=== PATIENT | male | born 1975 | race Two or more races ===

== ENCOUNTER 2020-07-25 10:39 | Inpatient (IN) | payer MEDICAID ==
[~2020-07-25] VITALS: Ht 157.5 cm; Wt 74.8 kg
[~2020-07-25 10:39] MED LIST: HYDROCHLOROTHIA25 MG ORAL
[2020-07-25 11:30] VITALS: BP 118/78
--- NOTE | 2020-07-25 11:30 | NUR ---
ED Nurse Note: Pt came to ED for abdominal pain 8/10 entire abdomen. He states he needs fluid removal. Pt has history of liver cirrhosis. Pt is alert and orientedx4, ambulatory. Pt set up on monitor. Blood drawn and sent to lab. No nausea, vomiting.
[2020-07-25 11:39] LABS: BASOPHILS % (AUTO) 1.4 % (0.0-2.0); HEMATOCRIT 26.3 % (42.0-52.0); LYMPHOCYTES % (AUTO) 6.9 % (20.0-45.0); MEAN CORPUSCULAR VOLUME 86 FL (80-99); NEUTROPHILS % (AUTO) 78.7 % (45.0-75.0); PLATELET COUNT 105 K/UL (150-450); RED BLOOD COUNT 3.07 M/UL (4.70-6.10); RED CELL DISTRIBUTION WIDTH 15.2 % (11.6-14.8); WHITE BLOOD COUNT 4.8 K/UL (4.8-10.8)
[2020-07-25 11:54] LABS: ANION GAP 10 mmol/L (5-15); BLOOD UREA NITROGEN 17 mg/dL (7-18); CALCIUM 7.3 MG/DL (8.5-10.1); CARBON DIOXIDE 19 MMOL/L (21-32); CHLORIDE 91 MMOL/L (98-107); POTASSIUM 3.3 MMOL/L (3.5-5.1); SODIUM 120 MMOL/L (136-145)
[2020-07-25 12:04] LABS: ALANINE AMINOTRANSFERASE 39 U/L (12-78); ALBUMIN 1.8 G/DL (3.4-5.0); ALBUMIN/GLOBULIN RATIO 0.4 (1.0-2.7); ALKALINE PHOSPHATASE 148 U/L (46-116); ASPARTATE AMINO TRANSFERASE 106 U/L (15-37); BILIRUBIN,DIRECT 0.7 MG/DL (0.0-0.3); BILIRUBIN,TOTAL 1.1 MG/DL (0.2-1.0)
[2020-07-25] MEDS ORDERED: Morphine Sulfate 4mg/ml Inj (IV USE ONLY) IVP ONE (13:15)
[2020-07-25 13:22] LABS: APPEARANCE,URINE CLEAR; BILIRUBIN, URINE NEGATIVE (NEGATIVE); COLOR,URINE BROWN; GLUCOSE, URINE (UA) NEGATIVE (NEGATIVE); KETONES,URINE 1+ (NEGATIVE); LEUKOCYTE ESTERASE ,URINE 1+ (NEGATIVE); NITRITE,URINE NEGATIVE (NEGATIVE); PH,URINE 5 (4.5-8.0); PROTEIN,URINE 1+ (NEGATIVE); UROBILINOGEN,URINE 1 MG/DL (0.0-1.0)
--- NOTE | 2020-07-25 13:22 | Emergency Room Report ---
History of Present Illness General Chief Complaint: Abdominal Pain Source: Patient Present Illness HPI 45-year-old male with history of alcoholism and alcoholic liver cirrhosis and chronic ascites here with abdominal distention and epigastric pain. Patient says that he has been having mild epigastric jean marie pain and abdominal distention worsening over the past several days. Patient has been seen here in the past for paracentesis in the emergency department. Pain is sharp in nature, located in the epigastrium, does not otherwise radiate. No fevers, chills, chest pain, palpitations, shortness of breath, back pain, other abdominal pain, nausea, vomiting, diarrhea, dysuria. Allergies: Coded Allergies: No Known Allergies (Unverified , 05/24/20) COVID-19 Screening Contact w/high risk pt: No Experienced COVID-19 symptoms?: No COVID-19 Testing performed REFRIGERATOR CRATER: No Nursing Documentation-[facility] Past Medical History: No History, Except For Review of Systems All Other Systems: negative except mentioned in HPI Physical Exam Vital Signs Date Time Temp Pulse Resp B/P (MAP) Pulse Ox O2 Delivery O2 Flow Rate FiO2 07/25/20 10:47 98.8 110 17 120/74 (89) 97 Room Air 07/25/20 11:30 98 Sp02 EP Interpretation: reviewed, normal General Appearance: no apparent distress, alert, GCS 15, non-toxic Head: normocephalic, atraumatic Eyes: bilateral eye normal inspection, bilateral eye PERRL ENT: hearing grossly normal, normal pharynx, no angioedema, normal voice Neck: full range of motion, supple/symm/no masses Respiratory: chest non-tender, lungs clear, normal breath sounds, speaking full sentences Cardiovascular #1: regular rate, rhythm, no edema Cardiovascular #2: 2+ carotid (R), 2+ carotid (L), 2+ radial (R), 2+ radial (L), 2+ dorsalis pedis (R), 2+ dorsalis pedis (L) Gastrointestinal: normal bowel sounds, non tender, soft, no guarding, no rebound, other - Severely distended abdomen with positive fluid wave. No tenderness on palpation. No rebound or guarding Rectal: deferred Genitourinary: normal inspection, no CVA tenderness Musculoskeletal: back normal, normal range of motion, calf tenderness, gait/station normal, non-tender Neurologic: alert, motor strength/tone normal, oriented x3, sensory intact, responsive, speech normal Psychiatric: judgement/insight normal, memory normal, mood/affect normal, no suicidal/homicidal ideation Reflexes: 3+ bicep (R), 3+ bicep (L), 3+ tricep (R), 3+ tricep (L), 3+ knee (R), 3+ knee (L) Lymphatic: no adenopathy Medical Decision Making Diagnostic Impression: Primary Impression: Alcoholic cirrhosis of liver with ascites Additional Impressions: Pancreatitis Hyponatremia ER Course Laboratory Tests Test 07/25/20 11:20 07/25/20 12:10 White Blood Count 4.8 K/UL (4.8-10.8) Red Blood Count 3.07 M/UL (4.70-6.10) L Hemoglobin 9.0 G/DL (14.2-18.0) L Hematocrit 26.3 % (42.0-52.0) L Mean Corpuscular Volume 86 FL (80-99) Mean Corpuscular Hemoglobin 29.2 PG (27.0-31.0) Mean Corpuscular Hemoglobin Concent 34.1 G/DL (32.0-36.0) Red Cell Distribution Width 15.2 % (11.6-14.8) H Platelet Count 105 K/UL (150-450) L Mean Platelet Volume 5.8 FL (6.5-10.1) L Neutrophils (%) (Auto) 78.7 % (45.0-75.0) H Lymphocytes (%) (Auto) 6.9 % (20.0-45.0) L Monocytes (%) (Auto) 13.0 % (1.0-10.0) H Eosinophils (%) (Auto) 0.0 % (0.0-3.0) Basophils (%) (Auto) 1.4 % (0.0-2.0) Sodium Level 120 MMOL/L (136-145) L Potassium Level 3.3 MMOL/L (3.5-5.1) L Chloride Level 91 MMOL/L (98-107) L Carbon Dioxide Level 19 MMOL/L (21-32) L Anion Gap 10 mmol/L (5-15) Blood Urea Nitrogen 17 mg/dL (7-18) Creatinine 1.0 MG/DL (0.55-1.30) Estimated Glomerular Filtration Rate > 60 mL/min (>60) Glucose Level 193 MG/DL (74-106) H Calcium Level 7.3 MG/DL (8.5-10.1) L Total Bilirubin 1.1 MG/DL (0.2-1.0) H Direct Bilirubin 0.7 MG/DL (0.0-0.3) H Aspartate Amino Transferase (AST) 106 U/L (15-37) H Alanine Aminotransferase (ALT) 39 U/L (12-78) Alkaline Phosphatase 148 U/L (46-116) H Total Protein 6.5 G/DL (6.4-8.2) Albumin 1.8 G/DL (3.4-5.0) L Globulin 4.7 g/dL Albumin/Globulin Ratio 0.4 (1.0-2.7) L Lipase 1172 U/L (73-393) H Urine Color Brown Urine Appearance Clear Urine pH 5 (4.5-8.0) Urine Specific [place] 1.020 (1.005-1.035) Urine Protein 1+ (NEGATIVE) H Urine Glucose (UA) Negative (NEGATIVE) Urine Ketones 1+ (NEGATIVE) H Urine Blood 1+ (NEGATIVE) H Urine Nitrite Negative (NEGATIVE) Urine Bilirubin Negative (NEGATIVE) Urine Urobilinogen 1 MG/DL (0.0-1.0) H Urine Leukocyte Esterase 1+ (NEGATIVE) H Urine RBC 0-2 /HPF (0 - 0) H Urine WBC 2-4 /HPF (0 - 0) Urine Squamous Epithelial Cells None /LPF (NONE/OCC) Urine Bacteria Occasional /HPF (NONE) Urine Hyaline Casts 10-15 /LPF (NONE) H Urine Fine Granular Casts 0-2 /LPF (NONE) H Urine Mucus Moderate /LPF (NONE/OCC) H EKG: NSR, no ischemia, intervals WNL. No ectopy Rhythm strip: patient monitored for arrhythmias - no malignant dysrhythmias, runs of PVCs, nor pauses noted 45-year-old male with history of alcoholic liver cirrhosis and chronic ascites here with abdominal distention and epigastric abdominal pain. Patient was noted to be hyponatremic with a sodium of 120 in the emergency department. Potassium 3.3. Chloride 91. Patient was given 1 L of IV normal saline and repeat BMP will be performed after the fluids are finished infusing. Potassium was also repleted in the emergency department. EKG was unremarkable. Patient had a non- peritoneal take abdomen and no leukocytosis. Low suspicion for SBP at this time. Lipase highly elevated at 1200. Patient will undergo CT abdomen pelvis with IV contrast. Signed out to oncoming physician. Patient to be admitted to telemetry upon completion of CT scan. Last Vital Signs Date Time Temp Pulse Resp B/P (MAP) Pulse Ox O2 Delivery O2 Flow Rate FiO2 07/25/20 11:30 99 16 Room Air 98 07/25/20 11:30 98.8 118/78 98 Referrals: NOT CHOSEN ZULAY/,REFERRING (PCP) Garry Romero M.D. Jul 25, 2020 13:22
[2020-07-25] MEDS ORDERED: Omnipaque-300 100ml vial INJ PRN (13:30)
--- NOTE | 2020-07-25 14:10 | Consultation ---
Consult Note Consult Note Asked to evaluate at the request of Dr. Willis for fluid and electrolyte gerson morton 45-year-old male with history of alcoholism and alcoholic liver cirrhosis and chronic ascites here with abdominal distention and epigastric pain. Patient says that he has been having mild epigastric jean marie pain and abdominal distention worsening over the past several days. Patient has been seen here in the past for paracentesis in the emergency department. Pain is sharp in nature, located in the epigastrium, does not otherwise radiate. No fevers, chills, chest pain, palpitations, shortness of breath, back pain, other abdominal pain, nausea, vomiting, diarrhea, dysuria. Allergies: No Known Allergies (Unverified , 05/24/20) COVID-19 Screening Contact w/high risk pt: No Experienced COVID-19 symptoms?: No COVID-19 Testing performed CONTENT DEVELOPMENT SPECIALIST: No VITAL SIGNS: Temperature 97.9, pulse is 77, blood pressure 110/71. GENERAL APPEARANCE: No acute distress. HEAD AND NECK: Slightly whitish tongue. HEART: Normal rate. LUNGS: Clear. ABDOMEN: Distended with ascites. Had big umbilical hernia. EXTREMITIES: No edema NEUROLOGIC: Awake, alert, oriented x3. LABORATORY AND DIAGNOSTIC DATA: Sodium 123, potassium 3.7, chloride 95, bicarb 18, BUN 17, creatinine 1, glucose is 131. Bilirubin is 1.1. Ammonia is 82. Lipase level is 1068. AST 84, ALT 39, alkaline phosphatase is 142. Albumin is 1.8. . Assessment/Plan Hyponatremia Hypokalemia Anemia, low iron, low folate Hypoalbuminemia High lipase Cirrhosis, elevated ammonia level, portal hypertension Slow saline hydration Potassium supplement Anemia work-up Muro catheter Monitor intake and output Per consultants True Smith MD Jul 25, 2020 14:10
--- NOTE | 2020-07-25 14:24 | NUR ---
ED Nurse Note: Report given to Luke RODRIGUEZ [facility] floor.
--- NOTE | 2020-07-25 14:40 | NUR ---
ED Nurse Note: Pt transferred to [facility] floor with all belongings. Pt is alert and orientedx4, ambulatory. No acute distress.
--- NOTE | 2020-07-25 14:45 | NUR ---
NURSE NOTES: Received report from Lizeth from ER. Patient was admitted, patient is AAOX4, on room air. Breathing is even and unlabored, no SOB noted at this time. IV site patent and intact. Belongings checked, signed and confirmed with patient. Skin is intact, able to ambulate with assist. Patient has a sever distended abdomen with a hernia at LLQ. Patient complaints of pain when touched. Abdomen is very round, tender, and distended. Patient stated he only takes one medication, patient states he lives in his van and is considered homeless. RN contacted Dr. Story for admission order, awaiting call back. Bed is locked and placed in lowest position with bed alarm on. Call light within reach. Will continue to monitor
[2020-07-25] MEDS: D5NS w/KCl 40mEq 1000ml 1,000 ML IV SCH (15:00)
[2020-07-25 16:00] VITALS: BP 113/65
--- NOTE | 2020-07-25 16:31 | Diagnostic Imaging Report ---
Clinical Indication: Abdominal distention and epigastric pain Technique: No oral contrast utilized, per emergency room physician request IV administration nonionic contrast. Venous phase spiral acquisition obtained through the abdomen and pelvis. Multiplanar reconstructions were generated. Total dose length product 584 mGycm. CTDIvol(s) 11 mGy. Dose reduction achieved using automated exposure control Comparison: none Findings: There is massive ascites. No free intraperitoneal gas demonstrated. Ascites protrudes into a large periumbilical hernia and distends it. Fluid also herniates into the bilateral inguinal canals.. There is considerable edema of the anterior abdominal wall subcutaneous fat. There is extensive edema of the mesenteric and omental fat. There is also a lumbar region edema. Lack of enteric contrast limits assessment of the GI tract. The distal esophagus, stomach, duodenum are unremarkable. No small bowel distention. The appendix is normal. No evidence of diverticulosis or diverticulitis. The liver demonstrates some atrophy, relative hypertrophy of the left lobe, and surface nodularity. No focal abnormality. The gallbladder and bile ducts are unremarkable. Large paraesophageal varices are demonstrated. There are also some perigastric varices. The spleen is not enlarged. The pancreas, adrenals, kidneys are unremarkable. No retroperitoneal or mesenteric mass or adenopathy. No pelvic mass or adenopathy. The included lung bases are clear. The bones demonstrate evidence of prior thoracolumbar spine fusion surgery. Impression: Limited assessment of the GI tract, due to lack of enteric contrast administration. Evidence of hepatic cirrhosis Stigmata of portal hypertension, including massive ascites and large esophageal varices. Anasarca, likely related to the above, with diffuse edema of the subcutaneous, mesenteric, omental fat in addition to the ascites Ascites herniated into a large periumbilical hernia, as well as into the bilateral inguinal canals Evidence of prior spinal fusion surgery The CT scanner at [facility] is accredited by the [employer] and the scans are performed using protocols designed to limit radiation exposure to as low as reasonably achievable to attain images of sufficient resolution adequate for diagnostic evaluation.
--- NOTE | 2020-07-25 18:19 | Brief Operative Note ---
Immediate Post Operative Note Operative Note Pre-op Diagnosis: ascites Procedure: paracentesis Post-op Diagnosis: same as pre-op Surgeon: Janusz Kamara Anesthesia: local Specimen: yes - 50 ml fluid sent to lab Complications: none Fluids: none Implant(s) used?: No Dominguez Kamara MD Jul 25, 2020 18:19
--- NOTE | 2020-07-25 18:19 | Pre-Procedure Note/Attestation ---
Pre-Procedure Note/Attestation Complete Prior to Procedure Planned Procedure: not applicable Procedure Narrative: paracentesis Indications for Procedure Pre-Operative Diagnosis: ascites Attestation I attest that I discussed the nature of the procedure; its benefits; risks and complications; and alternatives (and the risks and benefits of such alternatives), prior to the procedure, with the patient (or the patient's legal client services representative). I attest that, if there was a reasonable possibility of needing a blood almanzar sfusion, the patient (or the patient's legal client services representative) was given the [facility] standardized written summary, pursuant to the Ruben Maritza Blood Safety Act ([place] Health and Safety Code # 1645, as amended). I attest that I re-evaluated the patient just prior to the surgery and that there has been no change in the patient's H&P, except as documented below: Dominguez Guadarrama MD Jul 25, 2020 18:19
--- NOTE | 2020-07-25 18:29 | Diagnostic Imaging Report ---
Indications: Ascites Technique: Ultrasound used to localize optimal puncture site. Sterile prepping and draping left lower quadrant. Local anesthesia with 1% lidocaine. Under real-time ultrasound guidance, puncture peritoneal space using paracentesis needle. Stylet removed. Catheter placed to vacuum bottle suction. Total 6.2 liters of cloudy yellow fluid aspirated. Patient tolerated procedure well, without immediate complication. Findings: Followup sonography demonstrates complete resolution of peritoneal fluid. Impression: Successful ultrasound-guided paracentesis, yielding 6.2 liters of fluid
[2020-07-25] MEDS: cefTRIAXone 1 GM in D5W 55 ML IVPB SCH (18:50)
--- NOTE | 2020-07-25 19:34 | NUR ---
NURSE HAND-OFF: Important Events on Shift: Paracentesis 6.2L out, vomitted, admission Patient Status: stable Diet: NPO Pending Orders: N/a Pending Results/Labs:N/a Pending MD notification:N/a Latest Vital Signs: Temperature 98.4 , Pulse 95 , B/P 113 /65 , Respiratory Rate 20 , O2 SAT 99 , Room Air, O2 Flow Rate . Vital Sign Comment: Stable Latest Taylor Fall Score: 30 Fall Risk: Medium Risk Safety Measures: Call light Within Reach, Bed Alarm , Side Rails Side Rails x2, Bed position Low and Locked. Fall Precautions: Yellow Socks Yellow Gown Report given to JENNIFER Sutherland.
--- NOTE | 2020-07-25 19:35 | NUR ---
NURSE NOTES: Received report from sugey fragoso. patient is on bed, awake and verbally responsive. on room air. no sob. per richmond, " s/p paracentesis (left abdomen site) 6.2 liters out and an hernia on the lower abdomen. patent denies any pain at the moment. had vomited and zofran given. NPO except ice chips and meds. muñoz inserted today 18F for strict I and O. right ac running d5Ns + 40 meq @ 75 ml/s hr. reiterated to call and ask for assistance. call light and light button within easy reach. bed alarm on. bed locked and in lowest position.
[2020-07-25 20:00] VITALS: BP 97/59
[2020-07-25] MEDS: Acetaminophen 500mg (ES) tab ORAL PRN (20:30)
--- NOTE | 2020-07-25 22:30 | NUR ---
NURSE NOTES: patient complains of troubled sleeping. dr. villa called and received an order to give benadryl 25 mg po x1 for insomnia. order noted and carried out. pt took the medication.
[2020-07-26] VITALS: BP 107/71
[2020-07-26] MEDS: Acetaminophen 500mg (ES) tab ORAL PRN ×2 (02:22→08:18)
--- NOTE | 2020-07-26 03:30 | Consultation ---
DATE OF CONSULTATION: 07/25/2020 HISTORY OF PRESENT ILLNESS: This is a 45-year-old male with a history of alcohol dependence, alcoholic cirrhosis, and left-sided abdominal distention, who has been admitted to the hospital for medical stabilization. The patient is a anxiety. The patient is drinking heavily. The patient has hypertension, , anxiety in the past ?. No suicidal or homicidal ideation noted. The patient has insomnia and anxiety. PAST PSYCHIATRY HISTORY: Depression and anxiety. PAST MEDICAL HISTORY: As above. ALLERGIES: No known drug allergies. SUBSTANCE ABUSE HISTORY: No known history of illicit drug use or alcohol. MENTAL STATUS EXAMINATION: The patient is alert and oriented times self, place, and situation. Mood is anxious. Affect is blunted. Congruent with mood. Thought process is concrete. Thought content, no suicidal or homicidal ideation. Cognition is intact. Insight and judgment is fair. ASSESSMENT: Stratton I Alcohol dependence. Anxiety disorder. Insomnia. Stratton II Deferred. Stratton III As above. Stratton IV . Stratton V 50. PLAN: 1. We will start the patient on Ativan p.r.n. 2. Thiamine. 3. Folate. 4. Remeron. Allison Naik M.D. DR: WADE JOB#: [id number] CC:
[2020-07-26 04:00] VITALS: BP 107/70
[2020-07-26] MEDS: D5NS w/KCl 40mEq 1000ml 1,000 ML IV SCH (04:20)
[2020-07-26 05:30] LABS: HEMATOCRIT 27.1 % (42.0-52.0); HEMOGLOBIN 9.2 G/DL (14.2-18.0); MEAN CORPUSCULAR VOLUME 86 FL (80-99); PLATELET COUNT 94 K/UL (150-450); RED BLOOD COUNT 3.16 M/UL (4.70-6.10); RED CELL DISTRIBUTION WIDTH 15.3 % (11.6-14.8); WHITE BLOOD COUNT 5.1 K/UL (4.8-10.8)
[2020-07-26 05:49] LABS: AMMONIA 82 umol/L (11-32)
[2020-07-26] MEDS ORDERED: LORazepam 1mg tab ORAL SCH (06:00)
[2020-07-26 06:10] LABS: ALANINE AMINOTRANSFERASE 39 U/L (12-78); ALBUMIN 1.8 G/DL (3.4-5.0); ALBUMIN/GLOBULIN RATIO 0.3 (1.0-2.7); ALKALINE PHOSPHATASE 142 U/L (46-116); ANION GAP 10 mmol/L (5-15); ASPARTATE AMINO TRANSFERASE 84 U/L (15-37); BILIRUBIN,TOTAL 1.1 MG/DL (0.2-1.0); BLOOD UREA NITROGEN 17 mg/dL (7-18); CALCIUM 7.3 MG/DL (8.5-10.1); CARBON DIOXIDE 18 MMOL/L (21-32); CHLORIDE 95 MMOL/L (98-107); CHOLESTEROL 98 MG/DL (< 200); FERRITIN 25 NG/ML (8-388); GAMMA GLUTAMYL TRANSPEPTIDASE 264 U/L (5-85); HDL CHOLESTEROL 48 MG/DL (40-60); PHOSPHORUS 3.4 MG/DL (2.5-4.9); POTASSIUM 3.7 MMOL/L (3.5-5.1); SODIUM 123 MMOL/L (136-145); TRIGLYCERIDES 33 MG/DL (30-150)
[2020-07-26 06:18] LABS: BILIRUBIN,DIRECT 0.7 MG/DL (0.0-0.3)
[2020-07-26 06:20] LABS: % IRON SATURATION 9 % (15-50); IRON 21 ug/dL (50-175); TOTAL IRON BINDING CAPACITY 236 ug/dL (250-450)
--- NOTE | 2020-07-26 06:20 | NUR ---
NURSE HAND-OFF: Important Events on Shift:pain mngt; strict I &0, muñoz care; Patient Status: stable Diet: NPO except ice chips and meds Pending Orders: Pending Results/Labs:pending lab results Pending MD notification: Latest Vital Signs: Temperature 97.9 , Pulse 88 , B/P 107 /70 , Respiratory Rate 18 , O2 SAT 100 , Room Air, O2 Flow Rate . Vital Sign Comment: Latest Taylor Fall Score: 30 Fall Risk: Medium Risk Safety Measures: Call light Within Reach, Bed Alarm Zone 1, Side Rails Side Rails x2, Bed position Low and Locked. Fall Precautions: Patient Fall Education Addendum: 07/26/20 at 0720 by Clarcie Sutherland RN HAND-OFF: Report given to sugey fragoso. intake of 1/2 cup ice chips; output of 300 ml.
--- NOTE | 2020-07-26 06:43 | General Progress Note ---
Subjective ROS Limited/Unobtainable: Yes Allergies: Coded Allergies: No Known Allergies (Unverified , 05/24/20) Objective Last 24 Hour Vital Signs Date Time Temp Pulse Resp B/P (MAP) Pulse Ox O2 Delivery O2 Flow Rate FiO2 07/26/20 04:00 97.9 88 18 107/70 (82) 100 07/26/20 02:52 99.0 07/26/20 00:00 99.0 97 20 107/71 (83) 99 07/25/20 21:00 99.1 07/25/20 21:00 Room Air 07/25/20 20:00 99.1 98 20 97/59 (72) 100 07/25/20 16:00 98.4 95 20 113/65 (81) 99 07/25/20 15:08 Room Air 07/25/20 14:40 98.1 79 16 127/84 100 Room Air 07/25/20 13:52 98.8 07/25/20 11:30 99 16 Room Air 98 07/25/20 11:30 98.8 99 16 118/78 98 Room Air 07/25/20 10:47 98.8 110 17 120/74 (89) 97 Room Air Intake and Output 07/25/20 07/26/20 19:00 07:00 Output Total 300 ml Balance -300 ml Output Urine Total 300 ml # Voids 1 # Bowel Movements 1 Laboratory Tests 07/25/20 11:20: White Blood Count 4.8, Red Blood Count 3.07L, Hemoglobin 9.0L, Hematocrit 26.3L, Mean Corpuscular Volume 86, Mean Corpuscular Hemoglobin 29.2, Mean Corpuscular Hemoglobin Concent 34.1, Red Cell Distribution Width 15.2H, Platelet Count 105L, Mean Platelet Volume 5.8L, Neutrophils (%) (Auto) 78.7H, Lymphocytes (%) (Auto) 6.9L, Monocytes (%) (Auto) 13.0H, Eosinophils (%) (Auto) 0.0, Basophils (%) (Auto) 1.4, Sodium Level 120L, Potassium Level 3.3L, Chloride Level 91L, Carbon Dioxide Level 19L, Anion Gap 10, Blood Urea Nitrogen 17, Creatinine 1.0, Estimat Glomerular Filtration Rate > 60, Glucose Level 193H, Calcium Level 7.3L, Total Bilirubin 1.1H, Direct Bilirubin 0.7H, Aspartate Amino Transf (AST/SGOT) 106H, Alanine Aminotransferase (ALT/SGPT) 39, Alkaline Phosphatase 148H, Total Protein 6.5, Albumin 1.8L, Globulin 4.7, Albumin/Globulin Ratio 0.4L, Lipase 1172H 07/25/20 11:25: Hemoglobin A1c 5.2, Osmolality 304, Gamma Glutamyl Transpeptidase 276H, Thyroid Stimulating Hormone (TSH) 2.256 07/25/20 12:10: Urine Color Brown, Urine Appearance Clear, Urine pH 5, Urine Specific [place] 1.020, Urine Protein 1+H, Urine Glucose (UA) Negative, Urine Ketones 1+H, Urine Blood 1+H, Urine Nitrite Negative, Urine Bilirubin Negative, Urine Urobilinogen 1H, Urine Leukocyte Esterase 1+H, Urine RBC 0-2H, Urine WBC 2-4, Urine Squamous Epithelial Cells None, Urine Bacteria Occasional, Urine Hyaline Casts 10-15H, Ur ine Fine Granular Casts 0-2H, Urine Mucus ModerateH, Urine Osmolality 776H, Urine Random Sodium < 20L, Urine Opiates Screen Negative, Urine Barbiturates Screen Negative, Phencyclidine (PCP) Screen Negative, Urine Amphetamines Screen Negative, Urine Benzodiazepines Screen Negative, Urine Cocaine Screen Negative, Urine Marijuana (THC) Screen Negative 07/26/20 05:17: White Blood Count 5.1, Red Blood Count 3.16L, Hemoglobin 9.2L, Hematocrit 27.1L, Mean Corpuscular Volume 86, Mean Corpuscular Hemoglobin 29.2, Mean Corpuscular Hemoglobin Concent 34.1, Red Cell Distribution Width 15.3H, Platelet Count 94L, Mean Platelet Volume 5.4L, Neutrophils (%) (Auto) , Lymphocytes (%) (Auto) , Monocytes (%) (Auto) , Eosinophils (%) (Auto) , Basophils (%) (Auto) , Sodium Level 123L, Potassium Level 3.7, Chloride Level 95L, Carbon Dioxide Level 18L, Anion Gap 10, Blood Urea Nitrogen 17, Creatinine 1.0, Estimat Glomerular Filtration Rate > 60, Glucose Level 131H, Calcium Level 7.3L, Total Bilirubin 1.1H, Direct Bilirubin 0.7H, Aspartate Amino Transf (AST/SGOT) 84H, Alanine Aminotransferase (ALT/SGPT) 39, Alkaline Phosphatase 142H, Total Protein 7.3, Albumin 1.8L, Globulin 5.5, Albumin/Globulin Ratio 0.3L, Lipase 1068H, Gamma Glutamyl Transpeptidase 264H, Neutrophils % (Manual) [Pending], Lymphocytes % (Manual) [Pending], Platelet Estimate [Pending], Platelet Morphology [Pending], Uric Acid 5.0, Phosphorus Level 3.4, Magnesium Level 1.9, Iron Level 21L, Total Iron Binding Capacity 236L, Percent Iron Saturation 9L, Unsaturated Iron Binding 215, Ferritin 25, Ammonia 82H, C-Reactive Protein, Quantitative 5.6H, Pro-B-Type Natriuretic Peptide 220H, Triglycerides Level 33, Cholesterol Level 98, LDL Cholesterol 50, HDL Cholesterol 48, Cholesterol/HDL Ratio 2.0L, Vitamin B12 Level 1138H, Folate 6.4L Height (Feet): 5 Height (Inches): 2.00 Weight (Pounds): 175 General Appearance: no apparent distress EENT: normal ENT inspection Neck: supple Cardiovascular: normal rate Respiratory/Chest: decreased breath sounds Abdomen: hypoactive bowel sounds, tender Extremities: non-tender Assessment/Plan Assessment/Plan: cirrhosis ascites>> s/p 6 lit paracentesis iron def anemia folic acid def hypo natremia thrombocytopenia portal hypertension elevated ammonia elevated lipase iv iron folic acid add aldactone hold lasix HL iv clears and advance as tolerated lactulose and xifaxan may need EGD repeat labs Montana Cohen MD Jul 26, 2020 06:43
--- NOTE | 2020-07-26 07:24 | NUR ---
NURSE NOTES: Received report from JENNIFER Sutherland. Patient seen in bed, AAox4, able to make needs known. Patient is on room air, breathing is even and unlabored with no SOB noted at this time. IV site patent and intact. Muñoz catheter noted, muñoz is patent and anchored draining well via gravity. Patient on SCD, able to ambulate when needed. Umbilical hernia noted, patient denies pain in the abdomen at this time. RN instructed patient to use call light before ambulating if felt weak or dizzy. Bed is locked and placed in lowest position. Side rails up x2, call light within reach. Will continue to monitor
[2020-07-26 08:00] VITALS: BP 100/74
[2020-07-26] MEDS: Thiamine 100mg tab ORAL SCH (08:17)
[2020-07-26] MEDS: Lactulose 10gm/15ml UDC ORAL SCH ×2 (08:18→12:28)
[2020-07-26] MEDS: Spironolactone 50mg tab ORAL SCH (08:25)
--- NOTE | 2020-07-26 08:50 | Consultation ---
History of Present Illness General Chief Complaint: Abdominal Pain Present Illness Allergies: Coded Allergies: No Known Allergies (Unverified , 05/24/20) Medication History Scheduled Hydrochlorothiazide* (Hydrochlorothiazide*), 25 MG ORAL DAILY Patient History Healthcare decision maker Resuscitation status Advanced Directive on File Physical Exam Last 24 Hour Vital Signs Date Time Temp Pulse Resp B/P (MAP) Pulse Ox O2 Delivery O2 Flow Rate FiO2 07/26/20 08:00 97.9 82 20 100/74 (83) 100 07/26/20 04:00 97.9 88 18 107/70 (82) 100 07/26/20 02:52 99.0 07/26/20 00:00 99.0 97 20 107/71 (83) 99 07/25/20 21:00 99.1 07/25/20 21:00 Room Air 07/25/20 20:00 99.1 98 20 97/59 (72) 100 07/25/20 16:00 98.4 95 20 113/65 (81) 99 07/25/20 15:08 Room Air 07/25/20 14:40 98.1 79 16 127/84 100 Room Air 07/25/20 13:52 98.8 07/25/20 11:30 99 16 Room Air 98 07/25/20 11:30 98.8 99 16 118/78 98 Room Air 07/25/20 10:47 98.8 110 17 120/74 (89) 97 Room Air Intake and Output 07/25/20 07/26/20 19:00 07:00 Output Total 300 ml Balance -300 ml Output Urine Total 300 ml # Voids 1 # Bowel Movements 1 Laboratory Tests Test 07/25/20 11:20 07/25/20 11:25 07/25/20 12:10 07/26/20 05:17 White Blood Count 4.8 K/UL (4.8-10.8) 5.1 K/UL (4.8-10.8) Red Blood Count 3.07 M/UL (4.70-6.10) L 3.16 M/UL (4.70-6.10) L Hemoglobin 9.0 G/DL (14.2-18.0) L 9.2 G/DL (14.2-18.0) L Hematocrit 26.3 % (42.0-52.0) L 27.1 % (42.0-52.0) L Mean Corpuscular Volume 86 FL (80-99) 86 FL (80-99) Mean Corpuscular Hemoglobin 29.2 PG (27.0-31.0) 29.2 PG (27.0-31.0) Mean Corpuscular Hemoglobin Concent 34.1 G/DL (32.0-36.0) 34.1 G/DL (32.0-36.0) Red Cell Distribution Width 15.2 % (11.6-14.8) H 15.3 % (11.6-14.8) H Platelet Count 105 K/UL (150-450) L 94 K/UL (150-450) L Mean Platelet Volume 5.8 FL (6.5-10.1) L 5.4 FL (6.5-10.1) L Neutrophils (%) (Auto) 78.7 % (45.0-75.0) H % (45.0-75.0) Lymphocytes (%) (Auto) 6.9 % (20.0-45.0) L % (20.0-45.0) Monocytes (%) (Auto) 13.0 % (1.0-10.0) H % (1.0-10.0) Eosinophils (%) (Auto) 0.0 % (0.0-3.0) % (0.0-3.0) Basophils (%) (Auto) 1.4 % (0.0-2.0) % (0.0-2.0) Sodium Level 120 MMOL/L (136-145) L 123 MMOL/L (136-145) L Potassium Level 3.3 MMOL/L (3.5-5.1) L 3.7 MMOL/L (3.5-5.1) Chloride Level 91 MMOL/L (98-107) L 95 MMOL/L (98-107) L Carbon Dioxide Level 19 MMOL/L (21-32) L 18 MMOL/L (21-32) L Anion Gap 10 mmol/L (5-15) 10 mmol/L (5-15) Blood Urea Nitrogen 17 mg/dL (7-18) 17 mg/dL (7-18) Creatinine 1.0 MG/DL (0.55-1.30) 1.0 MG/DL (0.55-1.30) Estimat Glomerular Filtration Rate > 60 mL/min (>60) > 60 mL/min (>60) Glucose Level 193 MG/DL (74-106) H 131 MG/DL (74-106) H Calcium Level 7.3 MG/DL (8.5-10.1) L 7.3 MG/DL (8.5-10.1) L Total Bilirubin 1.1 MG/DL (0.2-1.0) H 1.1 MG/DL (0.2-1.0) H Direct Bilirubin 0.7 MG/DL (0.0-0.3) H 0.7 MG/DL (0.0-0.3) H Aspartate Amino Transf (AST/SGOT) 106 U/L (15-37) H 84 U/L (15-37) H Alanine Aminotransferase (ALT/SGPT) 39 U/L (12-78) 39 U/L (12-78) Alkaline Phosphatase 148 U/L (46-116) H 142 U/L (46-116) H Total Protein 6.5 G/DL (6.4-8.2) 7.3 G/DL (6.4-8.2) Albumin 1.8 G/DL (3.4-5.0) L 1.8 G/DL (3.4-5.0) L Globulin 4.7 g/dL 5.5 g/dL Albumin/Globulin Ratio 0.4 (1.0-2.7) L 0.3 (1.0-2.7) L Lipase 1172 U/L (73-393) H 1068 U/L (73-393) H Hemoglobin A1c 5.2 % (4.3-6.0) Osmolality 304 mOsm/kg (297-317) Gamma Glutamyl Transpeptidase 276 U/L (5-85) H 264 U/L (5-85) H Thyroid Stimulating Hormone (TSH) 2.256 uiU/mL (0.358-3.740) Urine Color Brown Urine Appearance Clear Urine pH 5 (4.5-8.0) Urine Specific [place] 1.020 (1.005-1.035) Urine Protein 1+ (NEGATIVE) H Urine Glucose (UA) Negative (NEGATIVE) Urine Ketones 1+ (NEGATIVE) H Urine Blood 1+ (NEGATIVE) H Urine Nitrite Negative (NEGATIVE) Urine Bilirubin Negative (NEGATIVE) Urine Urobilinogen 1 MG/DL (0.0-1.0) H Urine Leukocyte Esterase 1+ (NEGATIVE) H Urine RBC 0-2 /HPF (0 - 0) H Urine WBC 2-4 /HPF (0 - 0) Urine Squamous Epithelial Cells None /LPF (NONE/OCC) Urine Bacteria Occasional /HPF (NONE) Urine Hyaline Casts 10-15 /LPF (NONE) H Urine Fine Granular Casts 0-2 /LPF (NONE) H Urine Mucus Moderate /LPF (NONE/OCC) H Urine Osmolality 776 mOsm/kg (429-449) H Urine Random Sodium < 20 mmol/L (20-110) L Urine Opiates Screen Negative (NEGATIVE) Urine Barbiturates Screen Negative (NEGATIVE) Phencyclidine (PCP) Screen Negative (NEGATIVE) Urine Amphetamines Screen Negative (NEGATIVE) Urine Benzodiazepines Screen Negative (NEGATIVE) Urine Cocaine Screen Negative (NEGATIVE) Urine Marijuana (THC) Screen Negative (NEGATIVE) Neutrophils % (Manual) Pending Lymphocytes % (Manual) Pending Platelet Estimate Pending Platelet Morphology Pending Uric Acid 5.0 MG/DL (2.6-7.2) Phosphorus Level 3.4 MG/DL (2.5-4.9) Magnesium Level 1.9 MG/DL (1.8-2.4) Iron Level 21 ug/dL (50-175) L Total Iron Binding Capacity 236 ug/dL (250-450) L Percent Iron Saturation 9 % (15-50) L Unsaturated Iron Binding 215 ug/dL (112-346) Ferritin 25 NG/ML (8-388) Ammonia 82 umol/L (11-32) H C-Reactive Protein, Quantitative 5.6 mg/dL (0.00-0.90) H Pro-B-Type Natriuretic Peptide 220 pg/mL (0-125) H Triglycerides Level 33 MG/DL (30-150) Cholesterol Level 98 MG/DL (< 200) LDL Cholesterol 50 mg/dL (<100) HDL Cholesterol 48 MG/DL (40-60) Cholesterol/HDL Ratio 2.0 (3.3-4.4) L Vitamin B12 Level 1138 PG/ML (193-986) H Folate 6.4 NG/ML (8.6-58.9) L Height (Feet): 5 Height (Inches): 2.00 Weight (Pounds): 175 Medications Current Medications Medications (Trade) Dose Ordered Sig/Desirae Route PRN Reason Start Time Stop Time Status Last Admin Dose Admin Acetaminophen (Tylenol) 500 mg Q4H PRN ORAL For Pain 07/25/20 17:15 08/24/20 17:14 07/26/20 08:18 Ceftriaxone Sodium 1 gm/ Dextrose 55 ml @ 110 mls/hr Q24H IVPB 07/25/20 17:00 08/01/20 16:59 07/25/20 18:50 Folic Acid (Folate) 1 mg DAILY ORAL 07/26/20 09:00 08/25/20 08:59 07/26/20 08:18 Iohexol (OMNIPAQUE-300 100ml) 100 ml NOW PRN INJ Radiology Procedure 07/25/20 13:30 07/27/20 13:29 Iron Sucrose 100 mg/Sodium Chloride 60 ml @ 240 mls/hr BEDTIME IVPB 07/26/20 21:00 07/30/20 21:14 Lactulose (Cephulac) 10 gm THREE TIMES A DAY ORAL 07/26/20 09:00 08/25/20 08:59 07/26/20 08:18 Lorazepam (Ativan) 2 mg Q2H PRN ORAL For Anxiety 07/26/20 00:45 08/02/20 00:44 Mirtazapine (Remeron) 15 mg BEDTIME ORAL 07/26/20 21:00 10/24/20 20:59 Ondansetron HCl (Zofran) 4 mg Q6H PRN IVP Nausea & Vomiting 07/25/20 19:00 08/24/20 18:59 07/25/20 19:29 Rifaximin (Xifaxan) 550 mg EVERY 12 HOURS ORAL 07/26/20 09:00 08/02/20 08:59 07/26/20 08:18 Spironolactone (Aldactone) 50 mg DAILY ORAL 07/26/20 09:00 08/25/20 08:59 07/26/20 08:25 Thiamine HCl (Vitamin B1) 100 mg DAILY ORAL 07/26/20 09:00 08/25/20 08:59 07/26/20 08:17 Assessment/Plan Assessment/Plan: (1) Abdominal pain (2) Pancreatitis seen dictated Gallito Cao Jul 26, 2020 08:50
--- NOTE | 2020-07-26 10:16 | Consultation ---
DATE OF CONSULTATION: 07/26/2020 PAIN MANAGEMENT CONSULTATION CONSULTING PHYSICIAN: Emilie Morrell MD. REFERRING PHYSICIAN: Guille Story MD. PHYSICIAN DUNGEON MASTER: DONATO Briseno. CHIEF COMPLAINT: Abdominal pain. HISTORY OF PRESENT ILLNESS: This is a 45-year-old male who is being seen on the Med/Surg floor of [facility] for initial pain management consultation. The patient was admitted under the care of Dr. Story due to abdominal pain, found to have pancreatitis as well as liver cirrhosis and ascites status post paracentesis. The patient is in bed, at this time comfortable. Denies any pain. Reports that his pain has been controlled well on the medication . PAST MEDICAL HISTORY: Ascites, alcoholism. PAST SURGICAL HISTORY: Denies. SOCIAL HISTORY: Denies smoking tobacco and IV drug abuse; however has history of alcohol abuse. ALLERGIES: No known drug allergies. MEDICATIONS: Hydrochlorothiazide. REVIEW OF SYSTEMS: Denies rash, fever, chills, sweating, dizziness, drowsiness, blurred vision, sore throat, or change in weight. No shortness of breath, chest pain. No nausea, vomiting, or diarrhea blood in the stool. No dysuria. PHYSICAL EXAMINATION: GENERAL: Alert, awake, and oriented. VITAL SIGNS: Blood pressure 100/74, heart rate 80, oxygen saturation 100%, respiratory rate 20, and temperature is 97.9 degrees Fahrenheit. HEENT: PERRLA. NECK: Range of motion is full in all directions. No tenderness to paracervical muscles. No adenopathy. LUNGS: Decreased breath sounds bilaterally. HEART: S1 and S2 regular. ABDOMEN: Distended. BACK: Range of motion is decreased in flexion and extension. EXTREMITIES: Upper and lower extremity range of motion is decreased due to the patient's condition. No cyanosis. No clubbing. Sensory is intact. Reflexes are not obtainable. No adenopathy. ASSESSMENT AND PLAN: The patient is a 45-year-old male with abdominal pain and pancreatitis. The patient will be continued on Tylenol as needed. The patient was discussed with Dr. Morrell and Dr. Morrell concurred. We will follow up with the patient. Thank you very much for the courtesy of this consultation. Emilie Morrell M.D. DONATO Briseno DR: Maryse JOB#: [id number] CC:
[2020-07-26] MEDS ORDERED: NaCl 3% 500ml 250 ML IV ONE (11:00)
--- NOTE | 2020-07-26 11:12 | NUR ---
NURSE NOTES: Dr. Kruse saw patient on the floor and gave RN order to D/c muñoz catheter per patients request
[2020-07-26 12:00] VITALS: BP 110/71
--- NOTE | 2020-07-26 13:03 | NUR ---
CASE MANAGEMENT:INITIAL REVIE 45 YR OLD OLD MALE WALKED IN TO ED CC;ABDOMINAL PAIN SI;ASCITES. LIVER CIRRHOSIS. HYPONATREMIA. PANCREATITIS. 98.8 110 17 120/74 97% ON RA H/H 9.0/26.3 PLT 105 NA 120 K+ 3.3 BG 193 CA 7.3 T-BILI 1.1 D-BILI 0.7 GGT 276 AST 106 ALP 108 ALB 1.8 LIPASE 1172 UA+ PROTEIN, KETONES, BLOOD, UROBILINOGEN, HYALINE CASTS, MUCUS, URINE OSMOLALITY 776 URINE TOX ~ NEGATIVE STOOL OB ~ RESULT PENDING ABD/PELVIS CT ~ Limited assessment of the GI tract, due to lack of enteric contrast administration. Evidence of hepatic cirrhosis Stigmata of portal hypertension, including massive ascites and large esophageal varices. Anasarca, likely related to the above, with diffuse edema of the subcutaneous, mesenteric, omental fat in addition to the ascites Ascites herniated into a large periumbilical hernia, as well as into the bilateral inguinal canals Evidence of prior spinal fusion surgery US PARACENTESIS/CYST BIOPSY ASPIRATION~ Successful ultrasound-guided paracentesis, yielding 6.2 liters of fluid IS;KCL IV IVF NS BOLUS IVF D5W @ 75 ML/HR BENADRYL PO ONCE MORPHINE IV ADMITTED TO MED SURG 07/26/20 @ 1004 MED SURG STATUS DCP;PATIENT REPORTS HOMELESSNESS Addendum: 07/26/20 at 1330 by KRISTYN MONTIEL LVN LVN INTERQUAL CRITERIA MET
--- NOTE | 2020-07-26 15:44 | NUR ---
RUBBER OFF NOTE SW met w/ pt to discuss homelessness. PT has been homeless for 3 years, living in his car. PT is currently unemployed, receives no income. 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 Pt has no children, no family in [place]. Pt's emergency contact is his friend, Ela Javed [phone]. PT denies substance abuse/ETOH/tobacco abuse. PT declined counseling/tx intervention on substance abuse. SW offered a placement assistance including board and cares, independent living facilities. PT declined, stating that he will go to his car upon DC. Pt reports his car is parked at [employer] [facility] [employer]. SW encouraged pt to reconsider the placement assistance but pt refused. Pt requested to be provided w/ a long sleeve shirt. SW provided one as requested. PT does not share any concerns/needs at this time. Pt will dc to preferred location via public transportation upon DC. SW to F/U as needed. Addendum: 07/26/20 at 1550 by BELL YOO Pt reports he is ambulatory w/o DME and independent w/ ADLs. Pt denies having mental health issue. PT declined to receive community resource packet.
--- NOTE | 2020-07-26 15:47 | Nephrology Progress Note ---
Assessment/Plan Problem List: (1) Hyponatremia (2) Alcoholic cirrhosis of liver with ascites (3) Pancreatitis (4) Elevated lipase (5) Anemia Assessment: Low iron, low folic acid Assessment Hyponatremia Hypokalemia Anemia Hypoalbuminemia High lipase Massive ascites Cirrhosis, portal hypertension Plan Discontinue Muro catheter per patient's request Slow saline hydration Potassium supplement as needed Anemia work-up noted: Folic acid, iron supplement Monitor intake and output Per consultants Subjective ROS Limited/Unobtainable: No Constitutional: Reports: malaise Objective Objective Last 24 Hour Vital Signs Date Time Temp Pulse Resp B/P (MAP) Pulse Ox O2 Delivery O2 Flow Rate FiO2 07/26/20 12:00 97.5 77 20 110/71 (84) 100 07/26/20 09:00 Room Air 07/26/20 08:00 97.9 82 20 100/74 (83) 100 07/26/20 04:00 97.9 88 18 107/70 (82) 100 07/26/20 02:52 99.0 07/26/20 00:00 99.0 97 20 107/71 (83) 99 07/25/20 21:00 99.1 07/25/20 21:00 Room Air 07/25/20 20:00 99.1 98 20 97/59 (72) 100 07/25/20 16:00 98.4 95 20 113/65 (81) 99 Intake and Output 07/25/20 07/26/20 19:00 07:00 Output Total 300 ml Balance -300 ml Output Urine Total 300 ml # Voids 1 # Bowel Movements 1 Laboratory Tests 07/26/20 05:17: White Blood Count 5.1, Red Blood Count 3.16L, Hemoglobin 9.2L, Hematocrit 27.1L, Mean Corpuscular Volume 86, Mean Corpuscular Hemoglobin 29.2, Mean Corpuscular Hemoglobin Concent 34.1, Red Cell Distribution Width 15.3H, Platelet Count 94L, Mean Platelet Volume 5.4L, Neutrophils (%) (Auto) , Lymphocytes (%) (Auto) , Monocytes (%) (Auto) , Eosinophils (%) (Auto) , Basophils (%) (Auto) , Differential Total Cells Counted 100, Neutrophils % (Manual) 77H, Lymphocytes % (Manual) 10L, Monocytes % (Manual) 7, Eosinophils % (Manual) 3, Basophils % (Ma nual) 0, Band Neutrophils 3, Platelet Estimate DecreasedL, Platelet Morphology Normal, Anisocytosis 1+, Sodium Level 123L, Potassium Level 3.7, Chloride Level 95L, Carbon Dioxide Level 18L, Anion Gap 10, Blood Urea Nitrogen 17, Creatinine 1.0, Estimat Glomerular Filtration Rate > 60, Glucose Level 131H, Uric Acid 5.0, Calcium Level 7.3L, Phosphorus Level 3.4, Magnesium Level 1.9, Iron Level 21L, Total Iron Binding Capacity 236L, Percent Iron Saturation 9L, Unsaturated Iron Binding 215, Ferritin 25, Total Bilirubin 1.1H, Direct Bilirubin 0.7H, Gamma Glutamyl Transpeptidase 264H, Aspartate Amino Transf (AST/SGOT) 84H, Alanine Aminotransferase (ALT/SGPT) 39, Alkaline Phosphatase 142H, Ammonia 82H, C- Reactive Protein, Quantitative 5.6H, Pro-B-Type Natriuretic Peptide 220H, Total Protein 7.3, Albumin 1.8L, Globulin 5.5, Albumin/Globulin Ratio 0.3L, Triglycerides Level 33, Cholesterol Level 98, LDL Cholesterol 50, HDL Cholesterol 48, Cholesterol/HDL Ratio 2.0L, Lipase 1068H, Vitamin B12 Level 1138H, Folate 6.4L 07/26/20 10:30: Stool Occult Blood [Pending] Height (Feet): 5 Height (Inches): 2.00 Weight (Pounds): 175 General Appearance: no apparent distress Cardiovascular: normal rate Respiratory/Chest: decreased breath sounds Abdomen: distended, other - SIDS with umbilicus hernia Genitourinary/Rectal: other - Muro in place Extremities: other True Smith MD Jul 26, 2020 15:47
[2020-07-26 16:00] VITALS: BP 110/65
--- NOTE | 2020-07-26 16:24 | Cardiology Report ---
APPROVED REPORT EKG Measurement Heart [id number] MA [id number] [id number] <Conclusion> Sinus tachycardia Otherwise normal ECG
[2020-07-26] MEDS: cefTRIAXone 1 GM in D5W 55 ML IVPB SCH (16:42)
--- NOTE | 2020-07-26 17:30 | Consultation ---
DATE OF CONSULTATION: 07/26/2020 INFECTIOUS DISEASES CONSULTATION CONSULTING PHYSICIAN: Alfredo Soriano M.D. PRIMARY ATTENDING PHYSICIAN: Guille Story M.D. REASON FOR CONSULTATION: Acute pancreatitis, cirrhosis with ascites. HISTORY OF PRESENT ILLNESS: This is a 45-year-old male admitted yesterday complaining of increasing abdominal distention and epigastric pain. He has history of cirrhosis. The patient was found to have ascites and had paracentesis yesterday, 6 liters of fluid removed. PAST MEDICAL HISTORY: Pancreatitis, alcoholic cirrhosis, pancytopenia. ALLERGIES: No known drug allergies. MEDICATIONS: Getting IV iron, Remeron, Aldactone, rifaximin, lactulose, thiamine, lorazepam, Zofran, Tylenol, ceftriaxone. SOCIAL HISTORY: Homeless, lives in car, single. Denies smoking and drug abuse. States he has not drink for 40 days. REVIEW OF SYSTEMS: Denies any fever or chills. No coughing. No shortness of breath. No nausea. No vomiting. Has abdominal distention. No problem passing urine. PHYSICAL EXAMINATION: VITAL SIGNS: Temperature 97.9, pulse is 77, blood pressure 110/71. GENERAL APPEARANCE: No acute distress. HEAD AND NECK: Slightly whitish tongue. HEART: Normal rate. LUNGS: Clear. ABDOMEN: Distended with ascites. Had big umbilical hernia. EXTREMITIES: No edema NEUROLOGIC: Awake, alert, oriented x3. LABORATORY AND DIAGNOSTIC DATA: Sodium 123, potassium 3.7, chloride 95, bicarb 18, BUN 17, creatinine 1, glucose is 131. Bilirubin is 1.1. Ammonia is 82. Lipase level is 1068. AST 84, ALT 39, alkaline phosphatase is 142. Albumin is 1.8. IMPRESSION: 1. Acute pancreatitis, likely alcoholic. 2. Alcoholic cirrhosis with ascites. 3. Anemia and thrombocytopenia. 4. Hyponatremia. RECOMMENDATIONS: Continue ceftriaxone. The patient is also getting Lactulose and rifaximin. If the patient remains stable, we will stop ceftriaxone. At the end of my exam, I thank Dr. Story for involving me in the care of this patient. Alfredo Soriano M.D. DR: JAKOB Chaudhary: 07/26/2020 12:37 JOB#: [id number] CC: RAQUEL
[2020-07-26] MEDS: LORazepam 0.5mg tab ORAL PRN (17:40)
[2020-07-26] MEDS: Lactulose 20gm/30ml UDC ORAL SCH (17:40)
--- NOTE | 2020-07-26 19:11 | NUR ---
NURSE HAND-OFF: Important Events on Shift: D/c FREDO muñoz consult, Patient Status: stable Diet: clear liquid Pending Orders: n/a Pending Results/Labs:OB stool Pending MD notification:n/a Latest Vital Signs: Temperature 97.3 , Pulse 84 , B/P 112 /70 , Respiratory Rate 20 , O2 SAT 100 , Room Air, O2 Flow Rate . Vital Sign Comment: stable Latest Taylor Fall Score: 30 Fall Risk: Medium Risk Safety Measures: Call light Within Reach, Bed Alarm Zone 1, Side Rails Side Rails x2, Bed position Low and Locked. Fall Precautions: Patient Fall Education Report given to JENNIFER Sutherland.
--- NOTE | 2020-07-26 19:21 | NUR ---
NURSE NOTES: Received report from sugey fragoso. patient on bed, asleep. on room air. no sob. with iv line on the right ac running nacl 3% 500 ml @ 30 ml x1 due to na level of 123. clear liquid diet. no facial grimacing noted or moaning.per sugey fragoso, " muñoz dc'd per dr. salvador's order". intake of 1200 ml and 800ml of output. occult stool specimen collected, pending results. bed locked and in lowest position. call light and light button within easy reach. will continue plan of care
[2020-07-26 20:00] VITALS: BP 100/71
[2020-07-26] MEDS ORDERED: Iron Sucrose 100 MG in NS 55 ML IVPB SCH (21:00)
--- NOTE | 2020-07-26 22:30 | History and Physical Report ---
DATE OF ADMISSION: 07/25/2020 HISTORY OF PRESENT ILLNESS: Patient comes in because of history of abdominal pain. Patient has ventral hernia. Has tense ascites. Patient also has alcoholic cirrhosis. Patient had 6.2 liters removed from paracentesis done on the floor. Patient admitted for ascites, tense abdomen, hepatic encephalopathy. Has alcoholic cirrhosis. Came with worsening abdominal pain. Lipase was extremity elevated. Patient also admitted for hyponatremia, hypokalemia as well. Admitted for those reasons. Patient complains of abdominal pain. Denies nausea, vomiting, or diarrhea. Denies GI bleeding. Denies shortness of breath. Denies fever or chills. PAST MEDICAL HISTORY: Alcoholic cirrhosis, hypertension, ventral hernia. PAST SURGICAL HISTORY: Metal in the back after a construction injury. FAMILY HISTORY: Noncontributory. SOCIAL HISTORY: He has history of alcohol abuse. Denies history of drug abuse. Denies history of smoking. MEDICATIONS: None. REVIEW OF SYSTEMS: HEENT: Denies headaches. RESPIRATORY: Denies shortness of breath. Denies cough. CARDIOVASCULAR: Denies chest pain or orthopnea. GASTROINTESTINAL: Reports severe abdominal pain for 4 days. Denies diarrhea. Denies rectal bleeding. Denies melena. EXTREMITIES: Denies pain in lower extremities. CENTRAL NERVOUS SYSTEM: Feels weak. Denies change in speech pattern. PHYSICAL EXAMINATION: VITAL SIGNS: Temperature 97.5, pulse is 77, blood pressure 110/71. GENERAL: Patient is slightly jaundiced. HEENT: PERRLA. NECK: Supple. No lymphadenopathy. CHEST: Clear to auscultation. CARDIOVASCULAR: Regular rate and rhythm. No murmurs or extra sounds. GASTROINTESTINAL: Distended. Ventral hernia. Positive bowel sounds. Abdomen is tense after the 6 L removed from the paracentesis. EXTREMITIES: 1+ edema. NEUROLOGIC: Has generalized weakness. Oriented x2. He is able to move all extremities. Dorsalis pedis pulses present. LABORATORY DATA: WBC of 4.8, hemoglobin 9, platelets of 105. Sodium 120, potassium 3.3, BUN of 17, creatinine of 1, glucose of 193. ASSESSMENT AND PLAN: Tense ascites, alcoholic cirrhosis, hyponatremia, hypokalemia, status post paracenteses of 6.2 liters removed, and pancreatitis from the alcohol as well. I have consulted Dr. Smith, Dr. Alfredo Soriano, Dr. Cohen, Dr. Naik, and Dr. Morrell for anxiety, agitation as well as for pain management as well as for cirrhosis management as well as to rule out SBP. Antibiotics per Dr. Alfredo Soriano as well as for hyponatremia management per Dr. Smith. Guille Story M.D. DR: CECILIA JOB#: [id number] CC:
[2020-07-27] VITALS: BP 108/75
--- NOTE | 2020-07-27 | NUR ---
NURSE NOTES: PATIENT IS RESTLESS; WANTS TO WEAR HIS STREET CLOTHES AND LEAVE. TRIES GET UP ON BED. EXPLAINED THE NEED TO STAY ON THE HOSPITAL. ATIVAN GIVEN ORDERED
[2020-07-27] MEDS: LORazepam 0.5mg tab ORAL PRN (00:07)
--- NOTE | 2020-07-27 00:17 | Psych Consult Progress Note ---
Psychiatry Progress Note Psychiatry Progress Note Medications Current Medications Medications (Trade) Dose Ordered Sig/Desirae Route PRN Reason Start Time Stop Time Status Last Admin Dose Admin Acetaminophen (Tylenol) 500 mg Q4H PRN ORAL For Pain 07/25/20 17:15 08/24/20 17:14 07/26/20 08:18 Ceftriaxone Sodium 1 gm/ Dextrose 55 ml @ 110 mls/hr Q24H IVPB 07/25/20 17:00 08/01/20 16:59 07/26/20 16:42 Folic Acid (Folate) 1 mg DAILY ORAL 07/26/20 09:00 08/25/20 08:59 07/26/20 08:18 Iohexol (OMNIPAQUE-300 100ml) 100 ml NOW PRN INJ Radiology Procedure 07/25/20 13:30 07/27/20 13:29 Iron Sucrose 100 mg/Sodium Chloride 60 ml @ 240 mls/hr BEDTIME IVPB 07/26/20 21:00 07/30/20 21:14 07/26/20 20:32 Lactulose (Cephulac) 20 gm THREE TIMES A DAY ORAL 07/26/20 18:00 08/25/20 08:59 07/26/20 17:40 Lorazepam (Ativan) 2 mg Q2H PRN ORAL For Anxiety 07/26/20 00:45 08/02/20 00:44 07/27/20 00:07 Mirtazapine (Remeron) 15 mg BEDTIME ORAL 07/26/20 21:00 10/24/20 20:59 07/26/20 20:32 Ondansetron HCl (Zofran) 4 mg Q6H PRN IVP Nausea & Vomiting 07/25/20 19:00 08/24/20 18:59 07/25/20 19:29 Rifaximin (Xifaxan) 550 mg EVERY 12 HOURS ORAL 07/26/20 09:00 08/02/20 08:59 07/26/20 20:32 Spironolactone (Aldactone) 50 mg DAILY ORAL 07/26/20 09:00 08/25/20 08:59 07/26/20 08:25 Thiamine HCl (Vitamin B1) 100 mg DAILY ORAL 07/26/20 09:00 08/25/20 08:59 07/26/20 08:17 Neurological/Psychiatric: Reports: anxiety, depressed, emotional problems Allergies: Coded Allergies: No Known Allergies (Unverified , 05/24/20) Objective Data Height (Feet): 5 Height (Inches): 2.00 Weight (Pounds): 175 General Appearance: no apparent distress Additional Comments: alert and oriented times self, place, and situation. Mood is anxious. Affect is blunted. Congruent with mood. Thought process is concrete. Thought content, no suicidal or homicidal ideation. Cognition is intact. Insight and judgment is fair. A Assessment/Plan Assessment/Plan: SSESSMENT: [place] I Alcohol dependence. Anxiety disorder. Insomnia. [place] II Deferred. [place] III As above. [place] IV mod [place] V 50. PLAN: 1. We will start the patient on Ativan p.r.n. 2. Thiamine. 3. Folate. 4. Remeron. Allison Naik MD Jul 27, 2020 00:17
[2020-07-27] MEDS: Acetaminophen 500mg (ES) tab ORAL PRN (02:57)
[2020-07-27 04:00] VITALS: BP 110/71
[2020-07-27 06:19] LABS: HEMATOCRIT 26.6 % (42.0-52.0); HEMOGLOBIN 9.1 G/DL (14.2-18.0); MEAN CORPUSCULAR VOLUME 86 FL (80-99); PLATELET COUNT 99 K/UL (150-450); RED BLOOD COUNT 3.09 M/UL (4.70-6.10); RED CELL DISTRIBUTION WIDTH 15.2 % (11.6-14.8)
--- NOTE | 2020-07-27 06:23 | NUR ---
NURSE HAND-OFF: Important Events on Shift: EPISODES OF ANXIETY, SAFETY Patient Status: STABLE Diet: CLEAR LIQUID DIET Pending Orders: Pending Results/Labs:PENDING OCCULT BLOOD STOOL RESULT Pending MD notification: Latest Vital Signs: Temperature 98.2 , Pulse 90 , B/P 110 /71 , Respiratory Rate 18 , O2 SAT 97 , Room Air, O2 Flow Rate . Vital Sign Comment: Latest Taylor Fall Score: 30 Fall Risk: Medium Risk Safety Measures: Call light Within Reach, Bed Alarm Zone 1, Side Rails Side Rails x2, Bed position Low and Locked. Fall Precautions: Patient Fall Education
[2020-07-27 06:25] LABS: INR 1.4 (0.9-1.1)
[2020-07-27 06:48] LABS: ALANINE AMINOTRANSFERASE 32 U/L (12-78); ALBUMIN 1.6 G/DL (3.4-5.0); ALBUMIN/GLOBULIN RATIO 0.3 (1.0-2.7); ALKALINE PHOSPHATASE 126 U/L (46-116); AMYLASE 100 U/L (25-115); ANION GAP 10 mmol/L (5-15); ASPARTATE AMINO TRANSFERASE 64 U/L (15-37); BILIRUBIN,TOTAL 1.2 MG/DL (0.2-1.0); BLOOD UREA NITROGEN 13 mg/dL (7-18); CALCIUM 7.4 MG/DL (8.5-10.1); CARBON DIOXIDE 18 MMOL/L (21-32); CHLORIDE 97 MMOL/L (98-107); CREATININE 0.9 MG/DL (0.55-1.30); PHOSPHORUS 3.4 MG/DL (2.5-4.9); POTASSIUM 3.6 MMOL/L (3.5-5.1); SODIUM 125 MMOL/L (136-145)
[2020-07-27 06:57] LABS: AMMONIA 76 umol/L (11-32); BILIRUBIN,DIRECT 0.6 MG/DL (0.0-0.3)
--- NOTE | 2020-07-27 07:04 | NUR ---
HAND-OFF: Report given to sugey holly.
--- NOTE | 2020-07-27 07:56 | NUR ---
NURSE NOTES received report from JENNIFER Arellano. patient in bed. alert oriented. verbally responsive. no respiratory distress noted. no pain at this time. ambulatory. no skin issue. refused to change hospital gown. patient in street clothes. refused to show IV site and check lung sound. bowel sound at this time. bed in the lowest position and locked. call light within reach. alarm on. will continue to provide plan of care.
[2020-07-27 08:00] VITALS: BP 114/77
[2020-07-27] MEDS: Thiamine 100mg tab ORAL SCH (08:31)
[2020-07-27] MEDS: Spironolactone 50mg tab ORAL SCH (08:31)
[2020-07-27] MEDS: Lactulose 20gm/30ml UDC ORAL SCH (08:31)
--- NOTE | 2020-07-27 08:37 | General Progress Note ---
Subjective Date patient seen: Jul 27, 2020 Time patient seen: 07:30 - am Constitutional: Reports: weakness HEENT: Reports: no symptoms Cardiovascular: Reports: no symptoms Respiratory: Reports: no symptoms Gastrointestinal/Abdominal: Reports: abdomen distended Genitourinary: Reports: no symptoms Neurologic/Psychiatric: Reports: no symptoms Endocrine: Reports: no symptoms Hematologic/Lymphatic: Reports: no symptoms Allergies: Coded Allergies: No Known Allergies (Unverified , 05/24/20) Subjective HPI: This is a 45 y/o male seen on the med/surg floor of [facility] [place] and reports that his pain has been stable on the medication. No new complaints at this time. Objective Last 24 Hour Vital Signs Date Time Temp Pulse Resp B/P (MAP) Pulse Ox O2 Delivery O2 Flow Rate FiO2 07/27/20 08:00 98.9 98 19 114/77 (89) 100 07/27/20 04:00 98.2 90 18 110/71 (84) 97 07/27/20 03:27 98.5 07/27/20 00:37 83 20 110/73 96 07/27/20 00:07 87 20 108/75 96 07/27/20 00:00 98.5 87 20 108/75 (86) 98 07/26/20 21:00 Room Air 07/26/20 20:00 97.8 80 20 100/71 (81) 98 07/26/20 18:10 84 20 112/70 100 07/26/20 17:40 84 20 110/65 100 07/26/20 16:00 97.3 84 20 110/65 (80) 100 07/26/20 12:00 97.5 77 20 110/71 (84) 100 07/26/20 09:00 Room Air Intake and Output 07/26/20 07/27/20 19:00 07:00 Intake Total 1200 ml 400 ml Output Total 800 ml 600 ml Balance 400 ml -200 ml Intake Oral 1200 ml 400 ml Output Urine Total 800 ml 600 ml # Bowel Movements 2 Laboratory Tests 07/26/20 10:30: Stool Occult Blood [Pending] 07/27/20 05:45: White Blood Count 4.0L, Red Blood Count 3.09L, Hemoglobin 9.1L, Hematocrit 26.6L , Mean Corpuscular Volume 86, Mean Corpuscular Hemoglobin 29.3, Mean Corpuscular Hemoglobin Concent 34.1, Red Cell Distribution Width 15.2H, Platelet Count 99L, Mean Platelet Volume 6.3L, Neutrophils (%) (Auto) , Lymphocytes (%) (Auto) , Monocytes (%) (Auto) , Eosinophils (%) (Auto) , Basophils (%) (Auto) , Neutrophils % (Manual) [Pending], Lymphocytes % (Manual) [Pending], Platelet Estimate [Pending], Platelet Morphology [Pending], Prothrombin Time 14.8H, Prothromb Time International Ratio 1.4H, Activated Partial Thromboplast Time 39H , Sodium Level 125L, Potassium Level 3.6, Chloride Level 97L, Carbon Dioxide Level 18L, Anion Gap 10, Blood Urea Nitrogen 13, Creatinine 0.9, Estimat Glomerular Filtration Rate > 60, Glucose Level 81, Uric Acid 4.6, Calcium Level 7.4L, Phosphorus Level 3.4, Magnesium Level 1.8, Total Bilirubin 1.2H, Direct Bilirubin 0.6H, Aspartate Amino Transf (AST/SGOT) 64H, Alanine Aminotransferase (ALT/SGPT) 32, Alkaline Phosphatase 126H, Ammonia 76H, C-Reactive Protein, Quantitative 4.7H, Pro-B-Type Natriuretic Peptide 181H, Total Protein 6.2L, Albumin 1.6L, Globulin 4.6, Albumin/Globulin Ratio 0.3L, Amylase Level 100, Lipase 1247H Height (Feet): 5 Height (Inches): 2.00 Weight (Pounds): 175 General Appearance: no apparent distress, alert EENT: PERRL/EOMI Neck: non-tender, normal alignment Cardiovascular: normal rate, regular rhythm Respiratory/Chest: decreased breath sounds Abdomen: tender Extremities: non-tender Edema: trace edema Neurologic: alert, responsive Skin: normal pigmentation Assessment/Plan Assessment/Plan: (1) Abdominal pain (2) Pancreatitis Patient to be continued on Tylenol D/w Dr. Morrell and he concurred. Gallito Cao Jul 27, 2020 08:37
[2020-07-27] MEDS ORDERED: Tamsulosin 0.4mg cap ORAL SCH (09:00)
[2020-07-27] MEDS ORDERED: NaCl 3% 500ml 250 ML IV SCH (10:00)
--- NOTE | 2020-07-27 10:23 | General Progress Note ---
Subjective ROS Limited/Unobtainable: No Allergies: Coded Allergies: No Known Allergies (Unverified , 05/24/20) Objective Last 24 Hour Vital Signs Date Time Temp Pulse Resp B/P (MAP) Pulse Ox O2 Delivery O2 Flow Rate FiO2 07/27/20 08:00 98.9 98 19 114/77 (89) 100 07/27/20 04:00 98.2 90 18 110/71 (84) 97 07/27/20 03:27 98.5 07/27/20 00:37 83 20 110/73 96 07/27/20 00:07 87 20 108/75 96 07/27/20 00:00 98.5 87 20 108/75 (86) 98 07/26/20 21:00 Room Air 07/26/20 20:00 97.8 80 20 100/71 (81) 98 07/26/20 18:10 84 20 112/70 100 07/26/20 17:40 84 20 110/65 100 07/26/20 16:00 97.3 84 20 110/65 (80) 100 07/26/20 12:00 97.5 77 20 110/71 (84) 100 Intake and Output 07/26/20 07/27/20 19:00 07:00 Intake Total 1200 ml 400 ml Output Total 800 ml 600 ml Balance 400 ml -200 ml Intake Oral 1200 ml 400 ml Output Urine Total 800 ml 600 ml # Bowel Movements 2 Laboratory Tests 07/26/20 10:30: Stool Occult Blood [Pending] 07/27/20 05:45: White Blood Count 4.0L, Red Blood Count 3.09L, Hemoglobin 9.1L, Hematocrit 26.6L , Mean Corpuscular Volume 86, Mean Corpuscular Hemoglobin 29.3, Mean Corpuscular Hemoglobin Concent 34.1, Red Cell Distribution Width 15.2H, Platelet Count 99L, Mean Platelet Volume 6.3L, Neutrophils (%) (Auto) , Lymphocytes (%) (Auto) , Monocytes (%) (Auto) , Eosinophils (%) (Auto) , Basophils (%) (Auto) , Differential Total Cells Counted 100, Neutrophils % (Manual) 82H, Lymphocytes % (Manual) 7L, Monocytes % (Manual) 8, Eosinophils % (Manual) 3, Basophils % (Manual) 0, Band Neutrophils 0, Platelet Estimate DecreasedL, Platelet Morphology Normal, Anisocytosis 1+, Prothrombin Time 14.8H, Prothromb Time International Ratio 1.4H, Activated Partial Thromboplast Time 39H, Sodium Level 125L, Potassium Level 3.6, Chloride Level 97L, Carbon Dioxide Level 18L, Anion Gap 10, Blood Urea Nitrogen 13, Creatinine 0.9, Estimat Glomerular Filtration Rate > 60, Glucose Level 81, Uric Acid 4.6, Calcium Level 7.4L, Phosphorus Level 3.4, Magnesium Level 1.8, Total Bilirubin 1.2H, Direct Bilirubin 0.6H, Aspartate Amino Transf (AST/SGOT) 64H, Alanine Aminotransferase (ALT/SGPT) 32, Alkaline Phosphatase 126H, Ammonia 76H, C-Reactive Protein, Quantitative 4.7H, Pro-B-Type Natriuretic Peptide 181H, Total Protein 6.2L, Albumin 1.6L, Globulin 4.6, Albumin/Globulin Ratio 0.3L, Amylase Level 100, Lipase 1247H Height (Feet): 5 Height (Inches): 2.00 Weight (Pounds): 175 General Appearance: no apparent distress EENT: normal ENT inspection Neck: supple Cardiovascular: normal rate Respiratory/Chest: decreased breath sounds Abdomen: normal bowel sounds, distended Extremities: non-tender Assessment/Plan Assessment/Plan: cirrhosis ascites>> s/p 6 lit paracentesis iron def anemia folic acid def hypo natremia thrombocytopenia portal hypertension elevated ammonia elevated lipase iv iron folic acid increase aldactone to 100 hold lasix HL iv advance diet to 2 gm diet lactulose and xifaxan may need EGD repeat labs Montana Cohen MD Jul 27, 2020 10:23
--- NOTE | 2020-07-27 11:00 | Infectious Diseases Prog Note ---
Assessment/Plan Assessment/Plan IMPRESSION: 1. Acute pancreatitis, likely alcoholic. 2. Alcoholic cirrhosis with ascites. 3. Anemia and thrombocytopenia. 4. Hyponatremia. RECOMMENDATIONS: Continue ceftriaxone. Continue Lactulose and rifaximin. Subjective ROS Limited/Unobtainable: No Constitutional: Reports: no symptoms Respiratory: Reports: no symptoms Gastrointestinal/Abdominal: Reports: no symptoms Genitourinary: Reports: no symptoms Allergies: Coded Allergies: No Known Allergies (Unverified , 05/24/20) Objective Last 24 Hour Vital Signs Date Time Temp Pulse Resp B/P (MAP) Pulse Ox O2 Delivery O2 Flow Rate FiO2 07/27/20 08:00 98.9 98 19 114/77 (89) 100 07/27/20 04:00 98.2 90 18 110/71 (84) 97 07/27/20 03:27 98.5 07/27/20 00:37 83 20 110/73 96 07/27/20 00:07 87 20 108/75 96 07/27/20 00:00 98.5 87 20 108/75 (86) 98 07/26/20 21:00 Room Air 07/26/20 20:00 97.8 80 20 100/71 (81) 98 07/26/20 18:10 84 20 112/70 100 07/26/20 17:40 84 20 110/65 100 07/26/20 16:00 97.3 84 20 110/65 (80) 100 07/26/20 12:00 97.5 77 20 110/71 (84) 100 Height (Feet): 5 Height (Inches): 2.00 Weight (Pounds): 175 HEENT: mucous membranes moist Respiratory/Chest: lungs clear Cardiovascular: normal rate Abdomen: soft, non tender, other - distended with ascites Laboratory Tests Test 07/27/20 05:45 07/27/20 10:25 White Blood Count 4.0 K/UL (4.8-10.8) L Red Blood Count 3.09 M/UL (4.70-6.10) L Hemoglobin 9.1 G/DL (14.2-18.0) L Hematocrit 26.6 % (42.0-52.0) L Mean Corpuscular Volume 86 FL (80-99) Mean Corpuscular Hemoglobin 29.3 PG (27.0-31.0) Mean Corpuscular Hemoglobin Concent 34.1 G/DL (32.0-36.0) Red Cell Distribution Width 15.2 % (11.6-14.8) H Platelet Count 99 K/UL (150-450) L Mean Platelet Volume 6.3 FL (6.5-10.1) L Neutrophils (%) (Auto) % (45.0-75.0) Lymphocytes (%) (Auto) % (20.0-45.0) Monocytes (%) (Auto) % (1.0-10.0) Eosinophils (%) (Auto) % (0.0-3.0) Basophils (%) (Auto) % (0.0-2.0) Differential Total Cells Counted 100 Neutrophils % (Manual) 82 % (45-75) H Lymphocytes % (Manual) 7 % (20-45) L Monocytes % (Manual) 8 % (1-10) Eosinophils % (Manual) 3 % (0-3) Basophils % (Manual) 0 % (0-2) Band Neutrophils 0 % (0-8) Platelet Estimate Decreased L Platelet Morphology Normal Anisocytosis 1+ Prothrombin Time 14.8 SEC (9.30-11.50) H Prothromb Time International Ratio 1.4 (0.9-1.1) H Activated Partial Thromboplast Time 39 SEC (23-33) H Sodium Level 125 MMOL/L (136-145) L Potassium Level 3.6 MMOL/L (3.5-5.1) Chloride Level 97 MMOL/L (98-107) L Carbon Dioxide Level 18 MMOL/L (21-32) L Anion Gap 10 mmol/L (5-15) Blood Urea Nitrogen 13 mg/dL (7-18) Creatinine 0.9 MG/DL (0.55-1.30) Estimat Glomerular Filtration Rate > 60 mL/min (>60) Glucose Level 81 MG/DL (74-106) Uric Acid 4.6 MG/DL (2.6-7.2) Calcium Level 7.4 MG/DL (8.5-10.1) L Phosphorus Level 3.4 MG/DL (2.5-4.9) Magnesium Level 1.8 MG/DL (1.8-2.4) Total Bilirubin 1.2 MG/DL (0.2-1.0) H Direct Bilirubin 0.6 MG/DL (0.0-0.3) H Aspartate Amino Transf (AST/SGOT) 64 U/L (15-37) H Alanine Aminotransferase (ALT/SGPT) 32 U/L (12-78) Alkaline Phosphatase 126 U/L (46-116) H Ammonia 76 umol/L (11-32) H C-Reactive Protein, Quantitative 4.7 mg/dL (0.00-0.90) H Pro-B-Type Natriuretic Peptide 181 pg/mL (0-125) H Total Protein 6.2 G/DL (6.4-8.2) L Albumin 1.6 G/DL (3.4-5.0) L Globulin 4.6 g/dL Albumin/Globulin Ratio 0.3 (1.0-2.7) L Amylase Level 100 U/L (25-115) Lipase 1247 U/L (73-393) H Urine Random Sodium < 20 mmol/L (20-110) L Current Medications Medications (Trade) Dose Ordered Sig/Desirae Route PRN Reason Start Time Stop Time Status Last Admin Dose Admin Acetaminophen (Tylenol) 500 mg Q4H PRN ORAL For Pain 07/25/20 17:15 08/24/20 17:14 07/27/20 02:57 Ceftriaxone Sodium 1 gm/ Dextrose 55 ml @ 110 mls/hr Q24H IVPB 07/25/20 17:00 08/01/20 16:59 07/26/20 16:42 Folic Acid (Folate) 1 mg DAILY ORAL 07/26/20 09:00 08/25/20 08:59 07/27/20 08:31 Iohexol (OMNIPAQUE-300 100ml) 100 ml NOW PRN INJ Radiology Procedure 07/25/20 13:30 07/27/20 13:29 Iron Sucrose 100 mg/Sodium Chloride 60 ml @ 240 mls/hr BEDTIME IVPB 07/26/20 21:00 07/30/20 21:14 07/26/20 20:32 Lactulose (Cephulac) 20 gm THREE TIMES A DAY ORAL 07/26/20 18:00 08/25/20 08:59 07/27/20 08:31 Lorazepam (Ativan) 2 mg Q2H PRN ORAL For Anxiety 07/26/20 00:45 08/02/20 00:44 07/27/20 00:07 Mirtazapine (Remeron) 15 mg BEDTIME ORAL 07/26/20 21:00 10/24/20 20:59 07/26/20 20:32 Ondansetron HCl (Zofran) 4 mg Q6H PRN IVP Nausea & Vomiting 07/25/20 19:00 08/24/20 18:59 07/25/20 19:29 Rifaximin (Xifaxan) 550 mg EVERY 12 HOURS ORAL 07/26/20 09:00 08/02/20 08:59 07/27/20 08:31 Sodium Chloride 250 ml @ 30 mls/hr ONCE IV 07/27/20 10:00 07/27/20 11:00 07/27/20 10:21 Spironolactone (Aldactone) 100 mg DAILY ORAL 07/28/20 09:00 08/25/20 08:59 Tamsulosin HCl (Flomax) 0.4 mg BID ORAL 07/27/20 09:00 08/26/20 08:59 07/27/20 09:20 Thiamine HCl (Vitamin B1) 100 mg DAILY ORAL 07/26/20 09:00 08/25/20 08:59 07/27/20 08:31 Alfredo Soriano MD Jul 27, 2020 11:00
--- NOTE | 2020-07-27 12:19 | Nephrology Progress Note ---
Assessment/Plan Problem List: (1) Hyponatremia (2) Alcoholic cirrhosis of liver with ascites (3) Pancreatitis (4) Elevated lipase (5) Anemia Assessment: Low iron, low folic acid Assessment Hyponatremia Hypokalemia Anemia Hypoalbuminemia High lipase Massive ascites Cirrhosis, portal hypertension Plan July 27: Patient dressed up sitting up in bed. Receiving 3% saline. Not in any distress. Labs and medication reviewed. Continue to monitor electrolytes, lipase, LFTs. Continue per consultants. Previously: Discontinue Muro catheter per patient's request Slow saline hydration Potassium supplement as needed Anemia work-up noted: Folic acid, iron supplement Monitor intake and output Per consultants Subjective ROS Limited/Unobtainable: No Constitutional: Reports: malaise Objective Objective Last 24 Hour Vital Signs Date Time Temp Pulse Resp B/P (MAP) Pulse Ox O2 Delivery O2 Flow Rate FiO2 07/27/20 09:00 Room Air 07/27/20 08:00 98.9 98 19 114/77 (89) 100 07/27/20 04:00 98.2 90 18 110/71 (84) 97 07/27/20 03:27 98.5 07/27/20 00:37 83 20 110/73 96 07/27/20 00:07 87 20 108/75 96 07/27/20 00:00 98.5 87 20 108/75 (86) 98 07/26/20 21:00 Room Air 07/26/20 20:00 97.8 80 20 100/71 (81) 98 07/26/20 18:10 84 20 112/70 100 07/26/20 17:40 84 20 110/65 100 07/26/20 16:00 97.3 84 20 110/65 (80) 100 Intake and Output 07/26/20 07/27/20 19:00 07:00 Intake Total 1200 ml 400 ml Output Total 800 ml 600 ml Balance 400 ml -200 ml Intake Oral 1200 ml 400 ml Output Urine Total 800 ml 600 ml # Bowel Movements 2 Current Medications Medications (Trade) Dose Ordered Sig/Desirae Route PRN Reason Start Time Stop Time Status Last Admin Dose Admin Acetaminophen (Tylenol) 500 mg Q4H PRN ORAL For Pain 07/25/20 17:15 08/24/20 17:14 07/27/20 02:57 Ceftriaxone Sodium 1 gm/ Dextrose 55 ml @ 110 mls/hr Q24H IVPB 07/25/20 17:00 08/01/20 16:59 07/26/20 16:42 Folic Acid (Folate) 1 mg DAILY ORAL 07/26/20 09:00 08/25/20 08:59 07/27/20 08:31 Iohexol (OMNIPAQUE-300 100ml) 100 ml NOW PRN INJ Radiology Procedure 07/25/20 13:30 07/27/20 13:29 Iron Sucrose 100 mg/Sodium Chloride 60 ml @ 240 mls/hr BEDTIME IVPB 07/26/20 21:00 07/30/20 21:14 07/26/20 20:32 Lactulose (Cephulac) 20 gm THREE TIMES A DAY ORAL 07/26/20 18:00 08/25/20 08:59 07/27/20 08:31 Lorazepam (Ativan) 2 mg Q2H PRN ORAL For Anxiety 07/26/20 00:45 08/02/20 00:44 07/27/20 00:07 Mirtazapine (Remeron) 15 mg BEDTIME ORAL 07/26/20 21:00 10/24/20 20:59 07/26/20 20:32 Ondansetron HCl (Zofran) 4 mg Q6H PRN IVP Nausea & Vomiting 07/25/20 19:00 08/24/20 18:59 07/25/20 19:29 Rifaximin (Xifaxan) 550 mg EVERY 12 HOURS ORAL 07/26/20 09:00 08/02/20 08:59 07/27/20 08:31 Spironolactone (Aldactone) 100 mg DAILY ORAL 07/28/20 09:00 08/25/20 08:59 Tamsulosin HCl (Flomax) 0.4 mg BID ORAL 07/27/20 09:00 08/26/20 08:59 07/27/20 09:20 Thiamine HCl (Vitamin B1) 100 mg DAILY ORAL 07/26/20 09:00 08/25/20 08:59 07/27/20 08:31 Laboratory Tests 07/27/20 05:45: White Blood Count 4.0L, Red Blood Count 3.09L, Hemoglobin 9.1L, Hematocrit 26.6L , Mean Corpuscular Volume 86, Mean Corpuscular Hemoglobin 29.3, Mean Corpuscular Hemoglobin Concent 34.1, Red Cell Distribution Width 15.2H, Platelet Count 99L, Mean Platelet Volume 6.3L, Neutrophils (%) (Auto) , Lymphocytes (%) (Auto) , Monocytes (%) (Auto) , Eosinophils (%) (Auto) , Basophils (%) (Auto) , Differential Total Cells Counted 100, Neutrophils % (Manual) 82H, Lymphocytes % (Manual) 7L, Monocytes % (Manual) 8, Eosinophils % (Manual) 3, Basophils % (Manual) 0, Band Neutrophils 0, Platelet Estimate DecreasedL, Platelet Morphology Normal, Anisocytosis 1+, Prothrombin Time 14.8H, Prothromb Time International Ratio 1.4H, Activated Partial Thromboplast Time 39H, Sodium Level 125L, Potassium Level 3.6, Chloride Level 97L, Carbon Dioxide Level 18L, Anion Gap 10, Blood Urea Nitrogen 13, Creatinine 0.9, Estimat Glomerular Filtration Rate > 60, Glucose Level 81, Uric Acid 4.6, Calcium Level 7.4L, Phosphorus Level 3.4, Magnesium Level 1.8, Total Bilirubin 1.2H, Direct Bilirubin 0.6H, Aspartate Amino Transf (AST/SGOT) 64H, Alanine Aminotransferase (ALT/SGPT) 32, Alkaline Phosphatase 126H, Ammonia 76H, C-Reactive Protein, Quantitative 4.7H, Pro-B-Type Natriuretic Peptide 181H, Total Protein 6.2L, Albumin 1.6L, Globulin 4.6, Albu min/Globulin Ratio 0.3L, Amylase Level 100, Lipase 1247H 07/27/20 10:25: Urine Random Sodium < 20L Height (Feet): 5 Height (Inches): 2.00 Weight (Pounds): 175 General Appearance: no apparent distress, confused Respiratory/Chest: decreased breath sounds Abdomen: distended, other - Ascites True Smith MD Jul 27, 2020 12:19
--- NOTE | 2020-07-27 12:30 | NUR ---
NURSE NOTES: patient left signed AMA. explained risks and benefits. patient said that he feels good and he should move his car where he parked before admission. offered meals and clothes. refused placement offered by social work case manager. patient said he can take care of self and he stays in the car. alert. orientedx4, verbally responsive. no respiratory distress noted. no pain at this time. removed IV and ID band. patient knows how to get the place where his car was parked.
--- NOTE | 2020-07-27 23:08 | Psych Consult Progress Note ---
Psychiatry Progress Note Psychiatry Progress Note Neurological/Psychiatric: Reports: anxiety, depressed, emotional problems Allergies: Coded Allergies: No Known Allergies (Unverified , 05/24/20) Objective Data Height (Feet): 5 Height (Inches): 2.00 Weight (Pounds): 175 General Appearance: no apparent distress, confused Additional Comments: alert and oriented times self, place, and situation. Mood is anxious. Affect is blunted. Congruent with mood. Thought process is concrete. Thought content, no suicidal or homicidal ideation. Cognition is intact. Insight and judgment is fair. A Assessment/Plan Mcintosh I: SSESSMENT: Mcintosh I Alcohol dependence. Anxiety disorder. Insomnia. Mcintosh II Deferred. Mcintosh III As above. Mcintosh IV mod Mcintosh V 50. PLAN: 1. We will start the patient on Ativan p.r.n. 2. Thiamine. 3. Folate. 4. Remeron. Status Narrative SSESSMENT: Mcintosh I Alcohol dependence. Anxiety disorder. Insomnia. Mcintosh II Deferred. Mcintosh III As above. Mcintosh IV mod Mcintosh V 50. PLAN: 1. We will start the patient on Ativan p.r.n. 2. Thiamine. 3. Folate. 4. Remeron. Assessment/Plan: SSESSMENT: Mcintosh I Alcohol dependence. Anxiety disorder. Insomnia. Mcintosh II Deferred. Mcintosh III As above. Mcintosh IV mod Mcintosh V 50. PLAN: 1. We will start the patient on Ativan p.r.n. 2. Thiamine. 3. Folate. 4. Remeron. Allison Naik MD Jul 27, 2020 23:08
[2020-07-28] MEDS ORDERED: Spironolactone 50mg tab ORAL SCH (09:00)
--- NOTE | 2020-07-29 11:11 | Discharge Summary ---
Discharge Summary Discharge Summary _ DATE OF ADMISSION: 07/25/2020 DATE OF DISCHARGE: 07/27/2020 Patient left AGAINST MEDICAL ADVICE REASON FOR ADMISSION: 45 years old male with past medical history of ETOH abuse and alcoholic liver cirrhosis, chronic ascites with abdominal distention , presented with epigastric pain. Patient reported worsening mid epigastric pain along with worsening abdominal distention for the past several days. Pain reported as localized in epigastric area , without radiation and sharp in nature. He denied fever and chills. No chest pain, shortness of breath or palpitations. No back pain. No nausea , vomiting, diarrhea. No dysuria . Upon evaluation patient was tachycardic with heart rate in 110 , otherwise vital signs were stable. Laboratory work-up revealed no leukocytosis ,hemoglobin 9, hematocrit 26.3, platelet count 105. Sodium 120, potassium 3.3. BUN 17, creatinine 1.0. Total bilirubin 1.1, direct bilirubin 0.7. AST 106, ALT 39. Alkaline phosphatase 148. Lipase 1172. Urinalysis revealed +1 , protein, +1 leukocyte esterase , borderline pyuria and no bacteria. CT scan of the abdomen and pelvis revealed evidence of hepatic cirrhosis. Stigmata of portal hypertension, including massive ascites and large esophageal varices. Anasarca. Ascites herniated into the large umbilical hernia as well as into the bilateral inguinal hernias. Urine toxicology screen was negative. In emergency department patient received replacement of potassium, 1 L of normal saline and admitted to telemetry floor . CONSULTANTS: cake wringer Dr. Smith ID specialist Dr. Alfredo Soriano Pain specialist Dr. Morrell GI specialist Dr. Cohen psychiatrist [facility] COURSE: Patient admitted to telemetry floor. Ultrasound guided paracentesis yielded 6.2 L of fluid. Patient was on lactulose and Xifaxan, Ammonia trended down, still elevated 76. Patient initially was on IV fluids. Electrolytes corrected as per cake wringer recommendation. Sodium improved still low 125 , potassium stable 3.6. Diuretics provided with close monitoring of volumes and renal parameters. Initial IVF stopped. Hemoglobin and hematocrit were closely monitored with goal to keep hemoglobin above 7. Anemia work-up was consistent with anemia of iron deficiency and folate deficiency Patient was on folic acid and IV iron. Stool for occult blood was positive. GI specialist recommended EGD . Counts were closely monitored, prior to signing AMA hemoglobin 9.1, hematocrit 26.6, platelet count 99. LFT were closely monitored: AST trended down to 64 . Lipase remain elevated. Pain management was addressed as per pain specialist recommendation Patient started on empiric ceftriaxone as per ID specialist recommendation. Psychiatrist followed. Anxiolytic provided as needed. Reality rotation and supportive therapy provided. Patient was counseled on abstinence from ETOH . On 07/27 patient decided to leave AGAINST MEDICAL ADVICE. The risks and consequences of signing AGAINST MEDICAL ADVICE were discussed with patient in detail. Patient verbalized understanding, nevertheless signed AMA form and left. FINAL DIAGNOSES: Alcoholic cirrhosis Elevated lipase, probably acute alcoholic pancreatitis Massive ascites Status post paracentesis Hepatic encephalopathy Iron deficiency anemia Folic acid deficiency Hyponatremia Hypokalemia Thrombocytopenia Portal hypertension EtOH abuse Alcohol dependency Anxiety disorder Insomnia I have been assigned to dictate discharge summary for this account. I was not involved in the patient's management. Joyce Anderson NP Jul 29, 2020 11:11
== END 2020-07-27 12:25 | disposition left against medical advice (07) | DRG 280 ==
LOC: EMR 12:26 → 4E 12:48 → EDBEDREQ 13:55 → 4E 07-27 04:35
PROC: 0W9G3ZZ Drainage of Peritoneal Cavity, Percutaneous Approach (ICD-10-PCS; principal; 2020-07-25)
DX: K70.31 Alcoholic cirrhosis of liver with ascites (principal); K85.20 Alcohol induced acute pancreatitis without necrosis or infection; E87.1 Hypo-osmolality and hyponatremia; F10.20 Alcohol dependence, uncomplicated; K76.6 Portal hypertension; E87.6 Hypokalemia; D50.9 Iron deficiency anemia, unspecified; K72.90 Hepatic failure, unspecified without coma; F41.9 Anxiety disorder, unspecified; G47.00 Insomnia, unspecified; E53.8 Deficiency of other specified B group vitamins; D69.6 Thrombocytopenia, unspecified; Z59.0 Homelessness
CPT/HCPCS: 36415; 74177; 76942; 80053; 80061; 80307; 81003; 82140; 82150; 82248; 82270; 82607; 82728; 82746; 82977; 83036; 83540; 83550; 83690; 83735; 83880; 83930; 83935; 84100; 84300; 84443; 84550; 85007; 85025; 85610; 85730; 86140; 93005; 96365; 96375; 99285; J2405; J7030

== ENCOUNTER 2020-08-05 12:16 | Emergency (ER) | payer MEDICAID ==
[~2020-08-05] VITALS: Ht 157.5 cm; Wt 86.2 kg
--- NOTE | 2020-08-05 12:18 | NUR ---
ED Nurse Note: Pt not in the waiting room
--- NOTE | 2020-08-05 12:53 | NUR ---
ED Nurse Note: PT walked in to ed for c/o abd pain x 4 days. pt denies any n/n/d. 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
[2020-08-05 12:56] VITALS: BP 110/75
[2020-08-05 13:33] LABS: BASOPHILS % (AUTO) 1.7 % (0.0-2.0); EOSINOPHILS % (AUTO) 0.2 % (0.0-3.0); HEMATOCRIT 28.3 % (42.0-52.0); HEMOGLOBIN 9.4 G/DL (14.2-18.0); LYMPHOCYTES % (AUTO) 8.8 % (20.0-45.0); MEAN CORPUSCULAR VOLUME 92 FL (80-99); MONOCYTES % (AUTO) 5.8 % (1.0-10.0); NEUTROPHILS % (AUTO) 83.6 % (45.0-75.0); PLATELET COUNT 140 K/UL (150-450); RED BLOOD COUNT 3.08 M/UL (4.70-6.10); WHITE BLOOD COUNT 4.4 K/UL (4.8-10.8)
[2020-08-05 13:39] LABS: INR 1.2 (0.9-1.1)
[2020-08-05 13:51] LABS: CALCIUM 6.9 MG/DL (8.5-10.1); CREATININE 1.3 MG/DL (0.55-1.30); POTASSIUM 4.4 MMOL/L (3.5-5.1)
[2020-08-05 13:55] LABS: ALBUMIN 1.8 G/DL (3.4-5.0); ALBUMIN/GLOBULIN RATIO 0.4 (1.0-2.7); BILIRUBIN,TOTAL 0.8 MG/DL (0.2-1.0)
--- NOTE | 2020-08-05 14:52 | NUR ---
ED Nurse Note: rim technician at bedside. paracentesis being done at bedside.
[2020-08-05 14:55] VITALS: BP 129/81
--- NOTE | 2020-08-05 15:09 | NUR ---
ED Nurse Note: report given to Danny Chand RN . endorsed plan of care.
[2020-08-05] MEDS ORDERED: Mylanta II UD 30ml ORAL PRN (15:15)
[2020-08-05] MEDS ORDERED: Albuterol/Ipratropium 3ml neb HHN PRN (15:15)
[2020-08-05] MEDS ORDERED: Miralax 17gm pkt ORAL PRN (15:15)
--- NOTE | 2020-08-05 15:15 | NUR ---
ED Nurse Note: received patient from oprter mayes. patient in bed with no acute distress. patient currently undergoing paracentesis.
[2020-08-05 15:30] VITALS: BP 131/82
[2020-08-05] MEDS ORDERED: Piperacillin/Tazobactam 3.375 GM in NS 110 ML IVPB ONE (15:30)
[2020-08-05] MEDS ORDERED: cefTRIAXone 2 GM in NS 55 ML IVPB SCH (15:30)
--- NOTE | 2020-08-05 15:49 | History and Physical ---
History of Present Illness General Date patient seen: Aug 05, 2020 Reason for Hospitalization: Abdominal Pain Present Illness HPI Mr. Beaulieu is a 45M with PMH of Alcoholic cirrhosis, hypertension, ventral hernia who presents today for tense abdominal ascites. Patient was recently admitted to [facility] for similar presentation in which 6.2L of ascites was removed, however, patient decided to leave AMA. Patient reports since he left his abdomen has slowly grew more tense. There is tenderness to palpation but no guarding or rebound tenderness. Denies fevers, chills, tremors, headaches, sob, chest pain, n/v/d. Denies hx of EGD. No hx of UGIB or hematemesis. He does not take any home medications. He currently lives in his van. He does not have a PCP. He is a former heavy drinker stating that his last drink was over 2 months ago. Denies any drug use. No other recent illnesses or sick contacts. In the ED, patient hemodynamically stable. Has tense ascites. No signs of HE. Will cover for SBP given tenderness on exam. Pending US guided paracentesis. Will send for cultures and analysis. PMH: Alcoholic cirrhosis, hypertension, ventral hernia Sx: Back surgery Fx: denies hx of liver disease Soc: former heavy drinker with last drink 2 months ago, denies smoking or drug use Allergies: Coded Allergies: No Known Allergies (Unverified , 05/24/20) COVID-19 Screening Contact w/high risk pt: No Experienced COVID-19 symptoms?: No Medication History Scheduled Hydrochlorothiazide* (Hydrochlorothiazide*), 25 MG ORAL DAILY Patient History Healthcare decision maker Resuscitation status Advanced Directive on File Review of Systems Constitutional: Denies: no symptoms, see HPI, chills, sweats, fever, malaise, weakness, other Eye: Denies: no symptoms, see HPI, eye pain, blurred vision, tearing, double vision, nose pain, nose congestion, acuity changes, discharge, other ENT: Denies: no symptoms, see HPI, ear pain, ear discharge, nose pain, nose congestion, throat pain, throat swelling, mouth pain, hearing loss, nasal discharge, other Respiratory: Denies: no symptoms, see HPI, cough, orthopnea, shortness of breath, stridor, wheezing, LEMUS, sputum, other Cardiovascular: Denies: no symptoms, see HPI, chest pain, edema, palpitations, syncope, PND, other Gastrointestinal: Reports: abdominal pain; Denies: no symptoms, see HPI, constipation, diarrhea, nausea, vomiting, melena, hematemesis, other Genitourinary: Denies: no symptoms, see HPI, discharge, dysuria, frequency, hematuria, pain, retention, incontinence, urgency, vag bleed/dc, other Musculoskeletal: Denies: no symptoms, see HPI, back pain, gout, joint pain, joint swelling, muscle pain, muscle stiffness, other Skin: Denies: no symptoms, see HPI, rash, change in color, change in hair/nails, dryness, lesions, other Psychiatric: Denies: no symptoms, see HPI, prior hx, anxiety, depressed feelings, emotional problems, SI, HI, hallucinations, other Neurological: Denies: no symptoms, see HPI, headache, numbness, paresthesia, seizure, tingling, tremors, focal weakness, syncope, dizziness, other Endocrine: Denies: no symptoms, see HPI, excessive sweating, flushing, intolerance to temperature, increased thirst, increased urine, unexplained weigh t loss, other Hematologic/Lymphatic: Denies: no symptoms, see HPI, anemia, blood clots, easy bleeding, easy bruising, swollen glands, diathesis, other Physical Exam General Appearance: alert, alert oriented x3 HEENT: normocephalic, atraumatic, PERRL Neck: non-tender, normal inspection Respiratory/Chest: lungs clear, normal breath sounds, no respiratory distress Cardiovascular/Chest: normal rate, regular rhythm, regularly irregular Abdomen: distended, tender, other - no guarding or rebound Extremities: normal range of motion 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 II-XII grossly normal, oriented x 3 Last 24 Hour Vital Signs Date Time Temp Pulse Resp B/P (MAP) Pulse Ox O2 Delivery O2 Flow Rate FiO2 08/05/20 14:55 92 18 129/81 98 Room Air 08/05/20 12:56 97.9 89 19 110/75 98 Room Air 08/05/20 12:56 89 19 Room Air 08/05/20 12:45 97.9 89 19 110/75 (87) 98 Room Air Laboratory Tests Test 08/05/20 12:50 08/05/20 13:35 White Blood Count 4.4 K/UL (4.8-10.8) L Red Blood Count 3.08 M/UL (4.70-6.10) L Hemoglobin 9.4 G/DL (14.2-18.0) L Hematocrit 28.3 % (42.0-52.0) L Mean Corpuscular Volume 92 FL (80-99) Mean Corpuscular Hemoglobin 30.5 PG (27.0-31.0) Mean Corpuscular Hemoglobin Concent 33.3 G/DL (32.0-36.0) Red Cell Distribution Width 17.0 % (11.6-14.8) H Platelet Count 140 K/UL (150-450) L Mean Platelet Volume 6.3 FL (6.5-10.1) L Neutrophils (%) (Auto) 83.6 % (45.0-75.0) H Lymphocytes (%) (Auto) 8.8 % (20.0-45.0) L Monocytes (%) (Auto) 5.8 % (1.0-10.0) Eosinophils (%) (Auto) 0.2 % (0.0-3.0) Basophils (%) (Auto) 1.7 % (0.0-2.0) Prothrombin Time 12.7 SEC (9.30-11.50) H Prothromb Time International Ratio 1.2 (0.9-1.1) H Activated Partial Thromboplast Time 31 SEC (23-33) Sodium Level 127 MMOL/L (136-145) L Potassium Level 4.4 MMOL/L (3.5-5.1) Chloride Level 99 MMOL/L (98-107) Carbon Dioxide Level 21 MMOL/L (21-32) Anion Gap 7 mmol/L (5-15) Blood Urea Nitrogen 11 mg/dL (7-18) Creatinine 1.3 MG/DL (0.55-1.30) Estimat Glomerular Filtration Rate 59.2 mL/min (>60) Glucose Level 145 MG/DL (74-106) H Calcium Level 6.9 MG/DL (8.5-10.1) L Total Bilirubin 0.8 MG/DL (0.2-1.0) Aspartate Amino Transf (AST/SGOT) 95 U/L (15-37) H Alanine Aminotransferase (ALT/SGPT) 30 U/L (12-78) Alkaline Phosphatase 168 U/L (46-116) H Total Protein 6.5 G/DL (6.4-8.2) Albumin 1.8 G/DL (3.4-5.0) L Globulin 4.7 g/dL Albumin/Globulin Ratio 0.4 (1.0-2.7) L Lipase 899 U/L (73-393) H Ammonia 92 umol/L (11-32) H Height (Feet): 5 Height (Inches): 2.00 Weight (Pounds): 190 Medications Current Medications Medications (Trade) Dose Ordered Sig/Desirae Route PRN Reason Start Time Stop Time Status Last Admin Dose Admin Acetaminophen (Tylenol) 650 mg Q6H PRN ORAL Temp >100.5 08/05/20 15:15 09/04/20 15:14 Al Hydroxide/Mg Hydroxide (Mylanta II) 30 ml Q6H PRN ORAL dyspepsia 08/05/20 15:15 09/04/20 15:14 Albuterol/ Ipratropium (Albuterol/ Ipratropium) 3 ml Q4H PRN HHN Shortness of Breath 08/05/20 15:15 08/10/20 15:14 Ceftriaxone Sodium 2 gm/ Sodium Chloride 55 ml @ 110 mls/hr DAILY IVPB 08/05/20 15:30 08/12/20 15:29 UNV Dextrose (Dextrose 50%) 25 ml Q30M PRN IV Hypoglycemia 08/05/20 15:15 11/03/20 15:14 Dextrose (Dextrose 50%) 50 ml Q30M PRN IV Hypoglycemia 08/05/20 15:15 11/03/20 15:14 Heparin Sodium (Porcine) (Heparin 5000 units/ml) 5,000 units EVERY 12 HOURS SUBQ 08/06/20 09:00 09/20/20 08:59 Ondansetron HCl (Zofran) 4 mg Q6H PRN IVP Nausea & Vomiting 08/05/20 15:15 09/04/20 15:14 Piperacillin Sod/ Tazobactam Sod 3.375 gm/Sodium Chloride 110 ml @ 220 mls/hr ONCE ONCE IVPB 08/05/20 15:30 08/05/20 15:59 Polyethylene Glycol (Miralax) 17 gm HSPRN PRN ORAL Constipation 08/05/20 15:15 09/04/20 15:14 Sodium Chloride 1,000 ml @ 999 mls/hr Q1H1M ONCE IV 08/05/20 15:30 08/05/20 16:30 Assessment/Plan Diagnosis [place] I: Mr. Beaulieu is a 45M with PMH of alcohol cirrhosis presenting for recurrent abdo leslie ascites. A: # Recurrent Abdominal Ascites w/ SBP r/o # Alcoholic Cirrhosis # Pancytopenia 2/2 BM suppression, Splenic sequestration # Hypos-osmotic Hypervolemic Hyponatremia 2/2 Cirrhosis # Esophageal Varices # Iron Deficiency Anemia # Large Ventral Hernia P: - hemodynamically stable - sat well on RA, keep O2 > 92% - MELD-Na score: 20 - Child-Escalante Class: B - f/u US guided Paracentesis fluid analysis - will cover for SBP with Rocephin until analysis returns given abdominal pain and tenderness - albumin resuscitation once we know how much volume was removed - ammonium elevated; however no concerns of HE on exam - strict I/O's - low salt diet - Volume restriction 1500 ml daily - start aldactone 50 mg daily - start lasix 20 mg daily - start iron supplementation - f/u UTOX, ethanol levels - patient will need EGD for surveillance variceal evaluation - Consult Dr. Cohen GI, recs appreciated - CM/SW Code: Full GI: none Diet: Low salt Fluids: Albumin DVT: Heparin 5000 U BID Dispo: pending ascites work up In addition to the usual care above I spent additional time reviewing records in the EMR and paper charts including physician documentation, nursing documentation, lab results, imaging and clinical documentation. Total time included was 35 min. Advanced care planning 17 minutes was spent which included discussion of both acute and chronic medical illnesses, code status, goals of care and advanced directives and POLST. Time spent on this encounter was 55 minutes which included 35 minutes of counseling and care coordination. I discussed with the nurse at bedside. Time of note may not reflect time patient was seen. Matt Hyde D.O Aug 05, 2020 15:49
--- NOTE | 2020-08-05 15:52 | Emergency Room Report ---
History of Present Illness General Chief Complaint: Abdominal Pain Source: Patient Present Illness HPI 45-year-old male presents to ED for evaluation. States that his abdomen is distended. States that he recently left here AMA. Pain is sharp, 10 out of 10, nonradiating. States he had his fluid drained from him on last admission. Denies fevers or chills. Denies chest pain. No other aggravating relieving factors. 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-19 Testing performed [place]: Yes - a month ago COVID-19 Screening: Negative COVID-19 COVID-19 Testing Source: unable to recall the place Patient History Past Medical History: other - Cirrhosis Past Surgical History: none Pertinent Family History: none Social History: Denies: smoking, alcohol use, drug use Immunizations: UTD Reviewed Nursing Documentation: PMH: Agreed; PSxH: Agreed Nursing Documentation-PMH Hx Cardiac Problems: No Hx Cancer: No Hx Gastrointestinal Problems: Yes Hx Neurological Problems: No Review of Systems All Other Systems: negative except mentioned in HPI Physical Exam Vital Signs Date Time Temp Pulse Resp B/P (MAP) Pulse Ox O2 Delivery O2 Flow Rate FiO2 08/05/20 12:45 97.9 89 19 110/75 (87) 98 Room Air Sp02 EP Interpretation: reviewed, normal General Appearance: no apparent distress, alert, GCS 15, non-toxic Head: normocephalic, atraumatic Eyes: bilateral eye PERRL, bilateral eye other - Icteric sclera ENT: hearing grossly normal, normal pharynx, no angioedema, normal voice Neck: full range of motion, supple/symm/no masses Respiratory: chest non-tender, lungs clear, normal breath sounds, speaking full sentences Cardiovascular #1: regular rate, rhythm, no edema Cardiovascular #2: 2+ carotid (R), 2+ carotid (L), 2+ radial (R), 2+ radial (L), 2+ dorsalis pedis (R), 2+ dorsalis pedis (L) Gastrointestinal: normal bowel sounds, soft, distended Rectal: deferred Genitourinary: normal inspection, no CVA tenderness Musculoskeletal: back normal, normal range of motion, gait/station normal, non- tender Neurologic: alert, motor strength/tone normal, oriented x3, sensory intact, responsive, speech normal Psychiatric: judgement/insight normal, memory normal, mood/affect normal, no suicidal/homicidal ideation Reflexes: 3+ bicep (R), 3+ bicep (L), 3+ tricep (R), 3+ tricep (L), 3+ knee (R), 3+ knee (L) Skin: other - See nursing notes Lymphatic: no adenopathy Procedures Critical Care Time Critical Care Time i. I feel this is a highly complex case requiring extensive working including EKG/Rhythm strip, Xray/CT/US, Blood/urine lab work, repeat exams while in ED, and administration of strong opiates/narcotics for pain control, admission to hospital or close patient follow up. Total time: 60 min bedside evaluation and treatment excludes procedures (EKG). Reason for critical care: Hyponatremia, ascites, hepatic encephalopathy Possible complications: hypotension, hypertension, OH, shock, arrhythmias, metabolic acidosis, end organ damage, respiratory failure. Interventions: labs, IR paracentesis, albumin, antibiotics Course: Patient presenting with distended abdomen. History of cirrhosis. Labs drawn. Lipase elevated. Sodium 127. Paracentesis performed by IR. Fluid sent for analysis. Antibiotics given. Albumin ordered. Consultations: nursing staff, EMS, family Performed by: Dr Mckinley Tolerated well condition = serious j. because of unstable vital signs this patient had a condition that could potentially threaten life or limb. I feel this is a critical patient who required my full attention while patient was considered critical. Total Critical Care Time excluding procedures was greater than 60 minutes Medical Decision Making Diagnostic Impression: Primary Impression: Alcoholic cirrhosis of liver with ascites Additional Impressions: Pancreatitis Qualified Codes: K85.20 - Alcohol induced acute pancreatitis without ne crosis or infection Hyponatremia Hepatic encephalopathy ER Course Hospital Course 45-year-old male presents with abdominal distention. History of cirrhosis Differential diagnoses include: Cirrhosis, ascites, SBP Clinical course Patient placed on stretcher. quality assurance monitor body. After initial history and physical I ordered labs, paracentesis Labs - no leukocytosis, Hb/Hct stable, Na 127, Lipase elevated, ammonia elevated IR performed ultrasound-guided paracentesis. Fluid sent for analysis. Antibiotics given. Albumin given. Case discussed with Dr. Covarrubias and he agreed to accept the patient to his service for further care and support I feel this is a highly complex case requiring extensive working including EKG/Rhythm strip, Xray/CT/US, Blood/urine lab work, repeat exams while in ED, and administration of strong opiates/narcotics for pain control, admission to hospital or close patient follow up. Diagnosis -alcoholic cirrhosis of liver with ascites, pancreatitis, hyponatremi a, hepatic encephalopathy Patient admitted to floor in serious condition Laboratory Tests Test 08/05/20 12:50 08/05/20 13:35 White Blood Count 4.4 K/UL (4.8-10.8) L Red Blood Count 3.08 M/UL (4.70-6.10) L Hemoglobin 9.4 G/DL (14.2-18.0) L Hematocrit 28.3 % (42.0-52.0) L Mean Corpuscular Volume 92 FL (80-99) Mean Corpuscular Hemoglobin 30.5 PG (27.0-31.0) Mean Corpuscular Hemoglobin Concent 33.3 G/DL (32.0-36.0) Red Cell Distribution Width 17.0 % (11.6-14.8) H Platelet Count 140 K/UL (150-450) L Mean Platelet Volume 6.3 FL (6.5-10.1) L Neutrophils (%) (Auto) 83.6 % (45.0-75.0) H Lymphocytes (%) (Auto) 8.8 % (20.0-45.0) L Monocytes (%) (Auto) 5.8 % (1.0-10.0) Eosinophils (%) (Auto) 0.2 % (0.0-3.0) Basophils (%) (Auto) 1.7 % (0.0-2.0) Prothrombin Time 12.7 SEC (9.30-11.50) H Prothromb Time International Ratio 1.2 (0.9-1.1) H Activated Partial Thromboplast Time 31 SEC (23-33) Sodium Level 127 MMOL/L (136-145) L Potassium Level 4.4 MMOL/L (3.5-5.1) Chloride Level 99 MMOL/L (98-107) Carbon Dioxide Level 21 MMOL/L (21-32) Anion Gap 7 mmol/L (5-15) Blood Urea Nitrogen 11 mg/dL (7-18) Creatinine 1.3 MG/DL (0.55-1.30) Estimat Glomerular Filtration Rate 59.2 mL/min (>60) Glucose Level 145 MG/DL (74-106) H Calcium Level 6.9 MG/DL (8.5-10.1) L Total Bilirubin 0.8 MG/DL (0.2-1.0) Aspartate Amino Transf (AST/SGOT) 95 U/L (15-37) H Alanine Aminotransferase (ALT/SGPT) 30 U/L (12-78) Alkaline Phosphatase 168 U/L (46-116) H Total Protein 6.5 G/DL (6.4-8.2) Albumin 1.8 G/DL (3.4-5.0) L Globulin 4.7 g/dL Albumin/Globulin Ratio 0.4 (1.0-2.7) L Lipase 899 U/L (73-393) H Ammonia 92 umol/L (11-32) H Last Vital Signs Date Time Temp Pulse Resp B/P (MAP) Pulse Ox O2 Delivery O2 Flow Rate FiO2 08/05/20 14:55 92 18 129/81 98 Room Air 08/05/20 12:56 97.9 Status: improved Disposition: ADMITTED INPATIENT Condition: Serious Referrals: NOT CHOSEN IPA/,REFERRING (PCP) Vasile Mckinley MD Aug 05, 2020 15:52
--- NOTE | 2020-08-05 16:43 | NUR ---
ED Nurse Note: 9.9 L out put from paracentesis
[2020-08-05 16:45] VITALS: BP 122/83
--- NOTE | 2020-08-05 16:45 | NUR ---
ED Nurse Note: paracentesis completed; patient tolerated well. patient ao4 with no acute distress. attached to monitor. vitals stable to baseline. iv intact and patent. all safety measures met. will continue to monitor.
--- NOTE | 2020-08-05 16:52 | Pre-Procedure Note/Attestation ---
Pre-Procedure Note/Attestation Complete Prior to Procedure Planned Procedure: not applicable Procedure Narrative: paracentesis Indications for Procedure Pre-Operative Diagnosis: tense ascites Attestation I attest that I discussed the nature of the procedure; its benefits; risks and complications; and alternatives (and the risks and benefits of such alternatives), prior to the procedure, with the patient (or the patient's legal health and safety representative). I attest that, if there was a reasonable possibility of needing a blood transfusion, the patient (or the patient's legal health and safety representative) was given the [facility] standardized written summary, pursuant to the Ruben Maritza Blood Safety Act ([place] Health and Safety Code # 1645, as amended). I attest that I re-evaluated the patient just prior to the surgery and that there has been no change in the patient's H&P, except as documented below: Renard Fair M.D. Aug 05, 2020 16:52
--- NOTE | 2020-08-05 16:58 | Diagnostic Imaging Report ---
Indications: Recurrent ascites, tense abdominal distention Technique: Ultrasound used to localize optimal puncture site. Sterile prepping and draping left lower quadrant. Local anesthesia with 1% lidocaine. Puncture peritoneal space using paracentesis needle. Stylet removed. Catheter placed to vacuum bottle suction. Total 9.9 liters of cloudy yellow fluid aspirated. Patient tolerated procedure well, without immediate complication. Findings: Followup sonography demonstrates complete resolution of peritoneal fluid. Impression: Successful ultrasound-guided paracentesis, yielding 9.9 liters of fluid
--- NOTE | 2020-08-05 17:04 | General Progress Note ---
Advance Care Planning Advance Care Planning Advance Care Planning [facility] An independent Hospitalist group, where every patient is our [facility] Internal Medicine Hospitalist Advanced Care Planning Note Please contact us at Date of Discussion: A [id number] discussion with the patient regarding the patient's advanced care planning took place during this hospitalization on the above date. The discussion included the explanation and discussion of advance directives and associated forms/documents, as well as the patient's current code status. We also discussed at length the patient's medical conditions (both acute and chroni c), general prognosis, treatment options, and goals of care. The following summarizes the discussion: Advance Care Planning/Goals of Care: - Will attempt to fill out an AD and/or POLST with the patient prior to discharge, if not already completed - Continue current evaluation and management of any acute and chronic medical issues - Will continue to support the patient/family - Will continue to discuss both short- and long-term goals of care DPOA-HC/Surrogate Decision Maker: None currently appointed Code Status: Full Code Advanced Care Planning Forms/Documents Completed: Deferred until later encounter/visit A total of 17 minutes was spent on this discussion, including counseling, answering questions, and completing, if any, pertinent advanced care planning forms/documents. Time of note may not reflect time of encounter. Matt Hyde D.O Aug 05, 2020 17:04
[2020-08-05 18:00] VITALS: BP 119/81
--- NOTE | 2020-08-05 18:00 | NUR ---
ED Nurse Note: patient refused all care. IV d/c per patient. patient insists on leaving AMA; explained risk and benefits x 3. notified ermd.
--- NOTE | 2020-08-05 18:15 | NUR ---
ED Nurse Note: confirmed destination after leaving ama with patient. patient denies homelessness and states he lives with his family. refuses to disclose home address. patient well groomed with weather appropriate clothing. patient states "I have a home that i want to go to. I am not homeless. I feel better. I dont want to be here. "
[2020-08-05 18:29] VITALS: BP 122/83
--- NOTE | 2020-08-05 18:29 | NUR ---
AMA: patient ao4 with no acute distress. vitals stable to baseline. patient insists on leaving AMA. explained risk and benefits x3 with ermd. patient still refuses. SEE AMA FORM.
[2020-08-05] MEDS ORDERED: Spironolactone 50mg tab ORAL SCH (20:00)
[2020-08-05] MEDS ORDERED: Ferrous Gluconate 324 MG TAB ORAL SCH (20:00)
[2020-08-06] MEDS ORDERED: Heparin 5000 units/ml inj SUBQ SCH (09:00)
[2020-08-06] MEDS ORDERED: Spironolactone 50mg tab ORAL SCH (09:00)
--- NOTE | 2020-08-06 15:04 | Discharge Summary ---
Discharge Summary Hospital Course Date of Admission Date of Discharge Admitting Diagnosis ascites HPI Was informed by ED physician patient had elected to leave AMA after paracentesis procedure. He had full capacity and was aware of the risks of leaving AMA. He was informed to return to ED should any issues arise. Discharge Discharge Vital Signs Last Vital Signs Date Time Temp Pulse Resp B/P (MAP) Pulse Ox O2 Delivery O2 Flow Rate FiO2 08/05/20 18:29 97.9 88 17 122/83 99 Room Air Discharge Disposition Patient was discharged to Matt Hyde D.O Aug 06, 2020 15:04
== END 2020-08-05 18:29 | disposition other institution (70) ==
LOC: EMR 13:00
DX: K72.90 Hepatic failure, unspecified without coma (principal); K70.31 Alcoholic cirrhosis of liver with ascites; K85.20 Alcohol induced acute pancreatitis without necrosis or infection; E87.1 Hypo-osmolality and hyponatremia; K43.9 Ventral hernia without obstruction or gangrene; D50.9 Iron deficiency anemia, unspecified; I85.00 Esophageal varices without bleeding; D61.818 Other pancytopenia; E87.70 Fluid overload, unspecified
CPT/HCPCS: 36415; 49083; 76942; 80053; 82040; 82140; 83605; 83690; 84157; 85025; 85610; 85730; 86850; 86900; 86901; 87040; 87070; 87205; 88104; 89051; 96361; 96365; 96367; 96375; G0480; J2543; J7030; P9045; Z7502; 99291

== ENCOUNTER 2020-08-11 10:50 | Inpatient (IN) | payer MEDICAID ==
[~2020-08-11] VITALS: Ht 157.5 cm; Wt 77.8 kg
[2020-08-11 11:15] VITALS: BP 108/72
[2020-08-11] MEDS ORDERED: Ampicillin/Sulbactam Sod 3 GM in NS 110 ML IV ONE (11:15)
[2020-08-11 11:37] LABS: BASOPHILS % (AUTO) 2.1 % (0.0-2.0); EOSINOPHILS % (AUTO) 1.9 % (0.0-3.0); HEMATOCRIT 26.4 % (42.0-52.0); HEMOGLOBIN 8.5 G/DL (14.2-18.0); LYMPHOCYTES % (AUTO) 12.1 % (20.0-45.0); MEAN CORPUSCULAR VOLUME 94 FL (80-99); MONOCYTES % (AUTO) 8.9 % (1.0-10.0); PLATELET COUNT 120 K/UL (150-450); RED CELL DISTRIBUTION WIDTH 17.4 % (11.6-14.8); WHITE BLOOD COUNT 4.1 K/UL (4.8-10.8)
[2020-08-11 11:42] LABS: INR 1.2 (0.9-1.1)
[2020-08-11 11:46] LABS: ANION GAP 11 mmol/L (5-15); BLOOD UREA NITROGEN 14 mg/dL (7-18); CALCIUM 7.8 MG/DL (8.5-10.1); CARBON DIOXIDE 18 MMOL/L (21-32); CHLORIDE 96 MMOL/L (98-107); CREATININE 1.2 MG/DL (0.55-1.30); POTASSIUM 4.4 MMOL/L (3.5-5.1); SODIUM 125 MMOL/L (136-145)
[2020-08-11 12:01] LABS: ALANINE AMINOTRANSFERASE 44 U/L (12-78); ALBUMIN 2.3 G/DL (3.4-5.0); ALBUMIN/GLOBULIN RATIO 0.5 (1.0-2.7); ALKALINE PHOSPHATASE 172 U/L (46-116); ASPARTATE AMINO TRANSFERASE 135 U/L (15-37); BILIRUBIN,TOTAL 1.4 MG/DL (0.2-1.0); CKMB 8.4 NG/ML (0.0-3.6); CREATINE KINASE 610 U/L (26-308)
[2020-08-11 12:06] LABS: BILIRUBIN,DIRECT 0.7 MG/DL (0.0-0.3)
[2020-08-11 13:26] LABS: APPEARANCE,URINE CLEAR; BILIRUBIN, URINE NEGATIVE (NEGATIVE); GLUCOSE, URINE (UA) NEGATIVE (NEGATIVE); KETONES,URINE NEGATIVE (NEGATIVE); LEUKOCYTE ESTERASE ,URINE NEGATIVE (NEGATIVE); NITRITE,URINE NEGATIVE (NEGATIVE); PH,URINE 6 (4.5-8.0); PROTEIN,URINE NEGATIVE (NEGATIVE); UROBILINOGEN,URINE NORMAL MG/DL (0.0-1.0)
[2020-08-11 13:27] LABS: COLOR,URINE YELLOW
--- NOTE | 2020-08-11 14:57 | Emergency Room Report ---
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 Nursing Documentation-[facility] Past Medical History: No History, Except For Hx Cardiac Problems: No - abd hernia Hx Cancer: No Hx Gastrointestinal Problems: Yes Hx Neurological Problems: No Review of Systems All Other Systems: negative except mentioned in HPI Physical Exam Vital Signs Date Time Temp Pulse Resp B/P (MAP) Pulse Ox O2 Delivery O2 Flow Rate FiO2 08/11/20 10:52 98.2 112 18 108/72 (84) 96 Room Air Medical Decision Making Diagnostic Impression: Primary Impression: Alcoholic cirrhosis of liver with ascites Additional Impression: Bacteremia Laboratory Tests Test 08/11/20 11:05 08/11/20 12:45 White Blood Count 4.1 K/UL (4.8-10.8) L Red Blood Count 2.80 M/UL (4.70-6.10) L Hemoglobin 8.5 G/DL (14.2-18.0) L Hematocrit 26.4 % (42.0-52.0) L Mean Corpuscular Volume 94 FL (80-99) Mean Corpuscular Hemoglobin 30.5 PG (27.0-31.0) Mean Corpuscular Hemoglobin Concent 32.4 G/DL (32.0-36.0) Red Cell Distribution Width 17.4 % (11.6-14.8) H Platelet Count 120 K/UL (150-450) L Mean Platelet Volume 6.7 FL (6.5-10.1) Neutrophils (%) (Auto) 75.0 % (45.0-75.0) Lymphocytes (%) (Auto) 12.1 % (20.0-45.0) L Monocytes (%) (Auto) 8.9 % (1.0-10.0) Eosinophils (%) (Auto) 1.9 % (0.0-3.0) Basophils (%) (Auto) 2.1 % (0.0-2.0) H Prothrombin Time 12.8 SEC (9.30-11.50) H Prothrombin Time INR 1.2 (0.9-1.1) H Activated Partial Thromboplast Time 29 SEC (23-33) Sodium Level 125 MMOL/L (136-145) L Potassium Level 4.4 MMOL/L (3.5-5.1) Chloride Level 96 MMOL/L (98-107) L Carbon Dioxide Level 18 MMOL/L (21-32) L Anion Gap 11 mmol/L (5-15) Blood Urea Nitrogen 14 mg/dL (7-18) Creatinine 1.2 MG/DL (0.55-1.30) Estimated Glomerular Filtration Rate > 60 mL/min (>60) Glucose Level 184 MG/DL (74-106) H Lactic Acid Level 1.80 mmol/L (0.4-2.0) Calcium Level 7.8 MG/DL (8.5-10.1) L Total Bilirubin 1.4 MG/DL (0.2-1.0) H Direct Bilirubin 0.7 MG/DL (0.0-0.3) H Aspartate Amino Transferase (AST) 135 U/L (15-37) H Alanine Aminotransferase (ALT) 44 U/L (12-78) Alkaline Phosphatase 172 U/L (46-116) H Total Creatine Kinase 610 U/L (26-308) H Creatine Kinase MB 8.4 NG/ML (0.0-3.6) H Creatine Kinase MB Relative Index 1.3 Total Protein 6.9 G/DL (6.4-8.2) Albumin 2.3 G/DL (3.4-5.0) L Globulin 4.6 g/dL Albumin/Globulin Ratio 0.5 (1.0-2.7) L Urine Color Yellow Urine Appearance Clear Urine pH 6 (4.5-8.0) Urine Specific [place] 1.010 (1.005-1.035) Urine Protein Negative (NEGATIVE) Urine Glucose (UA) Negative (NEGATIVE) Urine Ketones Negative (NEGATIVE) Urine Blood Negative (NEGATIVE) Urine Nitrite Negative (NEGATIVE) Urine Bilirubin Negative (NEGATIVE) Urine Urobilinogen Normal MG/DL (0.0-1.0) Urine Leukocyte Esterase Negative (NEGATIVE) EKG Diagnostic Results Rate: normal Rhythm: NSR ST Segments: no acute changes Rhythm Strip Diag. Results EP Interpretation: yes Rate: 90's Rhythm: NSR, no PVC's, no ectopy Last Vital Signs Date Time Temp Pulse Resp B/P (MAP) Pulse Ox O2 Delivery O2 Flow Rate FiO2 08/11/20 11:15 98.2 18 108/72 96 Room Air 08/11/20 11:15 112 Referrals: NOT CHOSEN IPA/,REFERRING (PCP) Jessie Bravo DO Aug 11, 2020 14:57
[2020-08-11] MEDS ORDERED: Miralax 17gm pkt ORAL PRN (16:45)
[2020-08-11] MEDS ORDERED: Nitroglycerin Subl 0.4mg tab SL PRN (16:45)
[2020-08-11 17:15] VITALS: BP 117/74
[2020-08-11] MEDS: D5 1/2NS 1,000 ML IV SCH (17:58)
--- NOTE | 2020-08-11 19:17 | History & Physical ---
History and Physical History & Physicial Uriel Green MD Aug 11, 2020 19:17
[2020-08-11 20:00] VITALS: BP 125/68
[2020-08-11] MEDS: Vancomycin 750 MG in NS 275 ML IVPB SCH (20:48)
[2020-08-11] MEDS ORDERED: Phytonadione 10 MG in D5W 55 ML IVPB SCH (21:00)
[2020-08-11] MEDS: HYDROcodone/Acetamin 5/325 tab ORAL PRN (21:42)
[2020-08-12] VITALS: BP_SYST 125; BP_SYST 97; BP_DIAS 46; BP_DIAS 68
[2020-08-12 04:00] VITALS: BP 96/57
[2020-08-12] MEDS: Vancomycin 750 MG in NS 275 ML IVPB SCH ×2 (04:00→14:30)
[2020-08-12] MEDS: HYDROcodone/Acetamin 5/325 tab ORAL PRN ×2 (04:53→10:51)
[2020-08-12] MEDS: D5 1/2NS 1,000 ML IV SCH (06:05)
[2020-08-12 07:26] LABS: BASOPHILS % (AUTO) 1.4 % (0.0-2.0); EOSINOPHILS % (AUTO) 1.3 % (0.0-3.0); HEMATOCRIT 27.8 % (42.0-52.0); HEMOGLOBIN 9.3 G/DL (14.2-18.0); LYMPHOCYTES % (AUTO) 19.2 % (20.0-45.0); MEAN CORPUSCULAR VOLUME 93 FL (80-99); MONOCYTES % (AUTO) 9.9 % (1.0-10.0); NEUTROPHILS % (AUTO) 68.3 % (45.0-75.0); PLATELET COUNT 126 K/UL (150-450); RED BLOOD COUNT 2.99 M/UL (4.70-6.10); RED CELL DISTRIBUTION WIDTH 18.2 % (11.6-14.8); WHITE BLOOD COUNT 4.5 K/UL (4.8-10.8)
[2020-08-12 07:48] LABS: ALANINE AMINOTRANSFERASE 49 U/L (12-78); ALBUMIN 2.3 G/DL (3.4-5.0); ALBUMIN/GLOBULIN RATIO 0.5 (1.0-2.7); ALKALINE PHOSPHATASE 174 U/L (46-116); ASPARTATE AMINO TRANSFERASE 139 U/L (15-37); BILIRUBIN,TOTAL 1.6 MG/DL (0.2-1.0); BLOOD UREA NITROGEN 16 mg/dL (7-18); CALCIUM 8.1 MG/DL (8.5-10.1); CARBON DIOXIDE 23 MMOL/L (21-32); CHLORIDE 101 MMOL/L (98-107); CREATININE 1.1 MG/DL (0.55-1.30); POTASSIUM 4.3 MMOL/L (3.5-5.1); SODIUM 130 MMOL/L (136-145)
[2020-08-12 07:49] LABS: BILIRUBIN,DIRECT 0.8 MG/DL (0.0-0.3)
[2020-08-12 08:00] VITALS: BP 105/63
[2020-08-12 12:00] VITALS: BP 102/58
--- NOTE | 2020-08-12 12:01 | Consultation ---
History of Present Illness General Date patient seen: Aug 12, 2020 Chief Complaint: Abdominal Pain Present Illness HPI 45 years old male with past medical history of ETOH abuse and alcoholic liver cirrhosis, chronic ascites with abdominal distention , with repeated paracentesis, presented to ER with CC of worsening abdominal distention for the past several days. He is admitted for paracentesis. Allergies: Coded Allergies: No Known Allergies (Unverified , 05/24/20) Medication History No Active Prescriptions or Reported Meds Patient History Healthcare decision maker Resuscitation status Advanced Directive on File Past Medical/Surgical History Past Medical/Surgical History: (1) Hepatic encephalopathy Review of Systems All Other Systems: negative except mentioned in HPI Physical Exam General Appearance: WD/WN, no apparent distress, alert Lines, tubes and drains: peripheral HEENT: atraumatic, PERRL Neck: non-tender Respiratory/Chest: chest wall non-tender, lungs clear, no respiratory distress Abdomen: normal bowel sounds, non tender, distended, hepatomegaly, splenomegaly Genitourinary/Rectal: normal genital exam Last 24 Hour Vital Signs Date Time Temp Pulse Resp B/P (MAP) Pulse Ox O2 Delivery O2 Flow Rate FiO2 08/12/20 09:00 Room Air 08/12/20 08:00 100 08/12/20 08:00 96.7 61 20 105/63 (77) 96 08/12/20 05:23 98.2 08/12/20 04:00 94 08/12/20 04:00 98.2 64 18 96/57 (70) 99 08/12/20 00:00 98.1 61 18 97/46 (63) 99 08/12/20 00:00 104 08/11/20 22:12 98.8 08/11/20 21:00 Room Air 08/11/20 20:00 97.6 65 22 125/68 (87) 99 08/11/20 20:00 118 08/11/20 18:24 98.8 08/11/20 17:49 Room Air 08/11/20 17:15 101.3 94 19 117/74 (88) 99 08/11/20 17:05 98.2 76 18 154/78 95 Room Air Intake and Output 08/11/20 08/12/20 19:00 07:00 Intake Total 570 ml Balance 570 ml Intake Oral 120 ml IV Total 450 ml # Voids 1 3 # Bowel Movements 1 1 Laboratory Tests Test 08/11/20 12:45 08/12/20 06:45 Urine Color Yellow Urine Appearance Clear Urine pH 6 (4.5-8.0) Urine Specific [place] 1.010 (1.005-1.035) Urine Protein Negative (NEGATIVE) Urine Glucose (UA) Negative (NEGATIVE) Urine Ketones Negative (NEGATIVE) Urine Blood Negative (NEGATIVE) Urine Nitrite Negative (NEGATIVE) Urine Bilirubin Negative (NEGATIVE) Urine Urobilinogen Normal MG/DL (0.0-1.0) Urine Leukocyte Esterase Negative (NEGATIVE) White Blood Count 4.5 K/UL (4.8-10.8) L Red Blood Count 2.99 M/UL (4.70-6.10) L Hemoglobin 9.3 G/DL (14.2-18.0) L Hematocrit 27.8 % (42.0-52.0) L Mean Corpuscular Volume 93 FL (80-99) Mean Corpuscular Hemoglobin 31.0 PG (27.0-31.0) Mean Corpuscular Hemoglobin Concent 33.4 G/DL (32.0-36.0) Red Cell Distribution Width 18.2 % (11.6-14.8) H Platelet Count 126 K/UL (150-450) L Mean Platelet Volume 6.7 FL (6.5-10.1) Neutrophils (%) (Auto) 68.3 % (45.0-75.0) Lymphocytes (%) (Auto) 19.2 % (20.0-45.0) L Monocytes (%) (Auto) 9.9 % (1.0-10.0) Eosinophils (%) (Auto) 1.3 % (0.0-3.0) Basophils (%) (Auto) 1.4 % (0.0-2.0) Activated Partial Thromboplast Time 27 SEC (23-33) Sodium Level 130 MMOL/L (136-145) L Potassium Level 4.3 MMOL/L (3.5-5.1) Chloride Level 101 MMOL/L (98-107) Carbon Dioxide Level 23 MMOL/L (21-32) Blood Urea Nitrogen 16 mg/dL (7-18) Creatinine 1.1 MG/DL (0.55-1.30) Estimat Glomerular Filtration Rate > 60 mL/min (>60) Glucose Level 129 MG/DL (74-106) H Calcium Level 8.1 MG/DL (8.5-10.1) L Total Bilirubin 1.6 MG/DL (0.2-1.0) H Direct Bilirubin 0.8 MG/DL (0.0-0.3) H Aspartate Amino Transf (AST/SGOT) 139 U/L (15-37) H Alanine Aminotransferase (ALT/SGPT) 49 U/L (12-78) Alkaline Phosphatase 174 U/L (46-116) H Total Protein 7.2 G/DL (6.4-8.2) Albumin 2.3 G/DL (3.4-5.0) L Globulin 4.9 g/dL Albumin/Globulin Ratio 0.5 (1.0-2.7) L Microbiology Date/Time Source Procedure Growth Status 08/11/20 16:05 Rectum Received Height (Feet): 5 Height (Inches): 2.00 Weight (Pounds): 168 Medications Current Medications Medications (Trade) Dose Ordered Sig/Desirae Route PRN Reason Start Time Stop Time Status Last Admin Dose Admin Acetaminophen (Tylenol) 650 mg Q4H PRN ORAL fever 08/11/20 16:45 09/10/20 16:44 08/11/20 17:54 Acetaminophen/ Hydrocodone Bitart ([place] 5/325) 1 tab Q6H PRN ORAL For Pain 08/11/20 21:00 08/18/20 20:59 08/12/20 10:51 Dextrose (Dextrose 50%) 25 ml Q30MIN PRN IV Hypoglycemia 08/11/20 16:45 11/09/20 16:44 Dextrose (Dextrose 50%) 50 ml Q30MIN PRN IV Hypoglycemia 08/11/20 16:45 11/09/20 16:44 Diphenhydramine HCl (Benadryl) 25 mg Q6H PRN ORAL Itching/Pruritis 08/11/20 16:45 09/10/20 16:44 Folic Acid 1 mg/ Magnesium Sulfate 2000 mg/ Multivitamins 10 ml/Sodium Chloride 1,014.2 ml @ 125 mls/ hr Q24H IV 08/12/20 13:00 09/11/20 12:59 Nitroglycerin (Ntg) 0.4 mg Q5M X 3 DOSES PRN SL Prn Chest Pain 08/11/20 16:45 09/10/20 16:44 Ondansetron HCl (Zofran) 4 mg Q6H PRN IVP Nausea & Vomiting 08/11/20 16:45 09/10/20 16:44 08/12/20 10:50 Polyethylene Glycol (Miralax) 17 gm HSPRN PRN ORAL Constipation 08/11/20 16:45 09/10/20 16:44 Temazepam (Restoril) 15 mg HSPRN PRN ORAL Insomnia 08/11/20 16:45 08/18/20 16:44 08/11/20 21:42 Thiamine HCl 100 mg/Dextrose 56 ml @ 112 mls/hr Q24H IVPB 08/12/20 13:00 09/11/20 12:59 [facility] 1 ea DAILY PRN MISC Per rx protocol 08/11/20 16:45 09/10/20 16:44 Vancomycin HCl 750 mg/Sodium Chloride 275 ml @ 183.333 mls/hr Q8H IVPB 08/11/20 20:00 08/16/20 19:59 08/11/20 20:48 Assessment/Plan Problem List: (1) Alcoholic cirrhosis of liver with ascites ICD Codes: K70.31 - Alcoholic cirrhosis of liver with ascites SNOMED: 865380278, 500717151 (2) Hyponatremia ICD Codes: E87.1 - Hypo-osmolality and hyponatremia SNOMED: 84712947 Assessment/Plan: paracentesis, folic acid, thiamine Banana bag symptomatic treatment Ever Moon MD Aug 12, 2020 12:01
[2020-08-12] MEDS ORDERED: Folic Acid 1 MG, Magnesium Sulfate 2,000 MG, Multivitamin - 12 Injection 10 ML in Sodiu... IV SCH (13:00)
[2020-08-12] MEDS ORDERED: Thiamine 100mg in D5W 55ml IVPB SCH (13:00)
--- NOTE | 2020-08-12 13:19 | Consultation ---
History of Present Illness General Date patient seen: Aug 12, 2020 Chief Complaint: Abdominal Pain Present Illness HPI 45 y/o M with hx of ETOH abuse and alcoholic liver cirrhosis w/ portal HTN, chronic ascites sp multiple paracentesis presented to ED on 08/11/20 with worsening abd distention. Patient was admitted for paracentesis. Allergies: Coded Allergies: No Known Allergies (Unverified , 05/24/20) Medication History No Active Prescriptions or Reported Meds Patient History Healthcare decision maker Resuscitation status Advanced Directive on File Patient History Narrative Pmhx: as above Shx: reviewed Fhx: non contributory Review of Systems All Other Systems: negative except mentioned in HPI Physical Exam Physical Exam Narrative General Appearance: WD/WN, no apparent distress, alert Lines, tubes and drains: peripheral HEENT: atraumatic, PERRL Neck: non-tender Respiratory/Chest: chest wall non-tender, lungs clear, no respiratory distress Abdomen: normal bowel sounds, non tender, distended, hepatomegaly, splenomegaly Last 24 Hour Vital Signs Date Time Temp Pulse Resp B/P (MAP) Pulse Ox O2 Delivery O2 Flow Rate FiO2 08/12/20 09:00 Room Air 08/12/20 08:00 100 08/12/20 08:00 96.7 61 20 105/63 (77) 96 08/12/20 05:23 98.2 08/12/20 04:00 94 08/12/20 04:00 98.2 64 18 96/57 (70) 99 08/12/20 00:00 98.1 61 18 97/46 (63) 99 08/12/20 00:00 104 08/11/20 22:12 98.8 08/11/20 21:00 Room Air 08/11/20 20:00 97.6 65 22 125/68 (87) 99 08/11/20 20:00 118 08/11/20 18:24 98.8 08/11/20 17:49 Room Air 08/11/20 17:15 101.3 94 19 117/74 (88) 99 08/11/20 17:05 98.2 76 18 154/78 95 Room Air Intake and Output 08/11/20 08/12/20 19:00 07:00 Intake Total 570 ml Balance 570 ml Intake Oral 120 ml IV Total 450 ml # Voids 1 3 # Bowel Movements 1 1 Laboratory Tests Test 08/12/20 06:45 White Blood Count 4.5 K/UL (4.8-10.8) L Red Blood Count 2.99 M/UL (4.70-6.10) L Hemoglobin 9.3 G/DL (14.2-18.0) L Hematocrit 27.8 % (42.0-52.0) L Mean Corpuscular Volume 93 FL (80-99) Mean Corpuscular Hemoglobin 31.0 PG (27.0-31.0) Mean Corpuscular Hemoglobin Concent 33.4 G/DL (32.0-36.0) Red Cell Distribution Width 18.2 % (11.6-14.8) H Platelet Count 126 K/UL (150-450) L Mean Platelet Volume 6.7 FL (6.5-10.1) Neutrophils (%) (Auto) 68.3 % (45.0-75.0) Lymphocytes (%) (Auto) 19.2 % (20.0-45.0) L Monocytes (%) (Auto) 9.9 % (1.0-10.0) Eosinophils (%) (Auto) 1.3 % (0.0-3.0) Basophils (%) (Auto) 1.4 % (0.0-2.0) Activated Partial Thromboplast Time 27 SEC (23-33) Sodium Level 130 MMOL/L (136-145) L Potassium Level 4.3 MMOL/L (3.5-5.1) Chloride Level 101 MMOL/L (98-107) Carbon Dioxide Level 23 MMOL/L (21-32) Blood Urea Nitrogen 16 mg/dL (7-18) Creatinine 1.1 MG/DL (0.55-1.30) Estimat Glomerular Filtration Rate > 60 mL/min (>60) Glucose Level 129 MG/DL (74-106) H Calcium Level 8.1 MG/DL (8.5-10.1) L Total Bilirubin 1.6 MG/DL (0.2-1.0) H Direct Bilirubin 0.8 MG/DL (0.0-0.3) H Aspartate Amino Transf (AST/SGOT) 139 U/L (15-37) H Alanine Aminotransferase (ALT/SGPT) 49 U/L (12-78) Alkaline Phosphatase 174 U/L (46-116) H Total Protein 7.2 G/DL (6.4-8.2) Albumin 2.3 G/DL (3.4-5.0) L Globulin 4.9 g/dL Albumin/Globulin Ratio 0.5 (1.0-2.7) L Microbiology Date/Time Source Procedure Growth Status 08/11/20 16:05 Rectum Received Height (Feet): 5 Height (Inches): 2.00 Weight (Pounds): 168 Medications Current Medications Medications (Trade) Dose Ordered Sig/Desirae Route PRN Reason Start Time Stop Time Status Last Admin Dose Admin Acetaminophen (Tylenol) 650 mg Q4H PRN ORAL fever 08/11/20 16:45 09/10/20 16:44 08/11/20 17:54 Acetaminophen/ Hydrocodone Bitart ([place] 5/325) 1 tab Q6H PRN ORAL For Pain 08/11/20 21:00 08/18/20 20:59 08/12/20 10:51 Dextrose (Dextrose 50%) 25 ml Q30MIN PRN IV Hypoglycemia 08/11/20 16:45 11/09/20 16:44 Dextrose (Dextrose 50%) 50 ml Q30MIN PRN IV Hypoglycemia 08/11/20 16:45 11/09/20 16:44 Diphenhydramine HCl (Benadryl) 25 mg Q6H PRN ORAL Itching/Pruritis 08/11/20 16:45 09/10/20 16:44 Folic Acid 1 mg/ Magnesium Sulfate 2000 mg/ Multivitamins 10 ml/Sodium Chloride 1,014.2 ml @ 125 mls/ hr Q24H IV 08/12/20 13:00 09/11/20 12:59 Nitroglycerin (Ntg) 0.4 mg Q5M X 3 DOSES PRN SL Prn Chest Pain 08/11/20 16:45 09/10/20 16:44 Ondansetron HCl (Zofran) 4 mg Q6H PRN IVP Nausea & Vomiting 08/11/20 16:45 09/10/20 16:44 08/12/20 10:50 Polyethylene Glycol (Miralax) 17 gm HSPRN PRN ORAL Constipation 08/11/20 16:45 09/10/20 16:44 Temazepam (Restoril) 15 mg HSPRN PRN ORAL Insomnia 08/11/20 16:45 08/18/20 16:44 08/11/20 21:42 Thiamine HCl 100 mg/Dextrose 56 ml @ 112 mls/hr Q24H IVPB 08/12/20 13:00 09/11/20 12:59 Vancomycin HCl ([facility] pharmacy to dose) 1 ea DAILY PRN MISC Per rx protocol 08/11/20 16:45 09/10/20 16:44 Vancomycin HCl 750 mg/Sodium Chloride 275 ml @ 183.333 mls/hr Q8H IVPB 08/11/20 20:00 08/16/20 19:59 08/11/20 20:48 Assessment/Plan Assessment/Plan: Abx: Unasyn x1 08/11 IV Vancomycin 08/11- Assessment: Sepsis Likely SBP- ascites -08/12 SP Paracentesis: Successful ultrasound-guided paracentesis, yielding 5 liters of fluid -Abd US: Coarsened hepatic echogenicity and hepatic surface nodularity, consistent with cirrhosis, also previously described. Negative for gallstones or dilated bile ducts. Ascites, also previously reported Left pleural effusion Fever Pancytopenia ETOH abuse and alcoholic liver cirrhosis w/ portal HTN chronic ascites sp multiple paracentesis Plan: -Start empiric Cefepime for probable SBP -Continue empiric IV Vancomycin #2 pending CXR and Bcx -f/u cx -Monitor CBC/CMP, temperatures -CXR -GI f/u -plan for paracentesis- send fluid analysis and culture -COVID19 testing Thank you for this consultation. Will continue to follow along with you. Discussed with Kizzy Albright M.D. Aug 12, 2020 13:19
[2020-08-12] MEDS ORDERED: Cefepime HCl 1 GM in D5W 55 ML IVPB SCH (15:00)
[2020-08-12 16:00] VITALS: BP 108/71
--- NOTE | 2020-08-12 16:12 | Diagnostic Imaging Report ---
Indications: Ascites Technique: Ultrasound used to localize optimal puncture site. Sterile prepping and draping left lower quadrant. Local anesthesia with 1% lidocaine. Under real-time ultrasound guidance, puncture peritoneal space using paracentesis needle. Stylet removed. Catheter placed to vacuum bottle suction. Total 5 liters of very cloudy yellow fluid aspirated. Patient tolerated procedure well, without immediate complication. Findings: Followup sonography demonstrates a small amount of residual fluid Impression: Successful ultrasound-guided paracentesis, yielding 5 liters of fluid
--- NOTE | 2020-08-12 16:27 | Diagnostic Imaging Report ---
Indication: Abnormal liver function tests Technique: Chu-scale and duplex images of the upper abdomen were obtained Comparison: No comparison sonograms. Reference made to abdomen pelvis CT dated 07/25/2020 Findings: Gallbladder is unremarkable, without stones, wall thickening, nor pericholecystic fluid. Sonographic Carvajal's sign is negative. Common bile duct measures 2 mm in diameter. No intrahepatic biliary ductal dilatation. Liver demonstrates coarsened echogenicity. It demonstrates surface nodularity and is somewhat atrophic. There is ascites fluid present. This has been described previously. Portal vein and hepatic veins are patent. Pancreas is unremarkable. Spleen is unremarkable. Left kidney measures 12.7 cm in length. Right kidney measures 11.7 cm length. Right kidney demonstrates mildly increased echogenicity. There is no hydronephrosis. No focal abnormality . Non-aneurysmal abdominal aorta . There is a pleural effusion on the left. Impression: Coarsened hepatic echogenicity and hepatic surface nodularity, consistent with cirrhosis, also previously described Negative for gallstones or dilated bile ducts Ascites, also previously reported Left pleural effusion
[2020-08-12] MEDS ORDERED: Tubing IV Secondary IV ONE (18:04)
--- NOTE | 2020-08-12 19:04 | Discharge Summary ---
Discharge Summary Hospital Course Date of Admission Aug 11, 2020 at 14:43 Date of Discharge Aug 12, 2020 at 18:05 Admitting Diagnosis Bacteremia HPI Cristo Beaulieu is a 45 year old male who was admitted on Aug 11, 2020 at 14:43 for Bacteremia Hospital Course -5439 Discharge Discharge Vital Signs Last Vital Signs Date Time Temp Pulse Resp B/P (MAP) Pulse Ox O2 Delivery O2 Flow Rate FiO2 08/12/20 16:00 96.8 80 19 108/71 (83) 97 08/12/20 09:00 Room Air Discharge Disposition Patient was discharged to Uriel Green MD Aug 12, 2020 19:04
--- NOTE | 2020-08-12 21:45 | History and Physical Report ---
DATE OF ADMISSION: 08/11/2020 CHIEF COMPLAINT: Abdominal distention. HISTORY OF PRESENT ILLNESS: This is a 45-year-old gentleman with past medical history significant for alcoholism with history of alcoholic liver cirrhosis with recurrent ascites, who presented to the emergency department complaining of abdominal distention requiring for abdominal paracentesis. He has been receiving abdominal paracentesis frequently. He denies any fever, chills, nausea, vomiting, or diarrhea. He denies any loss of consciousness or fall. Shortly after initial evaluation in the emergency department, patient was admitted to the hospital with abdominal distention, most likely due to the recurrent ascites. PAST MEDICAL HISTORY/PAST SURGICAL HISTORY: Significant for alcoholic liver cirrhosis with chronic ascites with history of alcoholism. MEDICATIONS AT HOME: Please refer to medication reconciliation. ALLERGIES: No known drug allergies. SOCIAL HISTORY: Ex-drinker. No substance abuse. FAMILY HISTORY: Noncontributory. REVIEW OF SYSTEMS: Mostly as above. PHYSICAL EXAMINATION: VITAL SIGNS: On admission, temperature 98.2, pulse of 78, respirations 18, and blood pressure 154/73. GENERAL: Patient is awake, responsive, in no acute distress. HEAD AND NECK: Pupils are equal and reactive to light. Extraocular movements intact. Neck was supple. No JVD. LUNGS: Good air entry. No wheezing or rales. Decreased air in the bases. HEART: S1, S2. Regular rhythm. No murmurs or gallops. ABDOMEN: Soft. Very distended with umbilical hernia was noted. No rebound tenderness. Positive fluid shift. EXTREMITIES: No cyanosis, clubbing, or edema. NEUROLOGIC: Cranial nerves II through XII grossly intact. Motor is 5/5 in all extremities. Gait is intact. RECTAL: Refused and deferred. GENITOURINARY: Refused and deferred. PSYCHIATRIC: Mood and affect is intact. LABORATORY DATA: On admission from the emergency department, WBC of 4.1, hemoglobin 8.5, hematocrit 26, platelets 120. Sodium 125, potassium 4.4, chloride 96, bicarb 18, BUN 14, creatinine 1.2, calcium 7.8. Total bilirubin of 1.4, direct bilirubin of 0.7, AST of 135, ALT of 44, alkaline phosphatase was 72. Albumin is 2.3. PT of 15, INR 1.2, PTT of 29. Urinalysis negative. ASSESSMENT: 1. Abdominal ascites, recurrent. 2. Alcoholic liver cirrhosis. 3. Hyponatremia. 4. Thrombocytopenia. 5. History of alcohol abuse. PLAN: Admit patient to monitored unit. We will follow up laboratory in the morning. Schedule for ultrasound-guided abdominal paracentesis. Code status is Full Code. DVT prophylaxis, heparin subcutaneous. We will follow up with the cultures. Broad-spectrum antibiotic with cefepime and vancomycin. Follow up with Dr. Moon from Pulmonary Critical Care and Dr. Ashley from Infectious Disease. Uriel Green M.D. DR: BOAZ JOB#: [id number] CC:
--- NOTE | 2020-08-12 22:00 | Discharge Summary ---
DATE OF ADMISSION: 08/11/2020 DATE OF DISCHARGE: 08/12/2020 HISTORY/HOSPITAL COURSE: This is a 45-year-old gentleman with past medical history significant for alcohol abuse with alcoholic liver cirrhosis with recurrent ascites, who presented to the emergency department complaining about abdominal distention. Shortly after initial evaluation, the patient was admitted to the hospital with abdominal distention, possible due to recurrent ascites and possible subacute bacterial peritonitis. Throughout the hospital course, the patient was consulted with Dr. Ashley as well as Dr. Moon from Pulmonary Critical Care. The patient started on broad-spectrum antibiotics with vancomycin and cefepime, underwent abdominal paracentesis with 5 liters of fluid was removed. The patient's status gradually improved. The patient insisted that he wants to go home. I advised the patient to stay in the hospital for further therapy, antibiotic therapy. However, he insisted that he wants to go home and subsequently left the hospital. I advised the patient if the status has not improved, he needs to come back to the hospital immediately. FINAL DIAGNOSES: 1. Abdominal distention, most likely secondary to ascites, possible subacute bacterial peritonitis. 2. History of alcoholic liver cirrhosis. 3. Alcoholism. 4. Hyponatremia. 5. Thrombocytopenia. 6. Abnormal liver function, most likely secondary to liver cirrhosis. 7. Anemia MEDICATIONS ON DISCHARGE: Continue home medication. ACTIVITY: As tolerated. DIET: Regular diet. The patient was advised that if his status is not improving, he needs to come to the nearest hospital or contact my office immediately. I again advised him to stay in the hospital, but he declined, he wants to leave the hospital and he wants to go home. Uriel Green M.D. DR: BEKAH JOB#: [id number] CC:
== END 2020-08-12 18:05 | disposition home or self-care (01) | DRG 280 ==
LOC: EMR 11:20 → 2E 14:43 → EDBEDREQ 16:10
PROC: 0W9G3ZZ Drainage of Peritoneal Cavity, Percutaneous Approach (ICD-10-PCS; principal; 2020-08-12)
DX: K70.31 Alcoholic cirrhosis of liver with ascites (principal); K65.9 Peritonitis, unspecified; D61.818 Other pancytopenia; E87.1 Hypo-osmolality and hyponatremia; F10.20 Alcohol dependence, uncomplicated
CPT/HCPCS: 36415; 76700; 76942; 80053; 81003; 82248; 82550; 82553; 83605; 85025; 85610; 85730; 86850; 86900; 86901; 87040; 87081; 88104; 93005; 96365; 99285; J2405; J7030

== ENCOUNTER 2020-09-13 11:40 | Inpatient (IN) | payer MEDICAID ==
[~2020-09-13] VITALS: Ht 157.5 cm; Wt 79.4 kg
[2020-09-13 11:58] VITALS: BP 107/56
[2020-09-13 12:27] LABS: HEMATOCRIT 24.1 % (42.0-52.0); HEMOGLOBIN 7.6 G/DL (14.2-18.0); MEAN CORPUSCULAR VOLUME 92 FL (80-99); PLATELET COUNT 100 K/UL (150-450); RED BLOOD COUNT 2.61 M/UL (4.70-6.10); RED CELL DISTRIBUTION WIDTH 16.2 % (11.6-14.8)
[2020-09-13 12:32] LABS: ANION GAP 9 mmol/L (5-15); BLOOD UREA NITROGEN 8 mg/dL (7-18); CALCIUM 7.4 MG/DL (8.5-10.1); CARBON DIOXIDE 21 MMOL/L (21-32); CHLORIDE 96 MMOL/L (98-107); POTASSIUM 4.3 MMOL/L (3.5-5.1); SODIUM 126 MMOL/L (136-145)
[2020-09-13 12:37] LABS: AMMONIA 90 umol/L (11-32)
[2020-09-13 12:43] LABS: ALANINE AMINOTRANSFERASE 50 U/L (12-78); ALBUMIN 2.1 G/DL (3.4-5.0); ALBUMIN/GLOBULIN RATIO 0.4 (1.0-2.7); ALKALINE PHOSPHATASE 173 U/L (46-116); ASPARTATE AMINO TRANSFERASE 144 U/L (15-37); BILIRUBIN,TOTAL 1.2 MG/DL (0.2-1.0)
[2020-09-13 12:56] LABS: INR 1.3 (0.9-1.1)
[2020-09-13 13:09] LABS: BILIRUBIN,DIRECT 0.7 MG/DL (0.0-0.3)
[2020-09-13] MEDS ORDERED: Lactulose 20gm/30ml UDC ORAL ONE (13:30)
[2020-09-13] MEDS ORDERED: Milk of Magnesia 30ml Ud ORAL PRN (14:00)
[2020-09-13] MEDS ORDERED: Mylanta II UD 30ml ORAL PRN (14:00)
[2020-09-13] MEDS ORDERED: LORazepam 1mg tab ORAL PRN (14:00)
--- NOTE | 2020-09-13 14:05 | Consultation ---
History of Present Illness General Date patient seen: Sep 13, 2020 Reason for Hospitalization: General Complaint Present Illness HPI 45-year-old male with known liver insufficiency presents [facility] complaining of worsening abdominal pain and distention. Prior admitted similar events required paracentesis lots of fluid removed significant ascites. Currently afebrile hemodynamic stable complaining of cramping pain from distention. On examination fluid-filled abdomen identified. Surgery called to eval and assist with care. Patient seen, patient evaluated, chart reviewed. No nausea vomiting fever chills. States he has not drank in for some time now. States he is hungry. Able to ambulate. Has never been this distended prior. Understands he needed para Allergies: Coded Allergies: No Known Allergies (Unverified , 05/24/20) COVID-19 Screening Contact w/high risk pt: No Experienced COVID-19 symptoms?: No Medication History No Active Prescriptions or Reported Meds Patient History History Provided By: Patient, Medical Record, PMD Healthcare decision maker Resuscitation status Advanced Directive on File Past Medical/Surgical History Past Medical/Surgical History: (1) Anemia (2) Elevated lipase (3) Pancreatitis (4) Hepatic encephalopathy (5) Hyponatremia (6) Bacteremia (7) Alcoholic cirrhosis of liver with ascites Review of Systems Review of Symptoms General ROS: no weight loss or fever Psychological ROS: no depression or mood changes, no memory loss Ophthalmic ROS: no visual changes or eye irritation ENT ROS: no nasal congestion, hearing loss, dizziness Allergy and Immunology ROS: no allergic symptoms or urticaria Hematological and Lymphatic ROS: no swollen glands, unusual bleeding or bruising Endocrine ROS: no polyuria, polydipsia, weight changes, temperature intolerance Respiratory ROS: no cough, shortness of breath, or wheezing Cardiovascular ROS: no chest pain or dyspnea on exertion Gastrointestinal ROS: + abdominal pain, bright red blood in stool. Musculoskeletal ROS: no myalgias or arthralgias Neurological ROS: no TIA or stroke symptoms Dermatological ROS: no new or changing skin lesions, rashes or pruritis Physical Exam Physical Exam General appearance: alert, cooperative, no distress, appears stated age Head: Normocephalic, without obvious abnormality, atraumatic Eyes: conjunctivae/corneas clear. PERRL, EOM's intact. Fundi benign Throat: Lips, mucosa, and tongue normal. Teeth and gums normal Neck: supple, symmetrical, trachea midline, no adenopathy, thyroid: not enlarged, symmetric, no tenderness/mass/nodules, no carotid bruit and no JVD Lungs: clear to auscultation bilaterally Heart: regular rate and rhythm, S1, S2 normal, no murmur, click, rub or gallop Abdomen: soft, non-tender. Bowel sounds normal. No masses, no organomegaly fluid distended Extremities: extremities normal, atraumatic, no cyanosis or edema Pulses: 2+ and symmetric Skin: Skin color, texture, turgor normal. No rashes or lesions Neurologic: Grossly normal Last 24 Hour Vital Signs Date Time Temp Pulse Resp B/P (MAP) Pulse Ox O2 Delivery O2 Flow Rate FiO2 09/13/20 11:58 98.1 117 20 107/56 98 Room Air 09/13/20 11:58 117 20 09/13/20 11:44 98.1 117 20 107/56 (73) 98 Laboratory Tests Test 09/13/20 11:55 09/13/20 13:35 White Blood Count 4.0 K/UL (4.8-10.8) L Red Blood Count 2.61 M/UL (4.70-6.10) L Hemoglobin 7.6 G/DL (14.2-18.0) L Hematocrit 24.1 % (42.0-52.0) L Mean Corpuscular Volume 92 FL (80-99) Mean Corpuscular Hemoglobin 29.0 PG (27.0-31.0) Mean Corpuscular Hemoglobin Concent 31.4 G/DL (32.0-36.0) L Red Cell Distribution Width 16.2 % (11.6-14.8) H Platelet Count 100 K/UL (150-450) L Mean Platelet Volume 6.7 FL (6.5-10.1) Neutrophils (%) (Auto) % (45.0-75.0) Lymphocytes (%) (Auto) % (20.0-45.0) Monocytes (%) (Auto) % (1.0-10.0) Eosinophils (%) (Auto) % (0.0-3.0) Basophils (%) (Auto) % (0.0-2.0) Differential Total Cells Counted 100 Neutrophils % (Manual) 80 % (45-75) H Lymphocytes % (Manual) 7 % (20-45) L Monocytes % (Manual) 11 % (1-10) H Eosinophils % (Manual) 2 % (0-3) Basophils % (Manual) 0 % (0-2) Band Neutrophils 0 % (0-8) Platelet Estimate Decreased L Platelet Morphology Normal Hypochromasia 2+ Anisocytosis 1+ Prothrombin Time 13.9 SEC (9.30-11.50) H Prothromb Time International Ratio 1.3 (0.9-1.1) H Activated Partial Thromboplast Time 30 SEC (23-33) Sodium Level 126 MMOL/L (136-145) L Potassium Level 4.3 MMOL/L (3.5-5.1) Chloride Level 96 MMOL/L (98-107) L Carbon Dioxide Level 21 MMOL/L (21-32) Anion Gap 9 mmol/L (5-15) Blood Urea Nitrogen 8 mg/dL (7-18) Creatinine 1.0 MG/DL (0.55-1.30) Estimat Glomerular Filtration Rate > 60 mL/min (>60) Glucose Level 127 MG/DL (74-106) H Calcium Level 7.4 MG/DL (8.5-10.1) L Total Bilirubin 1.2 MG/DL (0.2-1.0) H Direct Bilirubin 0.7 MG/DL (0.0-0.3) H Aspartate Amino Transf (AST/SGOT) 144 U/L (15-37) H Alanine Aminotransferase (ALT/SGPT) 50 U/L (12-78) Alkaline Phosphatase 173 U/L (46-116) H Ammonia 90 umol/L (11-32) H Total Protein 7.1 G/DL (6.4-8.2) Albumin 2.1 G/DL (3.4-5.0) L Globulin 5.0 g/dL Albumin/Globulin Ratio 0.4 (1.0-2.7) L Lipase 385 U/L (73-393) Urine Color Pending Urine Appearance Pending Urine pH Pending Urine Specific [place] Pending Urine Protein Pending Urine Glucose (UA) Pending Urine Ketones Pending Urine Blood Pending Urine Nitrite Pending Urine Bilirubin Pending Urine Urobilinogen Pending Urine Leukocyte Esterase Pending Height (Feet): 5 Height (Inches): 2.00 Weight (Pounds): 175 Medications Current Medications Medications (Trade) Dose Ordered Sig/Desirae Route PRN Reason Start Time Stop Time Status Last Admin Dose Admin Sodium Chloride 1,000 ml @ 999 mls/hr Q1H1M ONCE IV 09/13/20 13:30 09/13/20 14:30 09/13/20 13:31 Assessment/Plan Problem List: (1) Abdominal pain Assessment & Plan: 45M abd pain distended abdomen with cramping pain worsening over last few days no n/v/f/c labs noted on exam significant distention fluid filled hx etoh hx liver insufficiency admit US paracentesis gi eval no acute surgical intervention planned okay for diet will follow with recs thank you ICD Codes: R10.9 - Unspecified abdominal pain SNOMED: 04168782 (2) Hepatic encephalopathy ICD Codes: K72.90 - Hepatic failure, unspecified without coma SNOMED: 87820789 (3) Anemia ICD Codes: D64.9 - Anemia, unspecified SNOMED: 506013798 (4) Bacteremia ICD Codes: R78.81 - Bacteremia SNOMED: 2129565 (5) Hyponatremia ICD Codes: E87.1 - Hypo-osmolality and hyponatremia SNOMED: 20408532 (6) Pancreatitis ICD Codes: K85.90 - Acute pancreatitis without necrosis or infection, unspecified SNOMED: 39568828 (7) Alcoholic cirrhosis of liver with ascites ICD Codes: K70.31 - Alcoholic cirrhosis of liver with ascites SNOMED: 520299108, 789830636 (8) Elevated lipase ICD Codes: R74.8 - Abnormal levels of other serum enzymes SNOMED: 811007975 Ervin Pinon Sep 13, 2020 14:05
[2020-09-13 14:14] LABS: APPEARANCE,URINE CLEAR; BILIRUBIN, URINE NEGATIVE (NEGATIVE); GLUCOSE, URINE (UA) NEGATIVE (NEGATIVE); KETONES,URINE 1+ (NEGATIVE); LEUKOCYTE ESTERASE ,URINE 1+ (NEGATIVE); NITRITE,URINE NEGATIVE (NEGATIVE); PH,URINE 5 (4.5-8.0); PROTEIN,URINE 2+ (NEGATIVE); UROBILINOGEN,URINE 1 MG/DL (0.0-1.0)
[2020-09-13 14:15] LABS: COLOR,URINE YELLOW
--- NOTE | 2020-09-13 14:16 | Emergency Room Report ---
History of Present Illness General Chief Complaint: General Complaint Source: Patient, Medical Record, PMD Present Illness HPI 45-year-old male presents with abdominal distention. History of cirrhosis. States that he needs to have his fluid taken out. Denies pain. Denies nausea o r vomiting. Denies fevers or chills. Has been here previously to have his fluid removed. No other aggravating relieving factors. 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 Patient History Past Medical History: other - Cirrhosis Past Surgical History: none Pertinent Family History: none Social History: Denies: smoking, alcohol use, drug use Immunizations: UTD Reviewed Nursing Documentation: PMH: Agreed; PSxH: Agreed Nursing Documentation-PMH Past Medical History: No History, Except For Hx Cardiac Problems: No - liver failure Hx Cancer: No Hx Gastrointestinal Problems: Yes - abdominal hernia Hx Neurological Problems: No Review of Systems All Other Systems: negative except mentioned in HPI Physical Exam Vital Signs Date Time Temp Pulse Resp B/P (MAP) Pulse Ox O2 Delivery O2 Flow Rate FiO2 09/13/20 11:44 98.1 117 20 107/56 (73) 98 09/13/20 11:58 Room Air Sp02 EP Interpretation: reviewed, normal General Appearance: no apparent distress, alert, GCS 15, non-toxic Head: normocephalic, atraumatic Eyes: bilateral eye normal inspection, bilateral eye PERRL, bilateral eye Scleral Injection ENT: hearing grossly normal, normal pharynx, no angioedema, normal voice Neck: full range of motion, supple/symm/no masses Respiratory: chest non-tender, lungs clear, normal breath sounds, speaking full sentences Cardiovascular #1: regular rate, rhythm, no edema Cardiovascular #2: 2+ carotid (R), 2+ carotid (L), 2+ radial (R), 2+ radial (L), 2+ dorsalis pedis (R), 2+ dorsalis pedis (L) Gastrointestinal: normal bowel sounds, soft, non-distended, distended Rectal: deferred Genitourinary: normal inspection, no CVA tenderness Musculoskeletal: back normal, normal range of motion, gait/station normal, non- tender Neurologic: alert, motor strength/tone normal, oriented x3, sensory intact, responsive, speech normal Psychiatric: judgement/insight normal, memory normal, mood/affect normal, no suicidal/homicidal ideation Reflexes: 3+ bicep (R), 3+ bicep (L), 3+ tricep (R), 3+ tricep (L), 3+ knee (R), 3+ knee (L) Skin: other - See nursing notes Lymphatic: no adenopathy Procedures Critical Care Time Critical Care Time i. I feel this is a highly complex case requiring extensive working including EKG/Rhythm strip, Xray/CT/US, Blood/urine lab work, repeat exams while in ED, and administration of strong opiates/narcotics for pain control, admission to hospital or close patient follow up. Total time: 30 min bedside evaluation and treatment excludes procedures (EKG). Reason for critical care: Hyponatremia, anemia, hepatic encephalopathy, ascites Possible complications: hypotension, hypertension, NH, shock, arrhythmias, metabolic acidosis, end organ damage, respiratory failure. Interventions: Labs, IV fluids, consultation with surgery, blood transfusion, lactulose Course: Patient presenting with abdominal distention. History of cirrhosis. Ammonia level elevated. Hemoglobin 7.6, sodium 126. Vitals stable. Blood transfusion ordered. Paracentesis will be ordered. Lactulose given. IV fluids given. Consultations: nursing staff, EMS, family Performed by: Dr Mckinley Tolerated well condition = serious j. because of unstable vital signs this patient had a condition that could potentially threaten life or limb. I feel this is a critical patient who requ ired my full attention while patient was considered critical. Total Critical Care Time excluding procedures was greater than 35 minutes Medical Decision Making Diagnostic Impression: Primary Impression: Anemia Qualified Codes: D64.9 - Anemia, unspecified Additional Impressions: Alcoholic cirrhosis of liver with ascites Hepatic encephalopathy Hyponatremia ER Course Hospital Course 45-year-old male presents for abdominal distention. History of cirrhosis Differential diagnoses include: hepatic encephalopathy, cirrhosis, anemia Clinical course Patient placed on stretcher. After initial history and physical I ordered labs, IVFs Labs- hemoglobin/hematocrit 7.6/24.1, leukopenia noted, Na 126, ammonia, 90, LFTs elevated given IV fluids. Blood transfusion ordered. Lactulose given. Will require ultrasound-guided paracentesis patient admitted to Dr meneses. Diagnosis - anemia, alcoholic cirrhosis of liver with ascites, hepatic encephalopathy, hyponatremia Admitted to floor in serious condition Laboratory Tests Test 09/13/20 11:55 09/13/20 13:35 White Blood Count 4.0 K/UL (4.8-10.8) L Red Blood Count 2.61 M/UL (4.70-6.10) L Hemoglobin 7.6 G/DL (14.2-18.0) L Hematocrit 24.1 % (42.0-52.0) L Mean Corpuscular Volume 92 FL (80-99) Mean Corpuscular Hemoglobin 29.0 PG (27.0-31.0) Mean Corpuscular Hemoglobin Concent 31.4 G/DL (32.0-36.0) L Red Cell Distribution Width 16.2 % (11.6-14.8) H Platelet Count 100 K/UL (150-450) L Mean Platelet Volume 6.7 FL (6.5-10.1) Neutrophils (%) (Auto) % (45.0-75.0) Lymphocytes (%) (Auto) % (20.0-45.0) Monocytes (%) (Auto) % (1.0-10.0) Eosinophils (%) (Auto) % (0.0-3.0) Basophils (%) (Auto) % (0.0-2.0) Differential Total Cells Counted 100 Neutrophils % (Manual) 80 % (45-75) H Lymphocytes % (Manual) 7 % (20-45) L Monocytes % (Manual) 11 % (1-10) H Eosinophils % (Manual) 2 % (0-3) Basophils % (Manual) 0 % (0-2) Band Neutrophils 0 % (0-8) Platelet Estimate Decreased L Platelet Morphology Normal Hypochromasia 2+ Anisocytosis 1+ Prothrombin Time 13.9 SEC (9.30-11.50) H Prothromb Time International Ratio 1.3 (0.9-1.1) H Activated Partial Thromboplast Time 30 SEC (23-33) Sodium Level 126 MMOL/L (136-145) L Potassium Level 4.3 MMOL/L (3.5-5.1) Chloride Level 96 MMOL/L (98-107) L Carbon Dioxide Level 21 MMOL/L (21-32) Anion Gap 9 mmol/L (5-15) Blood Urea Nitrogen 8 mg/dL (7-18) Creatinine 1.0 MG/DL (0.55-1.30) Estimat Glomerular Filtration Rate > 60 mL/min (>60) Glucose Level 127 MG/DL (74-106) H Calcium Level 7.4 MG/DL (8.5-10.1) L Total Bilirubin 1.2 MG/DL (0.2-1.0) H Direct Bilirubin 0.7 MG/DL (0.0-0.3) H Aspartate Amino Transf (AST/SGOT) 144 U/L (15-37) H Alanine Aminotransferase (ALT/SGPT) 50 U/L (12-78) Alkaline Phosphatase 173 U/L (46-116) H Ammonia 90 umol/L (11-32) H Total Protein 7.1 G/DL (6.4-8.2) Albumin 2.1 G/DL (3.4-5.0) L Globulin 5.0 g/dL Albumin/Globulin Ratio 0.4 (1.0-2.7) L Lipase 385 U/L (73-393) Urine Color Pending Urine Appearance Pending Urine pH Pending Urine Specific [place] Pending Urine Protein Pending Urine Glucose (UA) Pending Urine Ketones Pending Urine Blood Pending Urine Nitrite Pending Urine Bilirubin Pending Urine Urobilinogen Pending Urine Leukocyte Esterase Pending Last Vital Signs Date Time Temp Pulse Resp B/P (MAP) Pulse Ox O2 Delivery O2 Flow Rate FiO2 09/13/20 11:58 98.1 117 20 107/56 98 Room Air Status: improved Disposition: ADMITTED INPATIENT Condition: Serious Scripts No Active Prescriptions or Reported Meds Referrals: NOT CHOSEN IPA/,REFERRING (PCP) Vasile Mckinley MD Sep 13, 2020 14:16
[2020-09-13 14:30] VITALS: BP 128/79
--- NOTE | 2020-09-13 14:41 | Consultation ---
Consult Note Consult Note asked to ines [place] for hyponatremia Chief Complaint: General Complaint Source: Patient, Medical Record, PMD Present Illness HPI 45-year-old male presents with abdominal distention. History of cirrhosis. States that he needs to have his fluid taken out. Denies pain. Denies nausea or vomiting. Denies fevers or chills. Has been here previously to have his fluid removed. No other aggravating relieving factors. 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 Patient History Past Medical History: other - Cirrhosis Past Surgical History: none Pertinent Family History: none Social History: Denies: smoking, alcohol use, drug use Immunizations: UTD Reviewed Nursing Documentation: PMH: Agreed; PSxH: Agreed Nursing Documentation-PMH Past Medical History: No History, Except For Hx Cardiac Problems: No - liver failure Hx Cancer: No Hx Gastrointestinal Problems: Yes - abdominal hernia Hx Neurological Problems: No Vital Signs Date Time Temp Pulse Resp B/P (MAP) Pulse Ox O2 Delivery O2 Flow Rate FiO2 09/13/20 11:44 98.1 117 20 107/56 (73) 98 09/13/20 11:58 Room Air Physical Exam : Gen: NAD, weak HEENT: NCAT Pulm: BL chest rise on RA, decreased breath sound bases Abd: Very distended, +fluid wave, umbilical hernia, minimally TTP Ext: No c/c/e Skin: No visible rashes Neuro: Awake, alert, interactive . Assessment/Plan Impression: Patient presents with liver failure. Renal parameters are stable. Low sodium is as a result of hypoalbuminemia and third spacing. Patient is severely anemic. Suggestion isotonic fluid administration with slow diuresis Muro catheter Monitor intake and output Anemia work-up GI support Monitor renal parameters and electrolytes Avoid nephrotoxic's Per orders True Smith MD Sep 13, 2020 14:41
[2020-09-13] MEDS ORDERED: D5NS 1,000 ML IV SCH (15:00)
[2020-09-13] MEDS: Midodrine 10mg tab ORAL SCH ×2 (15:14→17:33)
[2020-09-13] MEDS: Morphine Sulfate 2mg/ml Inj(IV/IM USE ONLY) IVP PRN (15:14)
[2020-09-13 16:00] VITALS: BP 108/65
[2020-09-13 20:00] VITALS: BP 110/63
[2020-09-13] MEDS: Docusate 100mg cap ORAL SCH (21:00)
[2020-09-14] VITALS: BP 115/65
[2020-09-14 04:00] VITALS: BP 110/67
[2020-09-14 06:10] LABS: HEMATOCRIT 21.5 % (42.0-52.0); HEMOGLOBIN 7.2 G/DL (14.2-18.0); MEAN CORPUSCULAR VOLUME 87 FL (80-99); PLATELET COUNT 89 K/UL (150-450); RED BLOOD COUNT 2.46 M/UL (4.70-6.10)
[2020-09-14 06:31] LABS: AMMONIA 91 umol/L (11-32); INR 1.3 (0.9-1.1)
[2020-09-14 06:44] LABS: % IRON SATURATION 15 % (15-50); CREATINE KINASE 410 U/L (26-308); GAMMA GLUTAMYL TRANSPEPTIDASE 267 U/L (5-85); IRON 40 ug/dL (50-175); PHOSPHORUS 3.3 MG/DL (2.5-4.9); TOTAL IRON BINDING CAPACITY 259 ug/dL (250-450)
[2020-09-14 06:55] LABS: ALANINE AMINOTRANSFERASE 44 U/L (12-78); ALBUMIN/GLOBULIN RATIO 0.4 (1.0-2.7); ALKALINE PHOSPHATASE 148 U/L (46-116); ASPARTATE AMINO TRANSFERASE 124 U/L (15-37); BILIRUBIN,TOTAL 1.9 MG/DL (0.2-1.0); BLOOD UREA NITROGEN 6 mg/dL (7-18); CALCIUM 7.3 MG/DL (8.5-10.1); CHLORIDE 99 MMOL/L (98-107); CHOLESTEROL 102 MG/DL (< 200); CREATININE 0.9 MG/DL (0.55-1.30); FERRITIN 35 NG/ML (8-388); HDL CHOLESTEROL 55 MG/DL (40-60); SODIUM 128 MMOL/L (136-145); TRIGLYCERIDES 36 MG/DL (30-150)
--- NOTE | 2020-09-14 07:12 | Consultation ---
History of Present Illness General Chief Complaint: General Complaint Present Illness Allergies: Coded Allergies: No Known Allergies (Unverified , 05/24/20) Medication History No Active Prescriptions or Reported Meds Patient History Healthcare decision maker Resuscitation status Advanced Directive on File Physical Exam Last 24 Hour Vital Signs Date Time Temp Pulse Resp B/P (MAP) Pulse Ox O2 Delivery O2 Flow Rate FiO2 09/14/20 04:00 97.6 83 20 110/67 (81) 99 09/14/20 00:00 97.6 87 20 115/65 (82) 98 09/13/20 21:00 Room Air 09/13/20 20:00 97.8 92 20 110/63 (79) 99 09/13/20 17:47 Room Air 09/13/20 16:00 98.2 107 20 108/65 (79) 100 09/13/20 14:30 98.6 115 20 128/79 (95) 100 09/13/20 14:10 98.0 101 20 105/65 99 Room Air 09/13/20 11:58 98.1 117 20 107/56 98 Room Air 09/13/20 11:58 117 20 09/13/20 11:44 98.1 117 20 107/56 (73) 98 Intake and Output 09/13/20 09/14/20 19:00 07:00 Intake Total 350 ml Output Total 0 ml Balance 0 ml 350 ml Intake Oral 350 ml Output Urine Total 0 ml # Voids 3 Laboratory Tests Test 09/13/20 11:55 09/13/20 13:35 09/14/20 01:40 09/14/20 05:30 White Blood Count 4.0 K/UL (4.8-10.8) L 3.0 K/UL (4.8-10.8) L Red Blood Count 2.61 M/UL (4.70-6.10) L 2.46 M/UL (4.70-6.10) L Hemoglobin 7.6 G/DL (14.2-18.0) L 7.2 G/DL (14.2-18.0) L Hematocrit 24.1 % (42.0-52.0) L 21.5 % (42.0-52.0) L Mean Corpuscular Volume 92 FL (80-99) 87 FL (80-99) Mean Corpuscular Hemoglobin 29.0 PG (27.0-31.0) 29.2 PG (27.0-31.0) Mean Corpuscular Hemoglobin Concent 31.4 G/DL (32.0-36.0) L 33.5 G/DL (32.0-36.0) Red Cell Distribution Width 16.2 % (11.6-14.8) H 17.0 % (11.6-14.8) H Platelet Count 100 K/UL (150-450) L 89 K/UL (150-450) L Mean Platelet Volume 6.7 FL (6.5-10.1) 6.7 FL (6.5-10.1) Neutrophils (%) (Auto) % (45.0-75.0) % (45.0-75.0) Lymphocytes (%) (Auto) % (20.0-45.0) % (20.0-45.0) Monocytes (%) (Auto) % (1.0-10.0) % (1.0-10.0) Eosinophils (%) (Auto) % (0.0-3.0) % (0.0-3.0) Basophils (%) (Auto) % (0.0-2.0) % (0.0-2.0) Differential Total Cells Counted 100 Neutrophils % (Manual) 80 % (45-75) H Pending Lymphocytes % (Manual) 7 % (20-45) L Pending Monocytes % (Manual) 11 % (1-10) H Eosinophils % (Manual) 2 % (0-3) Basophils % (Manual) 0 % (0-2) Band Neutrophils 0 % (0-8) Platelet Estimate Decreased L Pending Platelet Morphology Normal Pending Hypochromasia 2+ Anisocytosis 1+ Prothrombin Time 13.9 SEC (9.30-11.50) H 14.2 SEC (9.30-11.50) H Prothromb Time International Ratio 1.3 (0.9-1.1) H 1.3 (0.9-1.1) H Activated Partial Thromboplast Time 30 SEC (23-33) 27 SEC (23-33) Sodium Level 126 MMOL/L (136-145) L Pending Potassium Level 4.3 MMOL/L (3.5-5.1) Pending Chloride Level 96 MMOL/L (98-107) L Pending Carbon Dioxide Level 21 MMOL/L (21-32) Pending Anion Gap 9 mmol/L (5-15) Blood Urea Nitrogen 8 mg/dL (7-18) Pending Creatinine 1.0 MG/DL (0.55-1.30) Pending Estimat Glomerular Filtration Rate > 60 mL/min (>60) Pending Glucose Level 127 MG/DL (74-106) H Pending Calcium Level 7.4 MG/DL (8.5-10.1) L Pending Total Bilirubin 1.2 MG/DL (0.2-1.0) H Pending Direct Bilirubin 0.7 MG/DL (0.0-0.3) H Aspartate Amino Transf (AST/SGOT) 144 U/L (15-37) H Pending Alanine Aminotransferase (ALT/SGPT) 50 U/L (12-78) Pending Alkaline Phosphatase 173 U/L (46-116) H Pending Ammonia 90 umol/L (11-32) H 91 umol/L (11-32) H Total Protein 7.1 G/DL (6.4-8.2) Pending Albumin 2.1 G/DL (3.4-5.0) L Pending Globulin 5.0 g/dL Pending Albumin/Globulin Ratio 0.4 (1.0-2.7) L Lipase 385 U/L (73-393) 358 U/L (73-393) Urine Color Yellow Urine Appearance Clear Urine pH 5 (4.5-8.0) Urine Specific [place] 1.025 (1.005-1.035) Urine Protein 2+ (NEGATIVE) H Urine Glucose (UA) Negative (NEGATIVE) Urine Ketones 1+ (NEGATIVE) H Urine Blood Negative (NEGATIVE) Urine Nitrite Negative (NEGATIVE) Urine Bilirubin Negative (NEGATIVE) Urine Urobilinogen 1 MG/DL (0.0-1.0) H Urine Leukocyte Esterase 1+ (NEGATIVE) H Urine RBC 0-2 /HPF (0 - 0) H Urine WBC 2-4 /HPF (0 - 0) Urine Squamous Epithelial Cells Occasional /LPF Urine Bacteria Occasional /HPF (NONE) Urine Hyaline Casts 0-2 /LPF (NONE) H Urine Mucus Moderate /LPF (NONE/OCC) H Urine Osmolality 770 mOsm/kg (429-449) H Urine Random Sodium < 20 mmol/L (20-110) L Hemoglobin A1c Pending Uric Acid 4.5 MG/DL (2.6-7.2) Phosphorus Level 3.3 MG/DL (2.5-4.9) Magnesium Level 1.9 MG/DL (1.8-2.4) Iron Level 40 ug/dL (50-175) L Total Iron Binding Capacity 259 ug/dL (250-450) Percent Iron Saturation 15 % (15-50) Unsaturated Iron Binding 219 ug/dL (112-346) Ferritin Pending Gamma Glutamyl Transpeptidase 267 U/L (5-85) H Total Creatine Kinase 410 U/L (26-308) H C-Reactive Protein, Quantitative < 0.4 mg/dL (0.00-0.90) Pro-B-Type Natriuretic Peptide Pending Triglycerides Level Pending Cholesterol Level Pending LDL Cholesterol Pending HDL Cholesterol Pending Cholesterol/HDL Ratio Pending Vitamin B12 Level Pending Folate Pending Thyroid Stimulating Hormone (TSH) Pending Microbiology Date/Time Source Procedure Growth Status 09/13/20 14:00 Rectum Received Height (Feet): 5 Height (Inches): 2.00 Weight (Pounds): 175 Medications Current Medications Medications (Trade) Dose Ordered Sig/Desirae Route PRN Reason Start Time Stop Time Status Last Admin Dose Admin Acetaminophen (Tylenol) 650 mg Q4H PRN ORAL Temp >100.5 09/13/20 14:00 10/13/20 13:59 Al Hydroxide/Mg Hydroxide (Mylanta II) 30 ml Q6H PRN ORAL dyspepsia 09/13/20 14:00 10/13/20 13:59 Bisacodyl (Dulcolax) 10 mg HSPRN PRN RECTAL Constipation 09/13/20 14:00 12/12/20 13:59 Dextrose (Dextrose 50%) 25 ml Q30M PRN IV Hypoglycemia 09/13/20 14:00 12/12/20 13:59 Dextrose (Dextrose 50%) 50 ml Q30M PRN IV Hypoglycemia 09/13/20 14:00 12/12/20 13:59 Dextrose/Sodium Chloride 1,000 ml @ 50 mls/hr Q20H IV 09/13/20 15:00 10/13/20 14:59 09/13/20 15:14 Diphenhydramine HCl (Benadryl) 25 mg Q6H PRN ORAL Itching/Pruritis 09/13/20 14:00 10/13/20 13:59 Docusate Sodium (Colace) 100 mg EVERY 12 HOURS ORAL 09/13/20 21:00 10/13/20 20:59 Enoxaparin Sodium (Lovenox) 40 mg DAILY SUBQ 09/14/20 09:00 12/13/20 08:59 Famotidine (Pepcid I.v.) 20 mg Q12HR IVP 09/13/20 21:00 10/13/20 20:59 09/13/20 20:41 Iron Sucrose 100 mg/Sodium Chloride 60 ml @ 240 mls/hr BEDTIME IVPB 09/14/20 21:00 09/18/20 21:14 UNV Lorazepam (Ativan) 1 mg Q4H PRN ORAL For Anxiety 09/13/20 14:00 09/20/20 13:59 Magnesium Hydroxide (Mom) 30 ml HSPRN PRN ORAL Constipation 09/13/20 14:00 10/13/20 13:59 Midodrine (Pro-Amatine) 10 mg THREE TIMES A DAY ORAL 09/13/20 15:00 12/12/20 14:59 09/13/20 17:33 Morphine Sulfate (Morphine Sulfate) 2 mg EVERY 3 HOURS PRN IVP Moderate Pain (Pain Scale 4-6) 09/13/20 14:00 09/20/20 13:59 09/13/20 15:14 Ondansetron HCl (Zofran) 4 mg Q6H PRN IVP Nausea & Vomiting 09/13/20 14:00 10/13/20 13:59 09/13/20 15:30 Temazepam (Restoril) 15 mg HSPRN PRN ORAL Insomnia 09/13/20 14:00 09/20/20 13:59 09/13/20 20:42 Assessment/Plan Assessment/Plan: Hematology Consultation REQ : Syeda [place] DOS: RFC: Pancytopenia HPI 45-year-old male presents with abdominal distention. History of cirrhosis. States that he needs to have his fluid taken out. Denies pain. Denies nausea or vomiting. Denies fevers or chills. Has been here previously to have his fluid removed. No other aggravating relieving factors. 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 Patient History Past Medical History: other - Cirrhosis Past Surgical History: none Pertinent Family History: none Social History: Denies: smoking, alcohol use, drug use Immunizations: UTD Reviewed Nursing Documentation: PMH: Agreed; PSxH: Agreed Nursing Documentation-PMH Past Medical History: No History, Except For Hx Cardiac Problems: No - liver failure Hx Cancer: No Hx Gastrointestinal Problems: Yes - abdominal hernia Hx Neurological Problems: No Review of Systems All Other Systems: negative except mentioned in HPI PE General: no apparent distress, alert, GCS 15, non-toxic Head: normocephalic, atraumatic HEENT: hearing grossly normal, normal pharynx, no angioedema, normal voice Neck: full range of motion, supple/symm/no masses Respiratory: chest non-tender, lungs clear, normal breath sounds, speaking full sentences Cardiovascular: regular rate, rhythm, no edema Gastrointestinal: normal bowel sounds, soft, non-distended, distended Rectal: deferred Genitourinary: normal inspection, no CVA tenderness Musculoskeletal: back normal, normal range of motion, gait/station normal, non- tender Labs: noted Imaging: reviewed Assessment and Recs # Pancytopenia likely related to cirrhosis, reviewed prior ct and us of the abd --> get hepatitis and hiv panel --> correct coagulopathy as needed --> neupogen and plt transfusion prn --> wbc 3 --> hgb 7.2 --> plt 89 --> p smear has been reviewed for blasts --> anemia panel reviewed # Coagulopathy -- with elev markers --> correct as needed, pre surg # Alcoholic cirrhosis of liver with ascites --> rifax, lactulose as per gi # Hepatic encephalopathy -> stable # Hyponatremia --> per renal # Dvt ppx scds Appreciate consultation and dw Manolo Castle MD Sep 14, 2020 07:12
[2020-09-14 07:17] LABS: CARBON DIOXIDE 21 MMOL/L (21-32)
[2020-09-14 07:18] LABS: BILIRUBIN,DIRECT 1.1 MG/DL (0.0-0.3)
[2020-09-14 08:00] VITALS: BP 107/70
[2020-09-14] MEDS: Enoxaparin 40mg Inj SUBQ SCH (09:00)
[2020-09-14] MEDS: Midodrine 10mg tab ORAL SCH ×3 (09:00→18:17)
[2020-09-14] MEDS: Docusate 100mg cap ORAL SCH ×3 (09:00→18:16)
--- NOTE | 2020-09-14 09:02 | Neurology Progress Note ---
Interim History Interim History Interim History CHIEF COMPLAINT: weakness+ encephalopathy HPI 45 y/o M who presented to [facility] due to increased abdominal pain and swelling for about two days. The patient was diagnosed with ascites, hepatic encephalopathy, abdominal swelling, anemia, and hyponatremia, and adm itted to medical floor. Pt asks when he will have p- tap. Otherwise denies any numbness or tingly or weakness in the body. REVIEW OF SYSTEMS: Constitutional: denies chills /fever Eyes: denies diplopia ENT: denies dysphagia C.V.: denies chest pain Resp: denies dyspnea G.I.: denies diarrhea .: denies hematuria MSK: denies joint pain Integumentary: denies rash Neuro: denies imbalance Psychiatric: denies depression Endocrine: denies flushing Heme: denies bruising PAST MEDICAL HISTORY: hepatic encephalopathy, pancreatitis,alcoholic cirrhosis, anemia, and ascites. PAST SURGICAL HISTORY: Denies. ALLERGIES: Denies. MEDICATIONS: docusate sodium, famotidine, midodrine,diphenhydramine, temazepam, lorazepam, Zofran, magnesium, morphine, andlactulose. SOCIAL HISTORY: No smoking. Positive alcohol. No intravenous drugabuse. FAMILY HISTORY: Noncontributory. Review of Systems All Systems: reviewed and negative except above Objective Physical Exam Last Vital Signs Date Time Temp Pulse Resp B/P (MAP) Pulse Ox O2 Delivery O2 Flow Rate FiO2 09/14/20 04:00 97.6 83 20 110/67 (81) 99 09/13/20 21:00 Room Air Laboratory Tests Test 09/13/20 11:55 09/13/20 13:35 09/14/20 01:40 09/14/20 05:30 White Blood Count 4.0 K/UL (4.8-10.8) L 3.0 K/UL (4.8-10.8) L Red Blood Count 2.61 M/UL (4.70-6.10) L 2.46 M/UL (4.70-6.10) L Hemoglobin 7.6 G/DL (14.2-18.0) L 7.2 G/DL (14.2-18.0) L Hematocrit 24.1 % (42.0-52.0) L 21.5 % (42.0-52.0) L Mean Corpuscular Volume 92 FL (80-99) 87 FL (80-99) Mean Corpuscular Hemoglobin 29.0 PG (27.0-31.0) 29.2 PG (27.0-31.0) Mean Corpuscular Hemoglobin Concent 31.4 G/DL (32.0-36.0) L 33.5 G/DL (32.0-36.0) Red Cell Distribution Width 16.2 % (11.6-14.8) H 17.0 % (11.6-14.8) H Platelet Count 100 K/UL (150-450) L 89 K/UL (150-450) L Mean Platelet Volume 6.7 FL (6.5-10.1) 6.7 FL (6.5-10.1) Neutrophils (%) (Auto) % (45.0-75.0) % (45.0-75.0) Lymphocytes (%) (Auto) % (20.0-45.0) % (20.0-45.0) Monocytes (%) (Auto) % (1.0-10.0) % (1.0-10.0) Eosinophils (%) (Auto) % (0.0-3.0) % (0.0-3.0) Basophils (%) (Auto) % (0.0-2.0) % (0.0-2.0) Differential Total Cells Counted 100 100 Neutrophils % (Manual) 80 % (45-75) H 69 % (45-75) Lymphocytes % (Manual) 7 % (20-45) L 16 % (20-45) L Monocytes % (Manual) 11 % (1-10) H 11 % (1-10) H Eosinophils % (Manual) 2 % (0-3) 4 % (0-3) H Basophils % (Manual) 0 % (0-2) 0 % (0-2) Band Neutrophils 0 % (0-8) 0 % (0-8) Platelet Estimate Decreased L Decreased L Platelet Morphology Normal Normal Hypochromasia 2+ 2+ Anisocytosis 1+ 1+ Prothrombin Time 13.9 SEC (9.30-11.50) H 14.2 SEC (9.30-11.50) H Prothromb Time International Ratio 1.3 (0.9-1.1) H 1.3 (0.9-1.1) H Activated Partial Thromboplast Time 30 SEC (23-33) 27 SEC (23-33) Sodium Level 126 MMOL/L (136-145) L 128 MMOL/L (136-145) L Potassium Level 4.3 MMOL/L (3.5-5.1) 4.0 MMOL/L (3.5-5.1) Chloride Level 96 MMOL/L (98-107) L 99 MMOL/L (98-107) Carbon Dioxide Level 21 MMOL/L (21-32) 21 MMOL/L (21-32) Anion Gap 9 mmol/L (5-15) Blood Urea Nitrogen 8 mg/dL (7-18) 6 mg/dL (7-18) L Creatinine 1.0 MG/DL (0.55-1.30) 0.9 MG/DL (0.55-1.30) Estimat Glomerular Filtration Rate > 60 mL/min (>60) > 60 mL/min (>60) Glucose Level 127 MG/DL (74-106) H 91 MG/DL (74-106) Calcium Level 7.4 MG/DL (8.5-10.1) L 7.3 MG/DL (8.5-10.1) L Total Bilirubin 1.2 MG/DL (0.2-1.0) H 1.9 MG/DL (0.2-1.0) H Direct Bilirubin 0.7 MG/DL (0.0-0.3) H 1.1 MG/DL (0.0-0.3) H Aspartate Amino Transf (AST/SGOT) 144 U/L (15-37) H 124 U/L (15-37) H Alanine Aminotransferase (ALT/SGPT) 50 U/L (12-78) 44 U/L (12-78) Alkaline Phosphatase 173 U/L (46-116) H 148 U/L (46-116) H Ammonia 90 umol/L (11-32) H 91 umol/L (11-32) H Total Protein 7.1 G/DL (6.4-8.2) 6.6 G/DL (6.4-8.2) Albumin 2.1 G/DL (3.4-5.0) L 2.0 G/DL (3.4-5.0) L Globulin 5.0 g/dL 4.6 g/dL Albumin/Globulin Ratio 0.4 (1.0-2.7) L 0.4 (1.0-2.7) L Lipase 385 U/L (73-393) 358 U/L (73-393) Urine Color Yellow Urine Appearance Clear Urine pH 5 (4.5-8.0) Urine Specific [place] 1.025 (1.005-1.035) Urine Protein 2+ (NEGATIVE) H Urine Glucose (UA) Negative (NEGATIVE) Urine Ketones 1+ (NEGATIVE) H Urine Blood Negative (NEGATIVE) Urine Nitrite Negative (NEGATIVE) Urine Bilirubin Negative (NEGATIVE) Urine Urobilinogen 1 MG/DL (0.0-1.0) H Urine Leukocyte Esterase 1+ (NEGATIVE) H Urine RBC 0-2 /HPF (0 - 0) H Urine WBC 2-4 /HPF (0 - 0) Urine Squamous Epithelial Cells Occasional /LPF Urine Bacteria Occasional /HPF (NONE) Urine Hyaline Casts 0-2 /LPF (NONE) H Urine Mucus Moderate /LPF (NONE/OCC) H Urine Osmolality 770 mOsm/kg (429-449) H Urine Random Sodium < 20 mmol/L (20-110) L Hemoglobin A1c 5.2 % (4.3-6.0) Uric Acid 4.5 MG/DL (2.6-7.2) Phosphorus Level 3.3 MG/DL (2.5-4.9) Magnesium Level 1.9 MG/DL (1.8-2.4) Iron Level 40 ug/dL (50-175) L Total Iron Binding Capacity 259 ug/dL (250-450) Percent Iron Saturation 15 % (15-50) Unsaturated Iron Binding 219 ug/dL (112-346) Ferritin 35 NG/ML (8-388) Gamma Glutamyl Transpeptidase 267 U/L (5-85) H Total Creatine Kinase 410 U/L (26-308) H C-Reactive Protein, Quantitative < 0.4 mg/dL (0.00-0.90) Pro-B-Type Natriuretic Peptide 136 pg/mL (0-125) H Triglycerides Level 36 MG/DL (30-150) Cholesterol Level 102 MG/DL (< 200) LDL Cholesterol 40 mg/dL (<100) HDL Cholesterol 55 MG/DL (40-60) Cholesterol/HDL Ratio 1.9 (3.3-4.4) L Alpha Fetoprotein Pending Vitamin B12 Level 1249 PG/ML (193-986) H Folate 4.8 NG/ML (8.6-58.9) L Thyroid Stimulating Hormone (TSH) 2.846 uiU/mL (0.358-3.740) Hepatitis A IgM Antibody Pending Hepatitis B Surface Antigen Pending Hepatitis B Core IgM Antibody Pending Hepatitis C Antibody Pending HIV (1&2) Antibody Rapid Negative (NEGATIVE) General: well developed, well nourished, other - mild distress from abd pain Head: normocophalic, atraumatic Neck: no rigidity EENT: benign Neurologic Exam Mental Status: awake, alert, oriented x4, normal cognition Speech: normal speech, no dysarthia Language: normal language, no aphasia Cranial Nerve II: visual peralta Cranial Nerves III, IV, : EOMI, pupils Cranial Nerve V: normal facial sensations, masseters function normal Cranial Nerve VII: no facial asymmetry Cranial Nerve VIII: normal hearing, no nystagmus Cranial Nerve IX: normal palate elevation Cranial Nerve X: no voice hoarseness Cranial Nerve XI: SCM symmetric, trapezii function normal Cranial Nerve XII: tongue midline Motor System: normal muscle tone, strength 5/5, no involuntary movement, no muscle wasting, other - mild asterixis Sensory: normal light touch Coordination: other - mild tremor on finger to nose Deep Tendon Reflexes: 1+ bicep (L), 1+ bicep (R), 1+ brachioradialis (L), 1+ brachioradialis (R), 1+ knee (L), 1+ knee (R) Reflexes: mute plantar (L), mute plantar (R) Gait: other - did nto assess Objective Laboratory Tests Test 09/13/20 11:55 09/13/20 13:35 09/14/20 01:40 09/14/20 05:30 White Blood Count 4.0 K/UL (4.8-10.8) L 3.0 K/UL (4.8-10.8) L Red Blood Count 2.61 M/UL (4.70-6.10) L 2.46 M/UL (4.70-6.10) L Hemoglobin 7.6 G/DL (14.2-18.0) L 7.2 G/DL (14.2-18.0) L Hematocrit 24.1 % (42.0-52.0) L 21.5 % (42.0-52.0) L Mean Corpuscular Volume 92 FL (80-99) 87 FL (80-99) Mean Corpuscular Hemoglobin 29.0 PG (27.0-31.0) 29.2 PG (27.0-31.0) Mean Corpuscular Hemoglobin Concent 31.4 G/DL (32.0-36.0) L 33.5 G/DL (32.0-36.0) Red Cell Distribution Width 16.2 % (11.6-14.8) H 17.0 % (11.6-14.8) H Platelet Count 100 K/UL (150-450) L 89 K/UL (150-450) L Mean Platelet Volume 6.7 FL (6.5-10.1) 6.7 FL (6.5-10.1) Neutrophils (%) (Auto) % (45.0-75.0) % (45.0-75.0) Lymphocytes (%) (Auto) % (20.0-45.0) % (20.0-45.0) Monocytes (%) (Auto) % (1.0-10.0) % (1.0-10.0) Eosinophils (%) (Auto) % (0.0-3.0) % (0.0-3.0) Basophils (%) (Auto) % (0.0-2.0) % (0.0-2.0) Differential Total Cells Counted 100 100 Neutrophils % (Manual) 80 % (45-75) H 69 % (45-75) Lymphocytes % (Manual) 7 % (20-45) L 16 % (20-45) L Monocytes % (Manual) 11 % (1-10) H 11 % (1-10) H Eosinophils % (Manual) 2 % (0-3) 4 % (0-3) H Basophils % (Manual) 0 % (0-2) 0 % (0-2) Band Neutrophils 0 % (0-8) 0 % (0-8) Platelet Estimate Decreased L Decreased L Platelet Morphology Normal Normal Hypochromasia 2+ 2+ Anisocytosis 1+ 1+ Prothrombin Time 13.9 SEC (9.30-11.50) H 14.2 SEC (9.30-11.50) H Prothrombin Time INR 1.3 (0.9-1.1) H 1.3 (0.9-1.1) H Activated Partial Thromboplast Time 30 SEC (23-33) 27 SEC (23-33) Sodium Level 126 MMOL/L (136-145) L 128 MMOL/L (136-145) L Potassium Level 4.3 MMOL/L (3.5-5.1) 4.0 MMOL/L (3.5-5.1) Chloride Level 96 MMOL/L (98-107) L 99 MMOL/L (98-107) Carbon Dioxide Level 21 MMOL/L (21-32) 21 MMOL/L (21-32) Anion Gap 9 mmol/L (5-15) Blood Urea Nitrogen 8 mg/dL (7-18) 6 mg/dL (7-18) L Creatinine 1.0 MG/DL (0.55-1.30) 0.9 MG/DL (0.55-1.30) Estimated Glomerular Filtration Rate > 60 mL/min (>60) > 60 mL/min (>60) Glucose Level 127 MG/DL (74-106) H 91 MG/DL (74-106) Calcium Level 7.4 MG/DL (8.5-10.1) L 7.3 MG/DL (8.5-10.1) L Total Bilirubin 1.2 MG/DL (0.2-1.0) H 1.9 MG/DL (0.2-1.0) H Direct Bilirubin 0.7 MG/DL (0.0-0.3) H 1.1 MG/DL (0.0-0.3) H Aspartate Amino Transferase (AST) 144 U/L (15-37) H 124 U/L (15-37) H Alanine Aminotransferase (ALT) 50 U/L (12-78) 44 U/L (12-78) Alkaline Phosphatase 173 U/L (46-116) H 148 U/L (46-116) H Ammonia 90 umol/L (11-32) H 91 umol/L (11-32) H Total Protein 7.1 G/DL (6.4-8.2) 6.6 G/DL (6.4-8.2) Albumin 2.1 G/DL (3.4-5.0) L 2.0 G/DL (3.4-5.0) L Globulin 5.0 g/dL 4.6 g/dL Albumin/Globulin Ratio 0.4 (1.0-2.7) L 0.4 (1.0-2.7) L Lipase 385 U/L (73-393) 358 U/L (73-393) Urine Color Yellow Urine Appearance Clear Urine pH 5 (4.5-8.0) Urine Specific [place] 1.025 (1.005-1.035) Urine Protein 2+ (NEGATIVE) H Urine Glucose (UA) Negative (NEGATIVE) Urine Ketones 1+ (NEGATIVE) H Urine Blood Negative (NEGATIVE) Urine Nitrite Negative (NEGATIVE) Urine Bilirubin Negative (NEGATIVE) Urine Urobilinogen 1 MG/DL (0.0-1.0) H Urine Leukocyte Esterase 1+ (NEGATIVE) H Urine RBC 0-2 /HPF (0 - 0) H Urine WBC 2-4 /HPF (0 - 0) Urine Squamous Epithelial Cells Occasional /LPF Urine Bacteria Occasional /HPF (NONE) Urine Hyaline Casts 0-2 /LPF (NONE) H Urine Mucus Moderate /LPF (NONE/OCC) H Urine Osmolality 770 mOsm/kg (429-449) H Urine Random Sodium < 20 mmol/L (20-110) L Hemoglobin A1c 5.2 % (4.3-6.0) Uric Acid 4.5 MG/DL (2.6-7.2) Phosphorus Level 3.3 MG/DL (2.5-4.9) Magnesium Level 1.9 MG/DL (1.8-2.4) Iron Level 40 ug/dL (50-175) L Total Iron Binding Capacity 259 ug/dL (250-450) Percent Iron Saturation 15 % (15-50) Unsaturated Iron Binding 219 ug/dL (112-346) Ferritin 35 NG/ML (8-388) Gamma Glutamyl Transpeptidase 267 U/L (5-85) H Total Creatine Kinase 410 U/L (26-308) H C-Reactive Protein, Quantitative < 0.4 mg/dL (0.00-0.90) Pro-B-Type Natriuretic Peptide 136 pg/mL (0-125) H Triglycerides Level 36 MG/DL (30-150) Cholesterol Level 102 MG/DL (< 200) LDL Cholesterol 40 mg/dL (<100) HDL Cholesterol 55 MG/DL (40-60) Cholesterol/HDL Ratio 1.9 (3.3-4.4) L Alpha Fetoprotein Pending Vitamin B12 Level 1249 PG/ML (193-986) H Folate 4.8 NG/ML (8.6-58.9) L Thyroid Stimulating Hormone (TSH) 2.846 uiU/mL (0.358-3.740) Hepatitis A IgM Antibody Pending Hepatitis B Surface Antigen Pending Hepatitis B Core IgM Antibody Pending Hepatitis C Antibody Pending HIV (1&2) Antibody Rapid Negative (NEGATIVE) Impression/Recommendations Problems: (1) Bacteremia (2) Pancreatitis (3) Elevated lipase (4) Abdominal pain (5) Hepatic encephalopathy (6) Hyponatremia (7) Alcoholic cirrhosis of liver with ascites (8) Anemia (9) Cirrhosis of liver (10) Asterixis Recommendations Pt mental status improving. plan lactulose for high ammonia levels daily ammonia levels continue neuro monitoring surgery f/u for possible paracentesis Milli Sarmiento M.D. Sep 14, 2020 09:02
--- NOTE | 2020-09-14 10:06 | Consultation ---
History of Present Illness General Date patient seen: Sep 14, 2020 Time patient seen: 12:29 Chief Complaint: General Complaint Referring physician: PCP Reason for Consultation: Abd distension Present Illness HPI 45yo M with cirrhosis who p/w worsening abd distension requesting fluid removal. ID c/s to r/o infection. Pt reports last fluid removal was about 2 mo ago, worsening since then Some abd TTP given distension No fevers/chills, NVD, leukocytosis or other sx of infection. Lives in van No allergies to abx Allergies: Coded Allergies: No Known Allergies (Unverified , 05/24/20) Medication History No Active Prescriptions or Reported Meds Patient History Healthcare decision maker Resuscitation status Advanced Directive on File Review of Systems ROS Narrative 10-point ROS neg except as noted in HPI Physical Exam Physical Exam Narrative Gen: NAD HEENT: NCAT Pulm: BL chest rise on RA Abd: Very distended, +fluid wave, umbilical hernia, minimally TTP Ext: No c/c/e Skin: No visible rashes Neuro: Awake, alert, interactive Last 24 Hour Vital Signs Date Time Temp Pulse Resp B/P (MAP) Pulse Ox O2 Delivery O2 Flow Rate FiO2 09/14/20 04:00 97.6 83 20 110/67 (81) 99 09/14/20 00:00 97.6 87 20 115/65 (82) 98 09/13/20 21:00 Room Air 09/13/20 20:00 97.8 92 20 110/63 (79) 99 09/13/20 17:47 Room Air 09/13/20 16:00 98.2 107 20 108/65 (79) 100 09/13/20 14:30 98.6 115 20 128/79 (95) 100 09/13/20 14:10 98.0 101 20 105/65 99 Room Air 09/13/20 11:58 98.1 117 20 107/56 98 Room Air 09/13/20 11:58 117 20 09/13/20 11:44 98.1 117 20 107/56 (73) 98 Intake and Output 09/13/20 09/14/20 19:00 07:00 Intake Total 350 ml Output Total 0 ml Balance 0 ml 350 ml Intake Oral 350 ml Output Urine Total 0 ml # Voids 3 Laboratory Tests Test 09/13/20 11:55 09/13/20 13:35 09/14/20 01:40 09/14/20 05:30 White Blood Count 4.0 K/UL (4.8-10.8) L 3.0 K/UL (4.8-10.8) L Red Blood Count 2.61 M/UL (4.70-6.10) L 2.46 M/UL (4.70-6.10) L Hemoglobin 7.6 G/DL (14.2-18.0) L 7.2 G/DL (14.2-18.0) L Hematocrit 24.1 % (42.0-52.0) L 21.5 % (42.0-52.0) L Mean Corpuscular Volume 92 FL (80-99) 87 FL (80-99) Mean Corpuscular Hemoglobin 29.0 PG (27.0-31.0) 29.2 PG (27.0-31.0) Mean Corpuscular Hemoglobin Concent 31.4 G/DL (32.0-36.0) L 33.5 G/DL (32.0-36.0) Red Cell Distribution Width 16.2 % (11.6-14.8) H 17.0 % (11.6-14.8) H Platelet Count 100 K/UL (150-450) L 89 K/UL (150-450) L Mean Platelet Volume 6.7 FL (6.5-10.1) 6.7 FL (6.5-10.1) Neutrophils (%) (Auto) % (45.0-75.0) % (45.0-75.0) Lymphocytes (%) (Auto) % (20.0-45.0) % (20.0-45.0) Monocytes (%) (Auto) % (1.0-10.0) % (1.0-10.0) Eosinophils (%) (Auto) % (0.0-3.0) % (0.0-3.0) Basophils (%) (Auto) % (0.0-2.0) % (0.0-2.0) Differential Total Cells Counted 100 100 Neutrophils % (Manual) 80 % (45-75) H 69 % (45-75) Lymphocytes % (Manual) 7 % (20-45) L 16 % (20-45) L Monocytes % (Manual) 11 % (1-10) H 11 % (1-10) H Eosinophils % (Manual) 2 % (0-3) 4 % (0-3) H Basophils % (Manual) 0 % (0-2) 0 % (0-2) Band Neutrophils 0 % (0-8) 0 % (0-8) Platelet Estimate Decreased L Decreased L Platelet Morphology Normal Normal Hypochromasia 2+ 2+ Anisocytosis 1+ 1+ Prothrombin Time 13.9 SEC (9.30-11.50) H 14.2 SEC (9.30-11.50) H Prothromb Time International Ratio 1.3 (0.9-1.1) H 1.3 (0.9-1.1) H Activated Partial Thromboplast Time 30 SEC (23-33) 27 SEC (23-33) Sodium Level 126 MMOL/L (136-145) L 128 MMOL/L (136-145) L Potassium Level 4.3 MMOL/L (3.5-5.1) 4.0 MMOL/L (3.5-5.1) Chloride Level 96 MMOL/L (98-107) L 99 MMOL/L (98-107) Carbon Dioxide Level 21 MMOL/L (21-32) 21 MMOL/L (21-32) Anion Gap 9 mmol/L (5-15) Blood Urea Nitrogen 8 mg/dL (7-18) 6 mg/dL (7-18) L Creatinine 1.0 MG/DL (0.55-1.30) 0.9 MG/DL (0.55-1.30) Estimat Glomerular Filtration Rate > 60 mL/min (>60) > 60 mL/min (>60) Glucose Level 127 MG/DL (74-106) H 91 MG/DL (74-106) Calcium Level 7.4 MG/DL (8.5-10.1) L 7.3 MG/DL (8.5-10.1) L Total Bilirubin 1.2 MG/DL (0.2-1.0) H 1.9 MG/DL (0.2-1.0) H Direct Bilirubin 0.7 MG/DL (0.0-0.3) H 1.1 MG/DL (0.0-0.3) H Aspartate Amino Transf (AST/SGOT) 144 U/L (15-37) H 124 U/L (15-37) H Alanine Aminotransferase (ALT/SGPT) 50 U/L (12-78) 44 U/L (12-78) Alkaline Phosphatase 173 U/L (46-116) H 148 U/L (46-116) H Ammonia 90 umol/L (11-32) H 91 umol/L (11-32) H Total Protein 7.1 G/DL (6.4-8.2) 6.6 G/DL (6.4-8.2) Albumin 2.1 G/DL (3.4-5.0) L 2.0 G/DL (3.4-5.0) L Globulin 5.0 g/dL 4.6 g/dL Albumin/Globulin Ratio 0.4 (1.0-2.7) L 0.4 (1.0-2.7) L Lipase 385 U/L (73-393) 358 U/L (73-393) Urine Color Yellow Urine Appearance Clear Urine pH 5 (4.5-8.0) Urine Specific [place] 1.025 (1.005-1.035) Urine Protein 2+ (NEGATIVE) H Urine Glucose (UA) Negative (NEGATIVE) Urine Ketones 1+ (NEGATIVE) H Urine Blood Negative (NEGATIVE) Urine Nitrite Negative (NEGATIVE) Urine Bilirubin Negative (NEGATIVE) Urine Urobilinogen 1 MG/DL (0.0-1.0) H Urine Leukocyte Esterase 1+ (NEGATIVE) H Urine RBC 0-2 /HPF (0 - 0) H Urine WBC 2-4 /HPF (0 - 0) Urine Squamous Epithelial Cells Occasional /LPF Urine Bacteria Occasional /HPF (NONE) Urine Hyaline Casts 0-2 /LPF (NONE) H Urine Mucus Moderate /LPF (NONE/OCC) H Urine Osmolality 770 mOsm/kg (429-449) H Urine Random Sodium < 20 mmol/L (20-110) L Hemoglobin A1c 5.2 % (4.3-6.0) Uric Acid 4.5 MG/DL (2.6-7.2) Phosphorus Level 3.3 MG/DL (2.5-4.9) Magnesium Level 1.9 MG/DL (1.8-2.4) Iron Level 40 ug/dL (50-175) L Total Iron Binding Capacity 259 ug/dL (250-450) Percent Iron Saturation 15 % (15-50) Unsaturated Iron Binding 219 ug/dL (112-346) Ferritin 35 NG/ML (8-388) Gamma Glutamyl Transpeptidase 267 U/L (5-85) H Total Creatine Kinase 410 U/L (26-308) H C-Reactive Protein, Quantitative < 0.4 mg/dL (0.00-0.90) Pro-B-Type Natriuretic Peptide 136 pg/mL (0-125) H Triglycerides Level 36 MG/DL (30-150) Cholesterol Level 102 MG/DL (< 200) LDL Cholesterol 40 mg/dL (<100) HDL Cholesterol 55 MG/DL (40-60) Cholesterol/HDL Ratio 1.9 (3.3-4.4) L Alpha Fetoprotein Pending Vitamin B12 Level 1249 PG/ML (193-986) H Folate 4.8 NG/ML (8.6-58.9) L Thyroid Stimulating Hormone (TSH) 2.846 uiU/mL (0.358-3.740) Hepatitis A IgM Antibody Pending Hepatitis B Surface Antigen Pending Hepatitis B Core IgM Antibody Pending Hepatitis C Antibody Pending HIV (1&2) Antibody Rapid Negative (NEGATIVE) Microbiology Date/Time Source Procedure Growth Status 09/13/20 14:00 Rectum Received Height (Feet): 5 Height (Inches): 2.00 Weight (Pounds): 175 Medications Current Medications Medications (Trade) Dose Ordered Sig/Desirae Route PRN Reason Start Time Stop Time Status Last Admin Dose Admin Acetaminophen (Tylenol) 650 mg Q4H PRN ORAL Temp >100.5 09/13/20 14:00 10/13/20 13:59 Al Hydroxide/Mg Hydroxide (Mylanta II) 30 ml Q6H PRN ORAL dyspepsia 09/13/20 14:00 10/13/20 13:59 Bisacodyl (Dulcolax) 10 mg HSPRN PRN RECTAL Constipation 09/13/20 14:00 12/12/20 13:59 Dextrose (Dextrose 50%) 25 ml Q30M PRN IV Hypoglycemia 09/13/20 14:00 12/12/20 13:59 Dextrose (Dextrose 50%) 50 ml Q30M PRN IV Hypoglycemia 09/13/20 14:00 12/12/20 13:59 Dextrose/Sodium Chloride 1,000 ml @ 50 mls/hr Q20H IV 09/13/20 15:00 10/13/20 14:59 09/13/20 15:14 Diphenhydramine HCl (Benadryl) 25 mg Q6H PRN ORAL Itching/Pruritis 09/13/20 14:00 10/13/20 13:59 Docusate Sodium (Colace) 100 mg EVERY 12 HOURS ORAL 09/13/20 21:00 10/13/20 20:59 Enoxaparin Sodium (Lovenox) 40 mg DAILY SUBQ 09/14/20 09:00 12/13/20 08:59 Famotidine (Pepcid I.v.) 20 mg Q12HR IVP 09/13/20 21:00 10/13/20 20:59 09/13/20 20:41 Iron Sucrose 100 mg/Sodium Chloride 60 ml @ 240 mls/hr BEDTIME IVPB 09/14/20 21:00 09/18/20 21:14 Lorazepam (Ativan) 1 mg Q4H PRN ORAL For Anxiety 09/13/20 14:00 09/20/20 13:59 Magnesium Hydroxide (Mom) 30 ml HSPRN PRN ORAL Constipation 09/13/20 14:00 10/13/20 13:59 Midodrine (Pro-Amatine) 10 mg THREE TIMES A DAY ORAL 09/13/20 15:00 12/12/20 14:59 09/13/20 17:33 Morphine Sulfate (Morphine Sulfate) 2 mg EVERY 3 HOURS PRN IVP Moderate Pain (Pain Scale 4-6) 09/13/20 14:00 09/20/20 13:59 09/13/20 15:14 Ondansetron HCl (Zofran) 4 mg Q6H PRN IVP Nausea & Vomiting 09/13/20 14:00 10/13/20 13:59 09/13/20 15:30 Temazepam (Restoril) 15 mg HSPRN PRN ORAL Insomnia 09/13/20 14:00 09/20/20 13:59 09/13/20 20:42 Assessment/Plan Assessment/Plan: 45yo M with: Afebrile Normal WBC Cirrhosis c/b thrombocytopenia and ascites Ascites, r/o SBP 09/13 UA neg HIV neg Hep panel p Plan: Monitor off abx for now R/o SBP with paracentesis - send fluid for cell count and diff, bacterial cx Monitor CBC/CMP Monitor temp curve, hemodynamics Monitor resp status D/w RN Thank you for this consult. [facility] will continue to follow. Nirali Whelan M.D. Sep 14, 2020 10:06
--- NOTE | 2020-09-14 10:17 | Nephrology Progress Note ---
Assessment/Plan Problem List: (1) Hyponatremia (2) Anemia (3) Cirrhosis of liver Plan September 14: Patient weak but comfortable. Refused Muro catheter. Labs reviewed. Will DC IV fluid. Will try albumin followed by IV Lasix. P.o. fluid restriction. Midodrine for low BP. Monitor electrolytes and renal parameters. Continue per GI and consultants. Subjective ROS Limited/Unobtainable: No Constitutional: Reports: malaise, weakness Objective Objective Last 24 Hour Vital Signs Date Time Temp Pulse Resp B/P (MAP) Pulse Ox O2 Delivery O2 Flow Rate FiO2 09/14/20 04:00 97.6 83 20 110/67 (81) 99 09/14/20 00:00 97.6 87 20 115/65 (82) 98 09/13/20 21:00 Room Air 09/13/20 20:00 97.8 92 20 110/63 (79) 99 09/13/20 17:47 Room Air 09/13/20 16:00 98.2 107 20 108/65 (79) 100 09/13/20 14:30 98.6 115 20 128/79 (95) 100 09/13/20 14:10 98.0 101 20 105/65 99 Room Air 09/13/20 11:58 98.1 117 20 107/56 98 Room Air 09/13/20 11:58 117 20 09/13/20 11:44 98.1 117 20 107/56 (73) 98 Intake and Output 09/13/20 09/14/20 19:00 07:00 Intake Total 350 ml Output Total 0 ml Balance 0 ml 350 ml Intake Oral 350 ml Output Urine Total 0 ml # Voids 3 Current Medications Medications (Trade) Dose Ordered Sig/Desirae Route PRN Reason Start Time Stop Time Status Last Admin Dose Admin Acetaminophen (Tylenol) 650 mg Q4H PRN ORAL Temp >100.5 09/13/20 14:00 10/13/20 13:59 Albumin Human 100 ml @ 100 mls/hr ONCE ONCE IV 09/14/20 10:15 09/14/20 11:14 Bisacodyl (Dulcolax) 10 mg HSPRN PRN RECTAL Constipation 09/13/20 14:00 12/12/20 13:59 Dextrose (Dextrose 50%) 25 ml Q30M PRN IV Hypoglycemia 09/13/20 14:00 12/12/20 13:59 Dextrose (Dextrose 50%) 50 ml Q30M PRN IV Hypoglycemia 09/13/20 14:00 12/12/20 13:59 Diphenhydramine HCl (Benadryl) 25 mg Q6H PRN ORAL Itching/Pruritis 09/13/20 14:00 10/13/20 13:59 Docusate Sodium (Colace) 100 mg EVERY 12 HOURS ORAL 09/13/20 21:00 10/13/20 20:59 Enoxaparin Sodium (Lovenox) 40 mg DAILY SUBQ 09/14/20 09:00 12/13/20 08:59 Furosemide (Lasix) 20 mg ONCE IV 09/14/20 10:15 09/14/20 13:00 Iron Sucrose 100 mg/Sodium Chloride 60 ml @ 240 mls/hr BEDTIME IVPB 09/14/20 21:00 09/18/20 21:14 Lorazepam (Ativan) 1 mg Q4H PRN ORAL For Anxiety 09/13/20 14:00 09/20/20 13:59 Magnesium Hydroxide (Mom) 30 ml HSPRN PRN ORAL Constipation 09/13/20 14:00 10/13/20 13:59 Midodrine (Pro-Amatine) 10 mg THREE TIMES A DAY ORAL 09/13/20 15:00 12/12/20 14:59 09/13/20 17:33 Morphine Sulfate (Morphine Sulfate) 2 mg EVERY 3 HOURS PRN IVP Moderate Pain (Pain Scale 4-6) 09/13/20 14:00 09/20/20 13:59 09/13/20 15:14 Ondansetron HCl (Zofran) 4 mg Q6H PRN IVP Nausea & Vomiting 09/13/20 14:00 10/13/20 13:59 09/13/20 15:30 Temazepam (Restoril) 15 mg HSPRN PRN ORAL Insomnia 09/13/20 14:00 09/20/20 13:59 09/13/20 20:42 Laboratory Tests 09/13/20 11:55: White Blood Count 4.0L, Red Blood Count 2.61L, Hemoglobin 7.6L, Hematocrit 24.1L , Mean Corpuscular Volume 92, Mean Corpuscular Hemoglobin 29.0, Mean Corpuscular Hemoglobin Concent 31.4L, Red Cell Distribution Width 16.2H, Platelet Count 100L , Mean Platelet Volume 6.7, Neutrophils (%) (Auto) , Lymphocytes (%) (Auto) , Monocytes (%) (Auto) , Eosinophils (%) (Auto) , Basophils (%) (Auto) , Differential Total Cells Counted 100, Neutrophils % (Manual) 80H, Lymphocytes % (Manual) 7L, Monocytes % (Manual) 11H, Eosinophils % (Manual) 2, Basophils % (Manual) 0, Band Neutrophils 0, Platelet Estimate DecreasedL, Platelet Morphology Normal, Hypochromasia 2+, Anisocytosis 1+, Prothrombin Time 13.9H, Prothromb Time International Ratio 1.3H, Activated Partial Thromboplast Time 30, Sodium Level 126L, Potassium Level 4.3, Chloride Level 96L, Carbon Dioxide Level 21, Anion Gap 9, Blood Urea Nitrogen 8, Creatinine 1.0, Estimat Glomerular Filtration Rate > 60, Glucose Level 127H, Calcium Level 7.4L, Total Bilirubin 1.2H, Direct Bilirubin 0.7H, Aspartate Amino Transf (AST/SGOT) 144H, Alanine Aminotransferase (ALT/SGPT) 50, Alkaline Phosphatase 173H, Ammonia 90H, Total Protein 7.1, Albumin 2.1L, Globulin 5.0, Albumin/Globulin Ratio 0.4L, Lipase 385 09/13/20 13:35: Urine Color Yellow, Urine Appearance Clear, Urine pH 5, Urine Specific [place] 1.025, Urine Protein 2+H, Urine Glucose (UA) Negative, Urine Ketones 1+H, Urine Blood Negative, Urine Nitrite Negative, Urine Bilirubin Negative, Urine Urobilinogen 1H, Urine Leukocyte Esterase 1+H, Urine RBC 0-2H, Urine WBC 2-4, Urine Squamous Epithelial Cells Occasional, Urine Bacteria Occasional, Urine Hyaline Casts 0-2H, Urine Mucus ModerateH 09/14/20 01:40: Urine Osmolality 770H, Urine Random Sodium < 20L 09/14/20 05:30: White Blood Count 3.0L, Red Blood Count 2.46L, Hemoglobin 7.2L, Hematocrit 21.5L , Mean Corpuscular Volume 87, Mean Corpuscular Hemoglobin 29.2, Mean Corpuscular Hemoglobin Concent 33.5, Red Cell Distribution Width 17.0H, Platelet Count 89L, Mean Platelet Volume 6.7, Neutrophils (%) (Auto) , Lymphocytes (%) (Auto) , Monocytes (%) (Auto) , Eosinophils (%) (Auto) , Basophils (%) (Auto) , Differ ential Total Cells Counted 100, Neutrophils % (Manual) 69, Lymphocytes % (Manual) 16L, Monocytes % (Manual) 11H, Eosinophils % (Manual) 4H, Basophils % (Manual) 0, Band Neutrophils 0, Platelet Estimate DecreasedL, Platelet Morphology Normal, Hypochromasia 2+, Anisocytosis 1+, Prothrombin Time 14.2H, Prothromb Time International Ratio 1.3H, Activated Partial Thromboplast Time 27, Sodium Level 128L, Potassium Level 4.0, Chloride Level 99, Carbon Dioxide Level 21, Blood Urea Nitrogen 6L, Creatinine 0.9, Estimat Glomerular Filtration Rate > 60, Glucose Level 91, Calcium Level 7.3L, Total Bilirubin 1.9H, Direct Bilirubin 1.1H, Aspartate Amino Transf (AST/SGOT) 124H, Alanine Aminotransferase (ALT/SGPT) 44, Alkaline Phosphatase 148H, Ammonia 91H, Total Protein 6.6, Albumin 2.0L, Globulin 4.6, Albumin/Globulin Ratio 0.4L, Lipase 358, Hemoglobin A1c 5.2, Uric Acid 4.5, Phosphorus Level 3.3, Magnesium Level 1.9, Iron Level 40L, Total Iron Binding Capacity 259, Percent Iron Saturation 15, Unsaturated Iron Binding 219, Ferritin 35, Gamma Glutamyl Transpeptidase 267H, Total Creatine Kinase 410H, C-Reactive Protein, Quantitative < 0.4, Pro-B-Type Natriuretic Peptide 136H, Triglycerides Level 36, Cholesterol Level 102, LDL Cholesterol 40, HDL Cholesterol 55, Cholesterol/HDL Ratio 1.9L, Alpha Fetoprotein [Pending], Vitamin B12 Level 1249H, Folate 4.8L, Thyroid Stimulating Hormone (TSH) 2.846, Hepatitis A IgM Antibody [Pending], Hepatitis B Surface Antigen [Pending], Hepatitis B Core IgM Antibody [Pending], Hepatitis C Antibody [Pending], HIV (1&2) Antibody Rapid Negative Height (Feet): 5 Height (Inches): 2.00 Weight (Pounds): 175 General Appearance: no apparent distress, lethargic Cardiovascular: tachycardia Respiratory/Chest: decreased breath sounds Abdomen: distended, other - Ascites True Smith MD Sep 14, 2020 10:17
[2020-09-14 12:00] VITALS: BP 117/69
--- NOTE | 2020-09-14 16:30 | Pre-Procedure Note/Attestation ---
Pre-Procedure Note/Attestation Complete Prior to Procedure Planned Procedure: not applicable Procedure Narrative: paracentesis Indications for Procedure Pre-Operative Diagnosis: ascites Attestation I attest that I discussed the nature of the procedure; its benefits; risks and complications; and alternatives (and the risks and benefits of such alternatives), prior to the procedure, with the patient (or the patient's legal operations support representative). I attest that, if there was a reasonable possibility of needing a blood almanzar sfusion, the patient (or the patient's legal operations support representative) was given the [facility] standardized written summary, pursuant to the Ruben Maritza Blood Safety Act ([place] Health and Safety Code # 1645, as amended). I attest that I re-evaluated the patient just prior to the surgery and that there has been no change in the patient's H&P, except as documented below: Dominguez Guadarrama MD Sep 14, 2020 16:30
--- NOTE | 2020-09-14 16:30 | History and Physical Report ---
DATE OF ADMISSION: 09/13/2020 DATE AND TIME SEEN: On 09/14/2020 at 9 a.m. CONSULTANTS: 1. True Smith MD 2. Montana Cohen MD 3. Dr. Sarmiento. 4. Dr. Quintana. 5. Ervin Pinon MD CHIEF COMPLAINT: Abdominal pain and weakness. BRIEF HISTORY: This is a 45-year-old homeless man. The patient lives in a car. He presented to [facility] last night with increased abdominal pain and swelling for about two days. The patient was diagnosed with ascites, hepatic encephalopathy, abdominal swelling, anemia, and hyponatremia, and admitted to medical floor. Currently, calm in bed, slight abdominal pain, no complaint. REVIEW OF SYSTEMS: No chest pain. Slight shortness of breath. Slight nausea. No vomiting or diarrhea. PAST MEDICAL HISTORY: Includes hepatic encephalopathy, pancreatitis, alcoholic cirrhosis, anemia, and ascites. PAST SURGICAL HISTORY: Denies. ALLERGIES: Denies. MEDICATIONS: Include , docusate sodium, famotidine, midodrine, diphenhydramine, temazepam, lorazepam, Zofran, magnesium, morphine, and lactulose. SOCIAL HISTORY: No smoking. Positive alcohol. No intravenous drug abuse. FAMILY HISTORY: Noncontributory. PHYSICAL EXAMINATION: GENERAL: Calm in bed, oriented x3, in no acute distress. VITAL SIGNS: Temperature is 97, pulse 83, respirations 20, and blood pressure 110/67. CARDIOVASCULAR: No murmur. LUNGS: Poor air exchange. ABDOMEN: Bowel sounds distant, positive. Markedly swollen. EXTREMITIES: No cyanosis, clubbing, or edema. NEUROLOGIC: The patient moves all extremities, slightly weak. LABORATORY AND DIAGNOSTIC DATA: Labs at this time show white count 3, hemoglobin and hematocrit 7.2/21, and platelets 89,000. BMP shows sodium 128, BUN 6, calcium 7.3. Iron 40. 267. AST 124, ALT 44, alkaline phosphatase 148. Ammonia 91. INR is 1.3, PTT 27. Urinalysis showed 1+ leukocyte esterase. ASSESSMENT: 1. Ascites. 2. UTI. 3. Hepatic encephalopathy. 4. Abdominal swelling. 5. Anemia. 6. Pancytopenia. 7. Hyponatremia. 8. History of pancreatitis. 9. Alcoholic cirrhosis. PLAN: 1. Antibiotics per Infectious Disease. 2. Nephrology and GI followup. 3. Lactulose. 4. The patient may need paracentesis. 5. Check CBC and BMP in the morning. 6. PT and dietary evaluation. Eduardo England D.O. DR: COLE JOB#: [id number] CC:
--- NOTE | 2020-09-14 16:31 | Brief Operative Note ---
Immediate Post Operative Note Operative Note Pre-op Diagnosis: ascites Procedure: paracentesis Post-op Diagnosis: same as pre-op Surgeon: Janusz GUADARRAMA Anesthesia: local Specimen: yes - 50 ml cloudy fluid Complications: none Fluids: none Implant(s) used?: No Dominguez Guadarrama MD Sep 14, 2020 16:31
[2020-09-14 17:42] VITALS: BP 102/62
--- NOTE | 2020-09-14 18:05 | Diagnostic Imaging Report ---
Indications: Ascites Technique: Ultrasound used to localize optimal puncture site. Sterile prepping and draping right lower quadrant. Local anesthesia with 1% lidocaine. Under real-time ultrasound guidance, puncture peritoneal space using paracentesis needle. Stylet removed. Catheter placed to vacuum bottle suction. Total 11 liters of cloudy yellow fluid aspirated. Patient tolerated procedure well, without immediate complication. A specimen was sent to the lab Findings: Followup sonography demonstrates complete resolution of peritoneal fluid. Impression: Successful ultrasound-guided paracentesis, yielding 11 liters of fluid
[2020-09-14] MEDS: Morphine Sulfate 2mg/ml Inj(IV/IM USE ONLY) IVP PRN (18:17)
--- NOTE | 2020-09-14 19:08 | Surgery Progress Note ---
Surgery Progress Note Subjective Additional Comments para today feels better no n/v/f/c Objective Last 24 Hour Vital Signs Date Time Temp Pulse Resp B/P (MAP) Pulse Ox O2 Delivery O2 Flow Rate FiO2 09/14/20 17:42 98.8 97 20 102/62 (75) 97 09/14/20 12:00 97.6 108 20 117/69 (85) 99 09/14/20 09:00 Room Air 09/14/20 08:00 97.5 101 20 107/70 (82) 100 09/14/20 04:00 97.6 83 20 110/67 (81) 99 09/14/20 00:00 97.6 87 20 115/65 (82) 98 09/13/20 21:00 Room Air 09/13/20 20:00 97.8 92 20 110/63 (79) 99 I&O Intake and Output 09/13/20 09/14/20 19:00 07:00 Intake Total 350 ml Output Total 0 ml Balance 0 ml 350 ml Intake Oral 350 ml Output Urine Total 0 ml # Voids 3 Cardiovascular: RSR Respiratory: clear, decreased breath sounds Abdomen: soft, distended, non-tender, present bowel sounds Extremities: no edema, no tenderness, no cyanosis Laboratory Tests Test 09/14/20 01:40 09/14/20 05:30 Urine Osmolality 770 mOsm/kg (429-449) H Urine Random Sodium < 20 mmol/L (20-110) L White Blood Count 3.0 K/UL (4.8-10.8) L Red Blood Count 2.46 M/UL (4.70-6.10) L Hemoglobin 7.2 G/DL (14.2-18.0) L Hematocrit 21.5 % (42.0-52.0) L Mean Corpuscular Volume 87 FL (80-99) Mean Corpuscular Hemoglobin 29.2 PG (27.0-31.0) Mean Corpuscular Hemoglobin Concent 33.5 G/DL (32.0-36.0) Red Cell Distribution Width 17.0 % (11.6-14.8) H Platelet Count 89 K/UL (150-450) L Mean Platelet Volume 6.7 FL (6.5-10.1) Neutrophils (%) (Auto) % (45.0-75.0) Lymphocytes (%) (Auto) % (20.0-45.0) Monocytes (%) (Auto) % (1.0-10.0) Eosinophils (%) (Auto) % (0.0-3.0) Basophils (%) (Auto) % (0.0-2.0) Differential Total Cells Counted 100 Neutrophils % (Manual) 69 % (45-75) Lymphocytes % (Manual) 16 % (20-45) L Monocytes % (Manual) 11 % (1-10) H Eosinophils % (Manual) 4 % (0-3) H Basophils % (Manual) 0 % (0-2) Band Neutrophils 0 % (0-8) Platelet Estimate Decreased L Platelet Morphology Normal Hypochromasia 2+ Anisocytosis 1+ Prothrombin Time 14.2 SEC (9.30-11.50) H Prothromb Time International Ratio 1.3 (0.9-1.1) H Activated Partial Thromboplast Time 27 SEC (23-33) Sodium Level 128 MMOL/L (136-145) L Potassium Level 4.0 MMOL/L (3.5-5.1) Chloride Level 99 MMOL/L (98-107) Carbon Dioxide Level 21 MMOL/L (21-32) Blood Urea Nitrogen 6 mg/dL (7-18) L Creatinine 0.9 MG/DL (0.55-1.30) Estimat Glomerular Filtration Rate > 60 mL/min (>60) Glucose Level 91 MG/DL (74-106) Hemoglobin A1c 5.2 % (4.3-6.0) Uric Acid 4.5 MG/DL (2.6-7.2) Calcium Level 7.3 MG/DL (8.5-10.1) L Phosphorus Level 3.3 MG/DL (2.5-4.9) Magnesium Level 1.9 MG/DL (1.8-2.4) Iron Level 40 ug/dL (50-175) L Total Iron Binding Capacity 259 ug/dL (250-450) Percent Iron Saturation 15 % (15-50) Unsaturated Iron Binding 219 ug/dL (112-346) Ferritin 35 NG/ML (8-388) Total Bilirubin 1.9 MG/DL (0.2-1.0) H Direct Bilirubin 1.1 MG/DL (0.0-0.3) H Gamma Glutamyl Transpeptidase 267 U/L (5-85) H Aspartate Amino Transf (AST/SGOT) 124 U/L (15-37) H Alanine Aminotransferase (ALT/SGPT) 44 U/L (12-78) Alkaline Phosphatase 148 U/L (46-116) H Ammonia 91 umol/L (11-32) H Total Creatine Kinase 410 U/L (26-308) H C-Reactive Protein, Quantitative < 0.4 mg/dL (0.00-0.90) Pro-B-Type Natriuretic Peptide 136 pg/mL (0-125) H Total Protein 6.6 G/DL (6.4-8.2) Albumin 2.0 G/DL (3.4-5.0) L Globulin 4.6 g/dL Albumin/Globulin Ratio 0.4 (1.0-2.7) L Triglycerides Level 36 MG/DL (30-150) Cholesterol Level 102 MG/DL (< 200) LDL Cholesterol 40 mg/dL (<100) HDL Cholesterol 55 MG/DL (40-60) Cholesterol/HDL Ratio 1.9 (3.3-4.4) L Lipase 358 U/L (73-393) Alpha Fetoprotein Pending Vitamin B12 Level 1249 PG/ML (193-986) H Folate 4.8 NG/ML (8.6-58.9) L Thyroid Stimulating Hormone (TSH) 2.846 uiU/mL (0.358-3.740) Hepatitis A IgM Antibody Pending Hepatitis B Surface Antigen Pending Hepatitis B Core IgM Antibody Pending Hepatitis C Antibody Pending HIV (1&2) Antibody Rapid Negative (NEGATIVE) Plan Problems: (1) Abdominal pain Assessment & Plan: 45M abd pain distended abdomen with cramping pain worsening over last few days no n/v/f/c labs noted on exam significant distention fluid filled hx etoh hx liver insufficiency admit US paracentesis gi eval no acute surgical intervention planned okay for diet will follow with recs thank you Ultrasound used to localize optimal puncture site. Sterile prepping and draping right lower quadrant. Local anesthesia with 1% lidocaine. Under real- time ultrasound guidance, puncture peritoneal space using paracentesis needle. Stylet removed. Catheter placed to vacuum bottle suction. Total 11 liters of cloudy yel low fluid aspirated. Patient tolerated procedure well, without immediate complication. A specimen was sent to the lab Findings: Followup sonography demonstrates complete resolution of peritoneal fluid. Impression: Successful ultrasound-guided paracentesis, yielding 11 liters of fluid (2) Hepatic encephalopathy (3) Anemia (4) Bacteremia (5) Hyponatremia (6) Pancreatitis (7) Alcoholic cirrhosis of liver with ascites (8) Elevated lipase Ervin Pinon Sep 14, 2020 19:08
[2020-09-14 20:00] VITALS: BP 109/65
[2020-09-14] MEDS ORDERED: Iron Sucrose 100 MG in NS 55 ML IVPB SCH (21:00)
[2020-09-15] VITALS: BP 113/67
[2020-09-15 04:00] VITALS: BP 110/65
--- NOTE | 2020-09-15 06:50 | Hematology/Onc Progress Note ---
Assessment/Plan Assessment/Plan Assessment and Recs # Pancytopenia likely related to cirrhosis, reviewed prior ct and us of the abd --> get hepatitis and hiv panel --> correct coagulopathy as needed --> neupogen and plt transfusion prn --> wbc 3 --> hgb 7.2 --> plt 89 --> p smear has been reviewed for blasts --> anemia panel reviewed # Coagulopathy -- with elev markers --> correct as needed, pre surg # Alcoholic cirrhosis of liver with ascites --> rifax, lactulose as per gi --> 12/2 para done 12l # Hepatic encephalopathy -> stable # Hyponatremia --> per renal # Dvt ppx scds Appreciate consultation and dw RN Subjective Constitutional: Denies: no symptoms, chills, fever, malaise, weakness, other HEENT: Denies: no symptoms, eye pain, blurred vision, tearing, double vision, ear pain, ear discharge, nose pain, nose congestion, throat pain, throat swelling, mouth pain, mouth swelling, other Cardiovascular: Denies: no symptoms, chest pain, edema, irregular heart rate, lightheadedness, palpitations, syncope, other Respiratory: Denies: no symptoms, cough, shortness of breath, SOB with excertion, SOB at rest, sputum, wheezing, other Gastrointestinal/Abdominal: Denies: no symptoms, abdomen distended, abdominal pain, black stools, tarry stools, blood in stool, constipated, diarrhea, difficulty swallowing, nausea, poor appetite, poor fluid intake, rectal bleeding, vomiting, other Genitourinary: Denies: no symptoms, burning, discharge, frequency, flank pain, hematuria, incontinence, pain, urgency, other Neurologic/Psychiatric: Denies: no symptoms, anxiety, depressed, emotional problems, headache, numbness, paresthesia, pre-existing deficit, seizure, tingling, tremors, weakness, other Endocrine: Denies: no symptoms, excessive sweating, flushing, intolerance to cold, intolerance to heat, increased hunger, increased thirst, increased urine, unexplained weight gain, unexplained weight loss, other Allergies: Coded Allergies: No Known Allergies (Unverified , 05/24/20) Subjective 09/15 s/p 11l of fluid that has been removed, no major changes, wbc 3, hgb 7 Objective Objective Current Medications Medications (Trade) Dose Ordered Sig/Desirae Route PRN Reason Start Time Stop Time Status Last Admin Dose Admin Acetaminophen (Tylenol) 650 mg Q4H PRN ORAL Temp >100.5 09/13/20 14:00 10/13/20 13:59 Bisacodyl (Dulcolax) 10 mg HSPRN PRN RECTAL Constipation 09/13/20 14:00 12/12/20 13:59 Dextrose (Dextrose 50%) 25 ml Q30M PRN IV Hypoglycemia 09/13/20 14:00 12/12/20 13:59 Dextrose (Dextrose 50%) 50 ml Q30M PRN IV Hypoglycemia 09/13/20 14:00 12/12/20 13:59 Diphenhydramine HCl (Benadryl) 25 mg Q6H PRN ORAL Itching/Pruritis 09/13/20 14:00 10/13/20 13:59 Docusate Sodium (Colace) 100 mg TID ORAL 09/14/20 13:00 10/13/20 20:59 09/14/20 18:16 Enoxaparin Sodium (Lovenox) 40 mg DAILY SUBQ 09/14/20 09:00 12/13/20 08:59 Folic Acid (Folate) 1 mg DAILY ORAL 09/14/20 10:30 10/14/20 10:29 09/14/20 18:17 Iron Sucrose 100 mg/Sodium Chloride 60 ml @ 240 mls/hr BEDTIME IVPB 09/14/20 21:00 09/18/20 21:14 09/14/20 20:11 Lorazepam (Ativan) 1 mg Q4H PRN ORAL For Anxiety 09/13/20 14:00 09/20/20 13:59 Magnesium Hydroxide (Mom) 30 ml HSPRN PRN ORAL Constipation 09/13/20 14:00 10/13/20 13:59 Midodrine (Pro-Amatine) 10 mg THREE TIMES A DAY ORAL 09/13/20 15:00 12/12/20 14:59 09/14/20 18:17 Morphine Sulfate (Morphine Sulfate) 2 mg EVERY 3 HOURS PRN IVP Moderate Pain (Pain Scale 4-6) 09/13/20 14:00 09/20/20 13:59 09/14/20 18:17 Ondansetron HCl (Zofran) 4 mg Q6H PRN IVP Nausea & Vomiting 09/13/20 14:00 10/13/20 13:59 09/14/20 20:11 Temazepam (Restoril) 15 mg HSPRN PRN ORAL Insomnia 09/13/20 14:00 09/20/20 13:59 09/14/20 22:43 Last 24 Hour Vital Signs Date Time Temp Pulse Resp B/P (MAP) Pulse Ox O2 Delivery O2 Flow Rate FiO2 09/15/20 04:00 97.6 90 20 110/65 (80) 99 09/15/20 00:00 97.0 91 19 113/67 (82) 100 09/14/20 21:00 Room Air 09/14/20 20:00 98.0 92 19 109/65 (80) 99 09/14/20 17:42 98.8 97 20 102/62 (75) 97 09/14/20 12:00 97.6 108 20 117/69 (85) 99 09/14/20 09:00 Room Air 09/14/20 08:00 97.5 101 20 107/70 (82) 100 09/14/20 04:00 97.6 83 20 110/67 (81) 99 09/14/20 00:00 97.6 87 20 115/65 (82) 98 09/13/20 21:00 Room Air 09/13/20 20:00 97.8 92 20 110/63 (79) 99 09/13/20 17:47 Room Air 09/13/20 16:00 98.2 107 20 108/65 (79) 100 09/13/20 14:30 98.6 115 20 128/79 (95) 100 09/13/20 14:10 98.0 101 20 105/65 99 Room Air 09/13/20 11:58 98.1 117 20 107/56 98 Room Air 09/13/20 11:58 117 20 09/13/20 11:44 98.1 117 20 107/56 (73) 98 Intake and Output 09/14/20 09/15/20 19:00 07:00 Intake Total 970 ml 550 ml Output Total 300 ml Balance 670 ml 550 ml Intake Oral 720 ml 550 ml IV Total 250 ml Output Urine Total 300 ml # Voids 3 Labs Test 09/13/20 11:55 09/13/20 13:35 09/14/20 01:40 09/14/20 05:30 White Blood Count 4.0 K/UL (4.8-10.8) 3.0 K/UL (4.8-10.8) Red Blood Count 2.61 M/UL (4.70-6.10) 2.46 M/UL (4.70-6.10) Hemoglobin 7.6 G/DL (14.2-18.0) 7.2 G/DL (14.2-18.0) Hematocrit 24.1 % (42.0-52.0) 21.5 % (42.0-52.0) Mean Corpuscular Volume 92 FL (80-99) 87 FL (80-99) Mean Corpuscular Hemoglobin 29.0 PG (27.0-31.0) 29.2 PG (27.0-31.0) Mean Corpuscular Hemoglobin Concent 31.4 G/DL (32.0-36.0) 33.5 G/DL (32.0-36.0) Red Cell Distribution Width 16.2 % (11.6-14.8) 17.0 % (11.6-14.8) Platelet Count 100 K/UL (150-450) 89 K/UL (150-450) Mean Platelet Volume 6.7 FL (6.5-10.1) 6.7 FL (6.5-10.1) Neutrophils (%) (Auto) % (45.0-75.0) % (45.0-75.0) Lymphocytes (%) (Auto) % (20.0-45.0) % (20.0-45.0) Monocytes (%) (Auto) % (1.0-10.0) % (1.0-10.0) Eosinophils (%) (Auto) % (0.0-3.0) % (0.0-3.0) Basophils (%) (Auto) % (0.0-2.0) % (0.0-2.0) Differential Total Cells Counted 100 100 Neutrophils % (Manual) 80 % (45-75) 69 % (45-75) Lymphocytes % (Manual) 7 % (20-45) 16 % (20-45) Monocytes % (Manual) 11 % (1-10) 11 % (1-10) Eosinophils % (Manual) 2 % (0-3) 4 % (0-3) Basophils % (Manual) 0 % (0-2) 0 % (0-2) Band Neutrophils 0 % (0-8) 0 % (0-8) Platelet Estimate Decreased Decreased Platelet Morphology Normal Normal Hypochromasia 2+ 2+ Anisocytosis 1+ 1+ Prothrombin Time 13.9 SEC (9.30-11.50) 14.2 SEC (9.30-11.50) Prothromb Time International Ratio 1.3 (0.9-1.1) 1.3 (0.9-1.1) Activated Partial Thromboplast Time 30 SEC (23-33) 27 SEC (23-33) Sodium Level 126 MMOL/L (136-145) 128 MMOL/L (136-145) Potassium Level 4.3 MMOL/L (3.5-5.1) 4.0 MMOL/L (3.5-5.1) Chloride Level 96 MMOL/L (98-107) 99 MMOL/L (98-107) Carbon Dioxide Level 21 MMOL/L (21-32) 21 MMOL/L (21-32) Anion Gap 9 mmol/L (5-15) Blood Urea Nitrogen 8 mg/dL (7-18) 6 mg/dL (7-18) Creatinine 1.0 MG/DL (0.55-1.30) 0.9 MG/DL (0.55-1.30) Estimat Glomerular Filtration Rate > 60 mL/min (>60) > 60 mL/min (>60) Glucose Level 127 MG/DL (74-106) 91 MG/DL (74-106) Calcium Level 7.4 MG/DL (8.5-10.1) 7.3 MG/DL (8.5-10.1) Total Bilirubin 1.2 MG/DL (0.2-1.0) 1.9 MG/DL (0.2-1.0) Direct Bilirubin 0.7 MG/DL (0.0-0.3) 1.1 MG/DL (0.0-0.3) Aspartate Amino Transf (AST/SGOT) 144 U/L (15-37) 124 U/L (15-37) Alanine Aminotransferase (ALT/SGPT) 50 U/L (12-78) 44 U/L (12-78) Alkaline Phosphatase 173 U/L (46-116) 148 U/L (46-116) Ammonia 90 umol/L (11-32) 91 umol/L (11-32) Total Protein 7.1 G/DL (6.4-8.2) 6.6 G/DL (6.4-8.2) Albumin 2.1 G/DL (3.4-5.0) 2.0 G/DL (3.4-5.0) Globulin 5.0 g/dL 4.6 g/dL Albumin/Globulin Ratio 0.4 (1.0-2.7) 0.4 (1.0-2.7) Lipase 385 U/L (73-393) 358 U/L (73-393) Urine Color Yellow Urine Appearance Clear Urine pH 5 (4.5-8.0) Urine Specific [place] 1.025 (1.005-1.035) Urine Protein 2+ (NEGATIVE) Urine Glucose (UA) Negative (NEGATIVE) Urine Ketones 1+ (NEGATIVE) Urine Blood Negative (NEGATIVE) Urine Nitrite Negative (NEGATIVE) Urine Bilirubin Negative (NEGATIVE) Urine Urobilinogen 1 MG/DL (0.0-1.0) Urine Leukocyte Esterase 1+ (NEGATIVE) Urine RBC 0-2 /HPF (0 - 0) Urine WBC 2-4 /HPF (0 - 0) Urine Squamous Epithelial Cells Occasional /LPF Urine Bacteria Occasional /HPF (NONE) Urine Hyaline Casts 0-2 /LPF (NONE) Urine Mucus Moderate /LPF (NONE/OCC) Urine Osmolality 770 mOsm/kg (429-449) Urine Random Sodium < 20 mmol/L (20-110) Hemoglobin A1c 5.2 % (4.3-6.0) Uric Acid 4.5 MG/DL (2.6-7.2) Phosphorus Level 3.3 MG/DL (2.5-4.9) Magnesium Level 1.9 MG/DL (1.8-2.4) Iron Level 40 ug/dL (50-175) Total Iron Binding Capacity 259 ug/dL (250-450) Percent Iron Saturation 15 % (15-50) Unsaturated Iron Binding 219 ug/dL (112-346) Ferritin 35 NG/ML (8-388) Gamma Glutamyl Transpeptidase 267 U/L (5-85) Total Creatine Kinase 410 U/L (26-308) C-Reactive Protein, Quantitative < 0.4 mg/dL (0.00-0.90) Pro-B-Type Natriuretic Peptide 136 pg/mL (0-125) Triglycerides Level 36 MG/DL (30-150) Cholesterol Level 102 MG/DL (< 200) LDL Cholesterol 40 mg/dL (<100) HDL Cholesterol 55 MG/DL (40-60) Cholesterol/HDL Ratio 1.9 (3.3-4.4) Vitamin B12 Level 1249 PG/ML (193-986) Folate 4.8 NG/ML (8.6-58.9) Thyroid Stimulating Hormone (TSH) 2.846 uiU/mL (0.358-3.740) HIV (1&2) Antibody Rapid Negative (NEGATIVE) Height (Feet): 5 Height (Inches): 2.00 Weight (Pounds): 175 Objective PE General: no apparent distress, alert, GCS 15, non-toxic Head: normocephalic, atraumatic HEENT: hearing grossly normal, normal pharynx, no angioedema, normal voice Neck: full range of motion, supple/symm/no masses Respiratory: chest non-tender, lungs clear, normal breath sounds, speaking full sentences Cardiovascular: regular rate, rhythm, no edema Gastrointestinal: normal bowel sounds, soft, non-distended, distended Rectal: deferred Genitourinary: normal inspection, no CVA tenderness Musculoskeletal: back normal, normal range of motion, gait/station normal, non- tender Manolo Quintana MD Sep 15, 2020 06:50
[2020-09-15 08:00] VITALS: BP 109/65
--- NOTE | 2020-09-15 08:20 | Infectious Diseases Prog Note ---
Assessment/Plan 45yo M with: Afebrile Normal WBC Cirrhosis c/b thrombocytopenia and ascites Ascites, r/o SBP 09/13 UA neg HIV neg Hep panel neg Plan: Monitor off abx, low s/f infection R/o SBP with paracentesis - send fluid for cell count and diff, bacterial cx Given low s/f infection, OK to d/c from ID standpoint Monitor CBC/CMP Monitor temp curve, hemodynamics Monitor resp status D/w RN Thank you for this consult. [facility] will continue to follow. Subjective Allergies: Coded Allergies: No Known Allergies (Unverified , 05/24/20) AF S/p paracentesis w/ 11L fluid removed Despite d/w RN about sending ascites for further studies, does not appear to have been done, though she says she talked with lab so perhaps it is in process Pt doing well, wants to leave Objective Last 24 Hour Vital Signs Date Time Temp Pulse Resp B/P (MAP) Pulse Ox O2 Delivery O2 Flow Rate FiO2 09/15/20 04:00 97.6 90 20 110/65 (80) 99 09/15/20 00:00 97.0 91 19 113/67 (82) 100 09/14/20 21:00 Room Air 09/14/20 20:00 98.0 92 19 109/65 (80) 99 09/14/20 17:42 98.8 97 20 102/62 (75) 97 09/14/20 12:00 97.6 108 20 117/69 (85) 99 09/14/20 09:00 Room Air Height (Feet): 5 Height (Inches): 2.00 Weight (Pounds): 175 Respiratory/Chest: no respiratory distress Gen: NAD in bed HEENT: NCAT, EOMI, PERRL Pulm: BL chest rise on RA Abd: Soft, less distended than prior, still w/ reducible large umbilical hernia Ext: No c/c/e Neuro: Awake, interactive Microbiology Date/Time Source Procedure Growth Status 09/13/20 14:00 Rectum Received Laboratory Tests Test 09/15/20 07:30 White Blood Count Pending Red Blood Count Pending Hemoglobin Pending Hematocrit Pending Mean Corpuscular Volume Pending Mean Corpuscular Hemoglobin Pending Mean Corpuscular Hemoglobin Concent Pending Red Cell Distribution Width Pending Platelet Count Pending Mean Platelet Volume Pending Neutrophils (%) (Auto) Pending Lymphocytes (%) (Auto) Pending Monocytes (%) (Auto) Pending Eosinophils (%) (Auto) Pending Basophils (%) (Auto) Pending Sodium Level Pending Potassium Level Pending Chloride Level Pending Carbon Dioxide Level Pending Blood Urea Nitrogen Pending Creatinine Pending Estimat Glomerular Filtration Rate Pending Glucose Level Pending Calcium Level Pending Current Medications Medications (Trade) Dose Ordered Sig/Desirae Route PRN Reason Start Time Stop Time Status Last Admin Dose Admin Acetaminophen (Tylenol) 650 mg Q4H PRN ORAL Temp >100.5 09/13/20 14:00 10/13/20 13:59 Bisacodyl (Dulcolax) 10 mg HSPRN PRN RECTAL Constipation 09/13/20 14:00 12/12/20 13:59 Dextrose (Dextrose 50%) 25 ml Q30M PRN IV Hypoglycemia 09/13/20 14:00 12/12/20 13:59 Dextrose (Dextrose 50%) 50 ml Q30M PRN IV Hypoglycemia 09/13/20 14:00 12/12/20 13:59 Diphenhydramine HCl (Benadryl) 25 mg Q6H PRN ORAL Itching/Pruritis 09/13/20 14:00 10/13/20 13:59 Docusate Sodium (Colace) 100 mg TID ORAL 09/14/20 13:00 10/13/20 20:59 09/14/20 18:16 Enoxaparin Sodium (Lovenox) 40 mg DAILY SUBQ 09/14/20 09:00 12/13/20 08:59 Folic Acid (Folate) 1 mg DAILY ORAL 09/14/20 10:30 10/14/20 10:29 09/14/20 18:17 Iron Sucrose 100 mg/Sodium Chloride 60 ml @ 240 mls/hr BEDTIME IVPB 09/14/20 21:00 09/18/20 21:14 09/14/20 20:11 Lorazepam (Ativan) 1 mg Q4H PRN ORAL For Anxiety 09/13/20 14:00 09/20/20 13:59 Magnesium Hydroxide (Mom) 30 ml HSPRN PRN ORAL Constipation 09/13/20 14:00 10/13/20 13:59 Midodrine (Pro-Amatine) 10 mg THREE TIMES A DAY ORAL 09/13/20 15:00 12/12/20 14:59 09/14/20 18:17 Morphine Sulfate (Morphine Sulfate) 2 mg EVERY 3 HOURS PRN IVP Moderate Pain (Pain Scale 4-6) 09/13/20 14:00 09/20/20 13:59 09/14/20 18:17 Ondansetron HCl (Zofran) 4 mg Q6H PRN IVP Nausea & Vomiting 09/13/20 14:00 10/13/20 13:59 09/14/20 20:11 Temazepam (Restoril) 15 mg HSPRN PRN ORAL Insomnia 09/13/20 14:00 09/20/20 13:59 09/14/20 22:43 Nirali Whelan M.D. Sep 15, 2020 08:20
[2020-09-15 08:39] LABS: HEMATOCRIT 22.6 % (42.0-52.0); HEMOGLOBIN 7.5 G/DL (14.2-18.0); MEAN CORPUSCULAR VOLUME 87 FL (80-99); PLATELET COUNT 89 K/UL (150-450); RED CELL DISTRIBUTION WIDTH 16.8 % (11.6-14.8); WHITE BLOOD COUNT 2.6 K/UL (4.8-10.8)
[2020-09-15 08:52] LABS: ANION GAP 9 mmol/L (5-15); BLOOD UREA NITROGEN 12 mg/dL (7-18); CALCIUM 7.6 MG/DL (8.5-10.1); CARBON DIOXIDE 21 MMOL/L (21-32); CHLORIDE 99 MMOL/L (98-107); CREATININE 1.1 MG/DL (0.55-1.30); POTASSIUM 3.6 MMOL/L (3.5-5.1); SODIUM 129 MMOL/L (136-145)
[2020-09-15] MEDS: Midodrine 10mg tab ORAL SCH (08:54)
[2020-09-15] MEDS: Docusate 100mg cap ORAL SCH (08:54)
[2020-09-15] MEDS: Enoxaparin 40mg Inj SUBQ SCH (11:05)
--- NOTE | 2020-09-15 12:03 | Nephrology Progress Note ---
Assessment/Plan Problem List: (1) Hyponatremia (2) Anemia (3) Cirrhosis of liver Plan September 15: Labs reviewed. Serum sodium 129. Trial of 3% saline and IV Lasix. Potassium supplement. Monitor electrolytes. Continue per consultants. Lactulose for high ammonia. September 14: Patient weak but comfortable. Refused Muro catheter. Labs reviewed. Will DC IV fluid. Will try albumin followed by IV Lasix. P.o. fluid restriction. Midodrine for low BP. Monitor electrolytes and renal parameters. Continue per GI and consultants. Subjective ROS Limited/Unobtainable: No Constitutional: Reports: malaise, weakness Objective Objective Last 24 Hour Vital Signs Date Time Temp Pulse Resp B/P (MAP) Pulse Ox O2 Delivery O2 Flow Rate FiO2 09/15/20 09:08 Room Air 09/15/20 08:00 98.0 111 19 109/65 (80) 100 09/15/20 04:00 97.6 90 20 110/65 (80) 99 09/15/20 00:00 97.0 91 19 113/67 (82) 100 09/14/20 21:00 Room Air 09/14/20 20:00 98.0 92 19 109/65 (80) 99 09/14/20 17:42 98.8 97 20 102/62 (75) 97 Intake and Output 09/14/20 09/15/20 19:00 07:00 Intake Total 970 ml 550 ml Output Total 300 ml Balance 670 ml 550 ml Intake Oral 720 ml 550 ml IV Total 250 ml Output Urine Total 300 ml # Voids 3 Current Medications Medications (Trade) Dose Ordered Sig/Desirae Route PRN Reason Start Time Stop Time Status Last Admin Dose Admin Acetaminophen (Tylenol) 650 mg Q4H PRN ORAL Temp >100.5 09/13/20 14:00 10/13/20 13:59 Dextrose (Dextrose 50%) 25 ml Q30M PRN IV Hypoglycemia 09/13/20 14:00 12/12/20 13:59 Dextrose (Dextrose 50%) 50 ml Q30M PRN IV Hypoglycemia 09/13/20 14:00 12/12/20 13:59 Diphenhydramine HCl (Benadryl) 25 mg Q6H PRN ORAL Itching/Pruritis 09/13/20 14:00 10/13/20 13:59 Docusate Sodium (Colace) 100 mg TID ORAL 09/14/20 13:00 10/13/20 20:59 09/15/20 08:54 Enoxaparin Sodium (Lovenox) 40 mg DAILY SUBQ 09/14/20 09:00 12/13/20 08:59 09/15/20 11:05 Folic Acid (Folate) 1 mg DAILY ORAL 09/14/20 10:30 10/14/20 10:29 09/15/20 08:54 Iron Sucrose 100 mg/Sodium Chloride 60 ml @ 240 mls/hr BEDTIME IVPB 09/14/20 21:00 09/18/20 21:14 09/14/20 20:11 Lactulose (Cephulac) 30 gm FOUR TIMES A DAY ORAL 09/15/20 13:00 10/15/20 12:59 UNV Lorazepam (Ativan) 1 mg Q4H PRN ORAL For Anxiety 09/13/20 14:00 09/20/20 13:59 Magnesium Hydroxide (Mom) 30 ml HSPRN PRN ORAL Constipation 09/13/20 14:00 10/13/20 13:59 Midodrine (Pro-Amatine) 10 mg THREE TIMES A DAY ORAL 09/13/20 15:00 12/12/20 14:59 09/15/20 08:54 Morphine Sulfate (Morphine Sulfate) 2 mg EVERY 3 HOURS PRN IVP Moderate Pain (Pain Scale 4-6) 09/13/20 14:00 09/20/20 13:59 09/14/20 18:17 Ondansetron HCl (Zofran) 4 mg Q6H PRN IVP Nausea & Vomiting 09/13/20 14:00 10/13/20 13:59 09/14/20 20:11 Temazepam (Restoril) 15 mg HSPRN PRN ORAL Insomnia 09/13/20 14:00 09/20/20 13:59 09/14/20 22:43 Laboratory Tests 09/15/20 07:30: White Blood Count 2.6L, Red Blood Count 2.60L, Hemoglobin 7.5L, Hematocrit 22.6L , Mean Corpuscular Volume 87, Mean Corpuscular Hemoglobin 29.0, Mean Corpuscular Hemoglobin Concent 33.4, Red Cell Distribution Width 16.8H, Platelet Count 89L, Mean Platelet Volume 7.1, Neutrophils (%) (Auto) , Lymphocytes (%) (Auto) , Monocytes (%) (Auto) , Eosinophils (%) (Auto) , Basophils (%) (Auto) , Neutrophils % (Manual) [Pending], Lymphocytes % (Manual) [Pending], Platelet Estimate [Pending], Platelet Morphology [Pending], Sodium Level 129L, Potassium Level 3.6, Chloride Level 99, Carbon Dioxide Level 21, Anion Gap 9, Blood Urea Nitrogen 12, Creatinine 1.1, Estimat Glomerular Filtration Rate > 60, Glucose Level 92, Calcium Level 7.6L Height (Feet): 5 Height (Inches): 2.00 Weight (Pounds): 175 General Appearance: no apparent distress Cardiovascular: tachycardia Respiratory/Chest: decreased breath sounds Abdomen: distended True Smith MD Sep 15, 2020 12:03
--- NOTE | 2020-09-15 12:30 | General Progress Note ---
Subjective Constitutional: Reports: weakness Allergies: Coded Allergies: No Known Allergies (Unverified , 05/24/20) All Systems: reviewed and negative except above Subjective feeling better, leaving ama Objective Last 24 Hour Vital Signs Date Time Temp Pulse Resp B/P (MAP) Pulse Ox O2 Delivery O2 Flow Rate FiO2 09/15/20 09:08 Room Air 09/15/20 08:00 98.0 111 19 109/65 (80) 100 09/15/20 04:00 97.6 90 20 110/65 (80) 99 09/15/20 00:00 97.0 91 19 113/67 (82) 100 09/14/20 21:00 Room Air 09/14/20 20:00 98.0 92 19 109/65 (80) 99 09/14/20 17:42 98.8 97 20 102/62 (75) 97 Intake and Output 09/14/20 09/15/20 19:00 07:00 Intake Total 970 ml 550 ml Output Total 300 ml Balance 670 ml 550 ml Intake Oral 720 ml 550 ml IV Total 250 ml Output Urine Total 300 ml # Voids 3 Laboratory Tests 09/15/20 07:30: White Blood Count 2.6L, Red Blood Count 2.60L, Hemoglobin 7.5L, Hematocrit 22.6L , Mean Corpuscular Volume 87, Mean Corpuscular Hemoglobin 29.0, Mean Corpuscular Hemoglobin Concent 33.4, Red Cell Distribution Width 16.8H, Platelet Count 89L, Mean Platelet Volume 7.1, Neutrophils (%) (Auto) , Lymphocytes (%) (Auto) , Monocytes (%) (Auto) , Eosinophils (%) (Auto) , Basophils (%) (Auto) , Neutrophils % (Manual) [Pending], Lymphocytes % (Manual) [Pending], Platelet Estimate [Pending], Platelet Morphology [Pending], Sodium Level 129L, Potassium Level 3.6, Chloride Level 99, Carbon Dioxide Level 21, Anion Gap 9, Blood Urea Nitrogen 12, Creatinine 1.1, Estimat Glomerular Filtration Rate > 60, Glucose Level 92, Calcium Level 7.6L Height (Feet): 5 Height (Inches): 2.00 Weight (Pounds): 175 General Appearance: alert EENT: normal ENT inspection Neck: normal alignment Cardiovascular: normal peripheral pulses, normal rate, regular rhythm Respiratory/Chest: chest wall non-tender, lungs clear, normal breath sounds Abdomen: hypoactive bowel sounds, distended Extremities: normal inspection Edema: 1+ Arm (L), 1+ Arm (R), 1+ Leg (L), 1+ Leg (R), 1+ Pedal (L), 1+ Pedal (R), 1+ Generalized Edema: trace edema Neurologic: responsive, motor weakness Skin: normal pigmentation, warm/dry Assessment/Plan Problem List: (1) Abdominal pain ICD Codes: R10.9 - Unspecified abdominal pain SNOMED: 77468518 (2) Hepatic encephalopathy ICD Codes: K72.90 - Hepatic failure, unspecified without coma SNOMED: 91764358 (3) Alcoholic cirrhosis of liver with ascites ICD Codes: K70.31 - Alcoholic cirrhosis of liver with ascites SNOMED: 582274582, 612102097 (4) Anemia ICD Codes: D64.9 - Anemia, unspecified SNOMED: 496886620 Qualifiers: Qualified Codes: D64.9 - Anemia, unspecified (5) Cirrhosis of liver ICD Codes: K74.60 - Unspecified cirrhosis of liver SNOMED: 90608023 Status: progressing Assessment/Plan: pt leaving Eduardo GoldbergStacy DO Sep 15, 2020 12:30
[2020-09-15] MEDS ORDERED: Lactulose 20gm/30ml UDC ORAL SCH (13:00)
--- NOTE | 2020-09-15 13:02 | Surgery Progress Note ---
Surgery Progress Note Subjective Symptoms: improved, pain absent, tolerating diet, passing flatus, BM Objective Last 24 Hour Vital Signs Date Time Temp Pulse Resp B/P (MAP) Pulse Ox O2 Delivery O2 Flow Rate FiO2 09/15/20 09:08 Room Air 09/15/20 08:00 98.0 111 19 109/65 (80) 100 09/15/20 04:00 97.6 90 20 110/65 (80) 99 09/15/20 00:00 97.0 91 19 113/67 (82) 100 09/14/20 21:00 Room Air 09/14/20 20:00 98.0 92 19 109/65 (80) 99 09/14/20 17:42 98.8 97 20 102/62 (75) 97 I&O Intake and Output 09/14/20 09/15/20 19:00 07:00 Intake Total 970 ml 550 ml Output Total 300 ml Balance 670 ml 550 ml Intake Oral 720 ml 550 ml IV Total 250 ml Output Urine Total 300 ml # Voids 3 Cardiovascular: RSR Respiratory: clear Abdomen: soft, distended, non-tender Extremities: edema, no tenderness, no cyanosis Laboratory Tests Test 09/15/20 07:30 White Blood Count 2.6 K/UL (4.8-10.8) L Red Blood Count 2.60 M/UL (4.70-6.10) L Hemoglobin 7.5 G/DL (14.2-18.0) L Hematocrit 22.6 % (42.0-52.0) L Mean Corpuscular Volume 87 FL (80-99) Mean Corpuscular Hemoglobin 29.0 PG (27.0-31.0) Mean Corpuscular Hemoglobin Concent 33.4 G/DL (32.0-36.0) Red Cell Distribution Width 16.8 % (11.6-14.8) H Platelet Count 89 K/UL (150-450) L Mean Platelet Volume 7.1 FL (6.5-10.1) Neutrophils (%) (Auto) % (45.0-75.0) Lymphocytes (%) (Auto) % (20.0-45.0) Monocytes (%) (Auto) % (1.0-10.0) Eosinophils (%) (Auto) % (0.0-3.0) Basophils (%) (Auto) % (0.0-2.0) Differential Total Cells Counted 100 Neutrophils % (Manual) 77 % (45-75) H Lymphocytes % (Manual) 13 % (20-45) L Monocytes % (Manual) 10 % (1-10) Eosinophils % (Manual) 0 % (0-3) Basophils % (Manual) 0 % (0-2) Band Neutrophils 0 % (0-8) Platelet Estimate Decreased L Platelet Morphology Normal Hypochromasia 1+ Anisocytosis 1+ Sodium Level 129 MMOL/L (136-145) L Potassium Level 3.6 MMOL/L (3.5-5.1) Chloride Level 99 MMOL/L (98-107) Carbon Dioxide Level 21 MMOL/L (21-32) Anion Gap 9 mmol/L (5-15) Blood Urea Nitrogen 12 mg/dL (7-18) Creatinine 1.1 MG/DL (0.55-1.30) Estimat Glomerular Filtration Rate > 60 mL/min (>60) Glucose Level 92 MG/DL (74-106) Calcium Level 7.6 MG/DL (8.5-10.1) L Plan Problems: (1) Abdominal pain Assessment & Plan: 45M abd pain distended abdomen with cramping pain worsening over last few days no n/v/f/c labs noted on exam significant distention fluid filled hx etoh hx liver insufficiency admit US paracentesis gi eval no acute surgical intervention planned okay for diet will follow with recs thank you Ultrasound used to localize optimal puncture site. Sterile prepping and draping right lower quadrant. Local anesthesia with 1% lidocaine. Under real- time ultrasound guidance, puncture peritoneal space using paracentesis needle. Stylet removed. Catheter placed to vacuum bottle suction. Total 11 liters of cloudy yellow fluid aspirated. Patient tolerated procedure well, without immediate complication. A specimen was sent to the lab Findings: Followup sonography demonstrates complete resolution of peritoneal fluid. Impression: Successful ultrasound-guided paracentesis, yielding 11 liters of fluid (2) Hepatic encephalopathy (3) Anemia (4) Bacteremia (5) Hyponatremia (6) Pancreatitis (7) Alcoholic cirrhosis of liver with ascites (8) Elevated lipase Ervin Pinon Sep 15, 2020 13:02
[2020-09-15] MEDS ORDERED: NaCl 3% 500ml 250 ML IV SCH (13:30)
--- NOTE | 2020-09-19 08:45 | Discharge Summary ---
Discharge Summary Discharge Summary _ DATE OF ADMISSION: 09/13/2020 DATE OF DISCHARGE: 09/15/2020 Patient left AGAINST MEDICAL ADVICE REASON FOR ADMISSION: 45 years old male with past medical history of liver failure, cirrhosis, presented with abdominal distention. Patient reported prior history of paracentesis. He denied abdominal pain, nausea and vomiting. No fever or chills. Upon evaluation patient was tachycardic with heart rate 117, otherwise pulse oximetry was stable on room air; and he was afebrile. Laboratory work-up revealed anemia with hemoglobin 7.6, hematocrit 24.1 , platelet count 100. WBC 4.0. Sodium 126. Calcium 7.4. AST 144, ALT 50. Lipase 385. Total bilirubin 1.2, direct bilirubin 0.7. Ammonia 90. Albumin 2.1 . Urinalysis revealed no evidence of urinary tract infection , +2 protein. Patient typed and crossed , received lactulose, ultrasound-guided paracentesis ordered. Patient subsequently admitted with hepatic encephalopathy , hyponatremia, alcoholic cirrhosis with ascites and anemia to medical surgical floor for further management. CONSULTANTS: ID specialist Dr. Whelan poacher operator Dr. Smith milk wagon driver/oncologist Dr. Quintana surgery Dr. Pinon neurologist [facility] COURSE: Patient admitted to medical surgical floor . Patient was continued on lactulose. Patient undergone ultrasound-guided paracentesis on 09/14 yielding 11 L of ascitic fluid. Hemoglobin and hematocrit were closely monitored with goal to keep hemoglobin above 7 . Per milk wagon driver pancytopenia was most likely due to cirrhosis. Hepatitis panel was negative. Rapid HIV test was negative. Upon leaving [place] , WBC 2.6 hemoglobin 7.5 hematocrit 22.6 and platelet count 89. Patient had no leukocytosis , no fevers. ID specialist recommended to monitor patient off antibiotic since low suspicion for infection. Ascitic fluid was sent for cell count with differential and bacterial culture to rule out a spontaneous bacterial peritonitis. However given low risk of infection ID specialist cleared patient for discharge. Renal parameters and electrolytes were closely monitored; creatinine remained stable. Hyponatremia work-up initiated. Per poacher operator recommendations, patient received trial of 3% saline and IV Lasix along with albumin. Initial IV fluids stopped. Sodium up to 129. Potassium was supplemented. Patient declined Muro catheter. Patient received midodrine for low blood pressure. Daily ammonia ordered ; ammonia the next day still elevated - 91. On 09/15 patient decided to leave AGAINST MEDICAL ADVICE The risks and consequences of signing AGAINST MEDICAL ADVICE were discussed with patient in detail. Patient verbalized understanding, nevertheless signed AMA form and left. . FINAL DIAGNOSES: Hyponatremia Anemia Hepatic encephalopathy Alcoholic cirrhosis of liver with ascites Status post paracentesis Pancytopenia , likely due to cirrhosis I have been assigned to dictate discharge summary for this account. I was not involved in the patient's management. Joyce Anderson NP Sep 19, 2020 08:45
== END 2020-09-15 12:15 | disposition left against medical advice (07) | DRG 279 ==
LOC: EDBEDREQ 12:18 → EMR 12:39 → 4E 13:19 → EDBEDREQ 13:45
PROC: 0W9G3ZZ Drainage of Peritoneal Cavity, Percutaneous Approach (ICD-10-PCS; principal; 2020-09-14)
DX: K72.90 Hepatic failure, unspecified without coma (principal); D61.818 Other pancytopenia; K70.31 Alcoholic cirrhosis of liver with ascites; E87.1 Hypo-osmolality and hyponatremia; D68.9 Coagulation defect, unspecified; Z59.0 Homelessness; N39.0 Urinary tract infection, site not specified; D64.9 Anemia, unspecified; D68.4 Acquired coagulation factor deficiency; K71.3 Toxic liver disease with chronic persistent hepatitis
CPT/HCPCS: 36415; 76942; 80048; 80053; 80061; 81003; 82105; 82140; 82248; 82550; 82607; 82728; 82746; 82977; 83036; 83540; 83550; 83690; 83735; 83880; 83935; 84100; 84300; 84443; 84550; 85007; 85025; 85610; 85730; 86140; 86703; 86705; 86709; 86803; 86850; 86900; 86901; 86920; 87081; 87340; 96360; 99291; J2405; J7030

== ENCOUNTER 2020-09-27 13:15 | Inpatient (IN) | payer MEDICAID ==
[~2020-09-27] VITALS: Ht 160 cm; Wt 80.7 kg
[~2020-09-27 13:15] MED LIST changes: +DiphenhydrAMINE 50mg/ml Inj IVP ONE; +Metoclopramide 10mg/2ml Inj IVP ONE
[2020-09-27 13:30] VITALS: BP 158/76
[2020-09-27 14:12] LABS: HEMOGLOBIN 8.1 G/DL (14.2-18.0); MEAN CORPUSCULAR VOLUME 88 FL (80-99); PLATELET COUNT 121 K/UL (150-450); RED BLOOD COUNT 2.83 M/UL (4.70-6.10); RED CELL DISTRIBUTION WIDTH 16.4 % (11.6-14.8); WHITE BLOOD COUNT 5.8 K/UL (4.8-10.8)
--- NOTE | 2020-09-27 14:17 | Emergency Room Report ---
History of Present Illness General Chief Complaint: Abdominal Pain Source: Patient Present Illness HPI Patient presents with abdominal pain and vomiting. He says he has just been vomiting up food stuff. He does drink alcohol and last drink was yesterday. Denies seizures or withdrawal but he says he gets shaky when he stops drinking. He says his stools have been normal. He denies diarrhea, melena or const ipation. The pain is with fullness throughout his abdomen and diffuse without radiation. He rates the pain 8/10. Has not taken anything to treat the pain. Patient denies fevers or chills. He denies productive cough and sore throat. Patient is uncertain whether he has been exposed to Covid positive contacts. The patient was last admitted here September 13-. Ended up leaving AGAINST MEDICAL ADVICE. Discharge diagnoses: Hyponatremia Anemia Hepatic encephalopathy Alcoholic cirrhosis of liver with ascites Status post paracentesis Pancytopenia , likely due to cirrhosis Allergies: Coded Allergies: No Known Allergies (Unverified , 05/24/20) COVID-19 Screening Contact w/high risk pt: No Experienced COVID-19 symptoms?: No COVID-19 Testing performed LIQUID LOADER: No Patient History Past Medical History: see triage record, old chart reviewed Social History: Reports: alcohol use Social History Narrative from [facility], lives in a van by himself Reviewed Nursing Documentation: PMH: Agreed; PSxH: Agreed Nursing Documentation-PMH Past Medical History: No History, Except For Hx Cancer: No Hx Gastrointestinal Problems: Yes Hx Neurological Problems: No Review of Systems All Other Systems: negative except mentioned in HPI Physical Exam Vital Signs Date Time Temp Pulse Resp B/P (MAP) Pulse Ox O2 Delivery O2 Flow Rate FiO2 09/27/20 13:12 98.2 84 16 158/76 (103) 99 Room Air Sp02 EP Interpretation: reviewed, normal General Appearance: no apparent distress, GCS 15, other - Slightly disheveled Head: normocephalic Eyes: bilateral eye PERRL, bilateral eye EOMI, bilateral eye Scleral Injection ENT: moist mucus membranes Neck: supple Respiratory: lungs clear, normal breath sounds Cardiovascular #1: regular rate, rhythm Cardiovascular #2: 2+ radial (R) Gastrointestinal: normal inspection, normal bowel sounds, no mass, no rebound, distended, guarding - Diffuse, tenderness, other - Fluid wave Genitourinary: no CVA tenderness Musculoskeletal: back normal, normal range of motion Neurologic: alert, oriented x3, speech normal, other - Slight tremor no asterixis Psychiatric: mood/affect normal Skin: no rash, warm/dry Medical Decision Making Diagnostic Impression: Primary Impression: Abdominal pain Qualified Codes: R10.84 - Generalized abdominal pain Additional Impressions: Alcoholic cirrhosis of liver with ascites Anemia Qualified Codes: D64.9 - Anemia, unspecified ER Course Patient presents with abdominal pain with history of alcoholic cirrhosis and hepatic encephalopathy. Differential includes pancreatitis, gastritis, peptic ulcer disease, ascites, spontaneous bacterial peritonitis amongst others. Patient evaluated with EKG, chest x-ray, abdominal film and labs. Patient treated with IV hydration, metoclopramide, Benadryl and Pepcid. White count normal. Hemoglobin 8. This is higher than the last admission when it was 7. Abdomen with out obstruction and groundglass appearance with lumbar stabilization. Chest x-ray unremarkable poor inspiration. Due to the clinical presentation patient appears to need admission to the hospital. Labs are still pending and the patient is signed out to Dr. Romero. Laboratory Tests Test 09/27/20 13:40 White Blood Count 5.8 K/UL (4.8-10.8) Red Blood Count 2.83 M/UL (4.70-6.10) L Hemoglobin 8.1 G/DL (14.2-18.0) L Hematocrit 25.0 % (42.0-52.0) L Mean Corpuscular Volume 88 FL (80-99) Mean Corpuscular Hemoglobin 28.7 PG (27.0-31.0) Mean Corpuscular Hemoglobin Concent 32.5 G/DL (32.0-36.0) Red Cell Distribution Width 16.4 % (11.6-14.8) H Platelet Count 121 K/UL (150-450) L Mean Platelet Volume 7.2 FL (6.5-10.1) Neutrophils (%) (Auto) % (45.0-75.0) Lymphocytes (%) (Auto) % (20.0-45.0) Monocytes (%) (Auto) % (1.0-10.0) Eosinophils (%) (Auto) % (0.0-3.0) Basophils (%) (Auto) % (0.0-2.0) Neutrophils % (Manual) Pending Lymphocytes % (Manual) Pending Platelet Estimate Pending Platelet Morphology Pending Prothrombin Time Pending Prothrombin Time INR Pending Activated Partial Thromboplast Time Pending Sodium Level Pending Potassium Level Pending Chloride Level Pending Carbon Dioxide Level Pending Blood Urea Nitrogen Pending Creatinine Pending Estimated Glomerular Filtration Rate Pending Glucose Level Pending Calcium Level Pending Magnesium Level Pending Total Bilirubin Pending Aspartate Amino Transferase (AST) Pending Alanine Aminotransferase (ALT) Pending Alkaline Phosphatase Pending Ammonia Pending Total Creatine Kinase Pending Troponin I Pending Total Protein Pending Albumin Pending Globulin Pending Lipase Pending Serum Alcohol Pending Rhythm Strip Diag. Results EP Interpretation: yes Rhythm: NSR, no PVC's, no ectopy Status: improved Disposition: ADMITTED INPATIENT Condition: Serious Scripts No Active Prescriptions or Reported Meds Referrals: NOT CHOSEN IPA/,REFERRING (PCP) Rene Ventura MD Sep 27, 2020 14:17
[2020-09-27 14:27] LABS: INR 1.3 (0.9-1.1)
[2020-09-27 14:30] LABS: ANION GAP 11 mmol/L (5-15); BLOOD UREA NITROGEN 16 mg/dL (7-18); CALCIUM 7.5 MG/DL (8.5-10.1); CARBON DIOXIDE 20 MMOL/L (21-32); CHLORIDE 90 MMOL/L (98-107); CREATININE 1.2 MG/DL (0.55-1.30); POTASSIUM 4.5 MMOL/L (3.5-5.1); SODIUM 121 MMOL/L (136-145)
[2020-09-27 14:37] LABS: AMMONIA 74 umol/L (11-32)
[2020-09-27 14:42] LABS: ALANINE AMINOTRANSFERASE 63 U/L (12-78); ALBUMIN 2.3 G/DL (3.4-5.0); ALBUMIN/GLOBULIN RATIO 0.4 (1.0-2.7); ALKALINE PHOSPHATASE 175 U/L (46-116); ASPARTATE AMINO TRANSFERASE 164 U/L (15-37); BILIRUBIN,TOTAL 2.9 MG/DL (0.2-1.0); CREATINE KINASE 1445 U/L (26-308)
[2020-09-27 14:43] LABS: BILIRUBIN,DIRECT 1.6 MG/DL (0.0-0.3)
[2020-09-27] MEDS ORDERED: LORazepam Inj 2mg/ml 1ml IV ONE (14:45)
[2020-09-27] MEDS ORDERED: chlordiazePOXIDE 25mg Cap ORAL ONE (14:45)
--- NOTE | 2020-09-27 16:46 | Diagnostic Imaging Report ---
Indication: Abdominal pain Technique: Supine view of the abdomen Comparison: none Findings: Body habitus limits evaluation. Generalized increased attenuation may reflect ascites fluid given history of multiple prior paracenteses. No definite gaseous distention of large or small bowel. There is evidence of prior upper lumbar and lower thoracic spinal fusion surgery. There is evidence of a ventral hernia Impression: No definite acute process
--- NOTE | 2020-09-27 16:47 | Diagnostic Imaging Report ---
Indication: Shortness of breath Technique: One view of the chest Comparison: none Findings: Lung bases are clear. The heart size is normal. Impression: Negative
[2020-09-27 17:00] VITALS: BP 122/77
[2020-09-27 19:22] LABS: BILIRUBIN, URINE 1+ (NEGATIVE); GLUCOSE, URINE (UA) NEGATIVE (NEGATIVE); KETONES,URINE 2+ (NEGATIVE); LEUKOCYTE ESTERASE ,URINE 1+ (NEGATIVE); PH,URINE 5 (4.5-8.0); PROTEIN,URINE 2+ (NEGATIVE); UROBILINOGEN,URINE 4 MG/DL (0.0-1.0)
[2020-09-27 19:36] LABS: APPEARANCE,URINE SLIGHTLY CLOUDY; COLOR,URINE YELLOW; NITRITE,URINE NEGATIVE (NEGATIVE)
[2020-09-27 20:00] VITALS: BP 118/70
--- NOTE | 2020-09-27 21:45 | History and Physical Report ---
DATE OF ADMISSION: 09/27/2020 I am covering for Dr. Eduardo England. This is basically Dr. Eduardo England's patient. HISTORY OF PRESENT ILLNESS: I am covering for Dr. Eduardo England. patient came in, has history of alcohol abuse, came in with ascites, alcohol withdrawal. Recently got paracentesis with 11 liters removed. Patient got some Librium to manage the DTs. Patient also has chronic anemia. Patient also has elevated ammonia. Patient has a tendency to sign AMA. Patient basically had been vomiting up food material. Again was complaining of abdominal pain as well. Denies seizures. No withdrawals. Denies nausea, vomiting, or diarrhea. Complains of abdominal pain. Denies fever or chills. Denied cough. PAST MEDICAL HISTORY: Alcoholic cirrhosis, history of pancytopenia, history of status post paracentesis, history of GI bleed. ALLERGIES: No known allergies. MEDICATIONS: None. FAMILY HISTORY: Noncontributory. SOCIAL HISTORY: Does have history of smoking. Does history of alcohol abuse. No history of drug abuse. REVIEW OF SYSTEMS: HEENT: Denies headaches. RESPIRATORY: Does have some shortness of breath that is mild. Denies cough. CARDIOVASCULAR: Denies chest pain. ABDOMEN: Reports abdominal pain. Reports vomiting food stuff. Denies hematemesis. EXTREMITIES: Denies pain in lower extremities. CENTRAL NERVOUS SYSTEM: Denies change in speech pattern. PHYSICAL EXAMINATION: VITAL SIGNS: Temperature is 98.2, pulse 84, blood pressure 158/76. HEENT: PERRLA. NECK: Supple. No lymphadenopathy. CHEST: Clear to auscultation. CARDIOVASCULAR: Regular rate and rhythm. No murmurs or extra sounds. GASTROINTESTINAL: Soft. Positive bowel sounds. Abdomen is distended. Patient does not have tense abdomen. EXTREMITIES: 1+ edema. Reflexes in both sides. Able to move extremities. NEUROLOGIC: Generalized weakness. LABORATORY DATA: WBC of 5.8, hemoglobin of 8.1, platelets 121. Sodium 121, potassium 4.5, BUN of 16, creatinine 1.5, glucose of 127. AST of 164, ALT of 63, alkaline phosphatase of 175, total bilirubin 2.9. Troponin 0.018. ASSESSMENT AND PLAN: Elevated LFTs, hyponatremia, acute renal failure, anemia, rule out alcohol withdrawal, upper GI bleed, chronic anemia, status post recent paracentesis. Does not have tense abdomen. I have consulted Dr. Cohen, Dr. Manolo Quintana, Dr. Smith, and Dr. Naik to help with the management of DTs as well as for the management of the hyponatremia as well as anemia as well as for the GI bleed. Guille Story M.D. DR: CECILIA JOB#: [id number] CC:
--- NOTE | 2020-09-27 23:16 | Psychiatry Consultation ---
Psychiatry Consultation Psychiatry Consultation Chief Complaint: Abdominal Pain History of Present Illness: 45-year-old male with a history of alcohol dependence who has been admitted to the hospital for alcohol withdrawal. Patient presents with anxiety and shakes, low energy. Patient is not suicidal or homicidal ideation. PAST PSYCHIATRIC HISTORY: Depression, anxiety. PAST MEDICAL HISTORY: Pancytopenia, liver disease, GI bleed. ALLERGIES: No known drug allergies. SUBSTANCE ABUSE HISTORY: No known history of illicit drug use or alcohol. Allergies: Coded Allergies: No Known Allergies (Unverified , 05/24/20) Medication History No Active Prescriptions or Reported Meds Objective Data Height (Feet): 5 Height (Inches): 4.00 Weight (Pounds): 180 Additional Comments: MENTAL STATUS EXAMINATION: Patient is alert, oriented times self. Mood is anxious. Affect is blunted, congruent with mood. Thought process is concrete. Thought content, no suicidal or homicidal ideation. Cognition is impaired. Insight and judgment is impaired. ASSESSMENT: [place] I Alcohol dependence. Alcohol withdrawal. [place] II Deferred. [place] III As above. [place] IV Homelessness. [place] V 20. PLAN: 1. We will start patient on Librium. 2. Ativan p.r.n. 3. Folate and thiamine. Allison Naik MD Sep 27, 2020 23:16
[2020-09-28] VITALS: BP 111/75
[2020-09-28 04:00] VITALS: BP 115/62
[2020-09-28] MEDS: chlordiazePOXIDE 25mg Cap ORAL SCH ×3 (05:44→21:17)
--- NOTE | 2020-09-28 06:38 | Consultation ---
History of Present Illness General Chief Complaint: Abdominal Pain Present Illness Allergies: Coded Allergies: No Known Allergies (Unverified , 05/24/20) Medication History No Active Prescriptions or Reported Meds Patient History Healthcare decision maker N Resuscitation status Advanced Directive on File Physical Exam Last 24 Hour Vital Signs Date Time Temp Pulse Resp B/P (MAP) Pulse Ox O2 Delivery O2 Flow Rate FiO2 09/28/20 04:00 98.0 89 20 115/62 (79) 99 09/28/20 00:00 97.8 78 20 111/75 (87) 98 09/27/20 23:25 Room Air 09/27/20 20:29 98.0 98 18 118/70 100 Room Air 09/27/20 20:00 98.0 98 18 118/70 100 Room Air 09/27/20 17:00 98.2 112 20 122/77 100 Room Air 09/27/20 15:23 104 20 124/77 100 09/27/20 14:53 127 20 124/77 100 09/27/20 13:30 84 16 Room Air 09/27/20 13:30 98.2 16 158/76 99 Room Air 09/27/20 13:12 98.2 84 16 158/76 (103) 99 Room Air Laboratory Tests Test 09/27/20 13:40 09/27/20 19:10 White Blood Count 5.8 K/UL (4.8-10.8) Red Blood Count 2.83 M/UL (4.70-6.10) L Hemoglobin 8.1 G/DL (14.2-18.0) L Hematocrit 25.0 % (42.0-52.0) L Mean Corpuscular Volume 88 FL (80-99) Mean Corpuscular Hemoglobin 28.7 PG (27.0-31.0) Mean Corpuscular Hemoglobin Concent 32.5 G/DL (32.0-36.0) Red Cell Distribution Width 16.4 % (11.6-14.8) H Platelet Count 121 K/UL (150-450) L Mean Platelet Volume 7.2 FL (6.5-10.1) Neutrophils (%) (Auto) % (45.0-75.0) Lymphocytes (%) (Auto) % (20.0-45.0) Monocytes (%) (Auto) % (1.0-10.0) Eosinophils (%) (Auto) % (0.0-3.0) Basophils (%) (Auto) % (0.0-2.0) Differential Total Cells Counted 100 Neutrophils % (Manual) 85 % (45-75) H Lymphocytes % (Manual) 9 % (20-45) L Monocytes % (Manual) 6 % (1-10) Eosinophils % (Manual) 0 % (0-3) Basophils % (Manual) 0 % (0-2) Band Neutrophils 0 % (0-8) Platelet Estimate Decreased L Platelet Morphology Normal Hypochromasia 1+ Anisocytosis 1+ Prothrombin Time 14.0 SEC (9.30-11.50) H Prothromb Time International Ratio 1.3 (0.9-1.1) H Activated Partial Thromboplast Time 31 SEC (23-33) Sodium Level 121 MMOL/L (136-145) L Potassium Level 4.5 MMOL/L (3.5-5.1) Chloride Level 90 MMOL/L (98-107) L Carbon Dioxide Level 20 MMOL/L (21-32) L Anion Gap 11 mmol/L (5-15) Blood Urea Nitrogen 16 mg/dL (7-18) Creatinine 1.2 MG/DL (0.55-1.30) Estimat Glomerular Filtration Rate > 60 mL/min (>60) Glucose Level 127 MG/DL (74-106) H Calcium Level 7.5 MG/DL (8.5-10.1) L Magnesium Level 1.9 MG/DL (1.8-2.4) Total Bilirubin 2.9 MG/DL (0.2-1.0) H Direct Bilirubin 1.6 MG/DL (0.0-0.3) H Aspartate Amino Transf (AST/SGOT) 164 U/L (15-37) H Alanine Aminotransferase (ALT/SGPT) 63 U/L (12-78) Alkaline Phosphatase 175 U/L (46-116) H Ammonia 74 umol/L (11-32) H Total Creatine Kinase 1445 U/L (26-308) H Troponin I 0.018 ng/mL (0.000-0.056) Total Protein 7.6 G/DL (6.4-8.2) Albumin 2.3 G/DL (3.4-5.0) L Globulin 5.3 g/dL Albumin/Globulin Ratio 0.4 (1.0-2.7) L Lipase 229 U/L (73-393) Serum Alcohol 173 mg/dL Urine Color Yellow Urine Appearance Slightly cloudy Urine pH 5 (4.5-8.0) Urine Specific [place] 1.025 (1.005-1.035) Urine Protein 2+ (NEGATIVE) H Urine Glucose (UA) Negative (NEGATIVE) Urine Ketones 2+ (NEGATIVE) H Urine Blood Negative (NEGATIVE) Urine Nitrite Negative (NEGATIVE) Urine Bilirubin 1+ (NEGATIVE) H Urine Ictotest Negative (NEGATIVE) Urine Urobilinogen 4 MG/DL (0.0-1.0) H Urine Leukocyte Esterase 1+ (NEGATIVE) H Urine RBC 0 /HPF (0 - 0) Urine WBC 5-10 /HPF (0 - 0) H Urine Squamous Epithelial Cells Occasional /LPF Urine Bacteria Few /HPF (NONE) Urine Hyaline Casts 0-2 /LPF (NONE) H Urine Opiates Screen Negative (NEGATIVE) Urine Barbiturates Screen Negative (NEGATIVE) Phencyclidine (PCP) Screen Negative (NEGATIVE) Urine Amphetamines Screen Negative (NEGATIVE) Urine Benzodiazepines Screen Negative (NEGATIVE) Urine Cocaine Screen Negative (NEGATIVE) Urine Marijuana (THC) Screen Negative (NEGATIVE) Height (Feet): 5 Height (Inches): 3.00 Weight (Pounds): 178 Medications Current Medications Medications (Trade) Dose Ordered Sig/Desirae Route PRN Reason Start Time Stop Time Status Last Admin Dose Admin Chlordiazepoxide (Librium) 25 mg EVERY 8 HOURS ORAL 09/28/20 06:00 10/05/20 05:59 09/28/20 05:44 Diazepam (Valium) 10 mg EVERY 2 HOURS PRN ORAL For Anxiety 09/27/20 23:30 10/04/20 23:29 Diphenhydramine HCl (Benadryl) 25 mg Q6H PRN ORAL Itching 09/27/20 22:45 10/27/20 22:44 Folic Acid (Folate) 1 mg DAILY ORAL 09/28/20 09:00 10/28/20 08:59 Ondansetron HCl (Zofran) 4 mg EVERY 4 HOURS PRN IVP Nausea & Vomiting 09/27/20 22:15 10/27/20 22:14 Temazepam (RestoriL) 15 mg HSPRN PRN ORAL Insomnia 09/27/20 22:45 10/04/20 22:44 Thiamine HCl (Vitamin B1) 100 mg DAILY ORAL 09/28/20 09:00 10/28/20 08:59 Assessment/Plan Assessment/Plan: Hematology Consultation REQ MD: Guille Willis DOS: 09/28/20 RFC: Pancytopenia HPI 45-year-old male well known to me, presents with abdominal distention. History of cirrhosis. States that he needs to have his fluid taken out. Denies pain. Denies nausea or vomiting. Denies fevers or chills. Has been here previously to have his fluid removed. No other aggravating relieving factors. 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-19 Testing performed FIREBREAK CUTTER: No Patient History Past Medical History: other - Cirrhosis Past Surgical History: none Pertinent Family History: none Social History: Denies: smoking, alcohol use, drug use Immunizations: UTD Reviewed Nursing Documentation: PMH: Agreed; PSxH: Agreed Nursing Documentation-PMH Past Medical History: No History, Except For Hx Cardiac Problems: No - liver failure Hx Cancer: No Hx Gastrointestinal Problems: Yes - abdominal hernia Hx Neurological Problems: No Review of Systems All Other Systems: negative except mentioned in HPI PE General: no apparent distress, alert, GCS 15, non-toxic Head: normocephalic, atraumatic HEENT: hearing grossly normal, normal pharynx, no angioedema, normal voice Neck: full range of motion, supple/symm/no masses Respiratory: chest non-tender, lungs clear, normal breath sounds, speaking full sentences Cardiovascular: regular rate, rhythm, no edema Gastrointestinal: normal bowel sounds, soft, non-distended, distended Rectal: deferred Genitourinary: normal inspection, no CVA tenderness Musculoskeletal: back normal, normal range of motion, gait/station normal, non- tender Labs: noted Imaging: reviewed Assessment and Recs # Pancytopenia likely related to cirrhosis, reviewed prior ct and us of the abd --> get hepatitis and hiv panel --> correct coagulopathy as needed --> neupogen and plt transfusion prn --> wbc 3-->5 --> hgb 7.2-->8.1 --> plt 89-->121 --> p smear has been reviewed for blasts --> anemia panel reviewed # Coagulopathy -- with elev markers --> correct as needed, pre surg # Alcoholic cirrhosis of liver with ascites --> rifax, lactulose as per gi --> s/p para done 12l # Hepatic encephalopathy -> stable # Hyponatremia --> per renal # Dvt ppx scds Appreciate consultation and dw Manolo Castle MD Sep 28, 2020 06:38
[2020-09-28 07:30] LABS: HEMATOCRIT 22.1 % (42.0-52.0); HEMOGLOBIN 7.3 G/DL (14.2-18.0); MEAN CORPUSCULAR VOLUME 88 FL (80-99); PLATELET COUNT 102 K/UL (150-450); RED CELL DISTRIBUTION WIDTH 16.9 % (11.6-14.8)
[2020-09-28 08:00] VITALS: BP 116/67
[2020-09-28 08:08] LABS: ALANINE AMINOTRANSFERASE 51 U/L (12-78); ALBUMIN/GLOBULIN RATIO 0.4 (1.0-2.7); ALKALINE PHOSPHATASE 153 U/L (46-116); ANION GAP 9 mmol/L (5-15); ASPARTATE AMINO TRANSFERASE 132 U/L (15-37); BILIRUBIN,TOTAL 2.9 MG/DL (0.2-1.0); BLOOD UREA NITROGEN 15 mg/dL (7-18); CALCIUM 7.1 MG/DL (8.5-10.1); CARBON DIOXIDE 20 MMOL/L (21-32); CHLORIDE 94 MMOL/L (98-107); CREATININE 0.9 MG/DL (0.55-1.30); POTASSIUM 4.4 MMOL/L (3.5-5.1); SODIUM 123 MMOL/L (136-145)
[2020-09-28 08:12] LABS: BILIRUBIN,DIRECT 1.6 MG/DL (0.0-0.3)
[2020-09-28] MEDS ORDERED: Thiamine 100mg tab ORAL SCH (09:00)
--- NOTE | 2020-09-28 10:43 | General Progress Note ---
Subjective ROS Limited/Unobtainable: No Allergies: Coded Allergies: No Known Allergies (Unverified , 05/24/20) Objective Last 24 Hour Vital Signs Date Time Temp Pulse Resp B/P (MAP) Pulse Ox O2 Delivery O2 Flow Rate FiO2 09/28/20 09:00 Room Air 09/28/20 08:00 98.1 113 19 116/67 (83) 97 09/28/20 04:00 98.0 89 20 115/62 (79) 99 09/28/20 00:00 97.8 78 20 111/75 (87) 98 09/27/20 23:25 Room Air 09/27/20 20:29 98.0 98 18 118/70 100 Room Air 09/27/20 20:00 98.0 98 18 118/70 100 Room Air 09/27/20 17:00 98.2 112 20 122/77 100 Room Air 09/27/20 15:23 104 20 124/77 100 09/27/20 14:53 127 20 124/77 100 09/27/20 13:30 84 16 Room Air 09/27/20 13:30 98.2 16 158/76 99 Room Air 09/27/20 13:12 98.2 84 16 158/76 (103) 99 Room Air Laboratory Tests 09/27/20 13:40: White Blood Count 5.8, Red Blood Count 2.83L, Hemoglobin 8.1L, Hematocrit 25.0L, Mean Corpuscular Volume 88, Mean Corpuscular Hemoglobin 28.7, Mean Corpuscular Hemoglobin Concent 32.5, Red Cell Distribution Width 16.4H, Platelet Count 121L, Mean Platelet Volume 7.2, Neutrophils (%) (Auto) , Lymphocytes (%) (Auto) , Monocytes (%) (Auto) , Eosinophils (%) (Auto) , Basophils (%) (Auto) , Differential Total Cells Counted 100, Neutrophils % (Manual) 85H, Lymphocytes % (Manual) 9L, Monocytes % (Manual) 6, Eosinophils % (Manual) 0, Basophils % (Manual) 0, Band Neutrophils 0, Platelet Estimate DecreasedL, Platelet Morphology Normal, Hypochromasia 1+, Anisocytosis 1+, Prothrombin Time 14.0H, Prothromb Time International Ratio 1.3H, Activated Partial Thromboplast Time 31, Sodium Level 121L, Potassium Level 4.5, Chloride Level 90L, Carbon Dioxide Level 20L, Anion Gap 11, Blood Urea Nitrogen 16, Creatinine 1.2, Estimat Glomerular Filtration Rate > 60, Glucose Level 127H, Calcium Level 7.5L, Magnesium Level 1.9, Total Bilirubin 2.9H, Direct Bilirubin 1.6H, Aspartate Amino Transf (AST/SGOT) 164H, Alanine Aminotransferase (ALT/SGPT) 63, Alkaline Phosphatase 175H, Ammonia 74H, Total Creatine Kinase 1445H, Troponin I 0.018, Total Protein 7.6, Albumin 2.3L, Globulin 5.3, Albumin/Globulin Ratio 0.4L, Lipase 229, Serum Alcohol 173 09/27/20 19:10: Urine Color Yellow, Urine Appearance Slightly cloudy, Urine pH 5, Urine Specific [place] 1.025, Urine Protein 2+H, Urine Glucose (UA) Negative, Urine Ketones 2+H , Urine Blood Negative, Urine Nitrite Negative, Urine Bilirubin 1+H, Urine Ictotest Negative, Urine Urobilinogen 4H, Urine Leukocyte Esterase 1+H, Urine RBC 0, Urine WBC 5-10H, Urine Squamous Epithelial Cells Occasional, Urine Bacteria Few, Urine Hyaline Casts 0-2H, Urine Opiates Screen Negative, Urine Barbiturates Screen Negative, Phencyclidine (PCP) Screen Negative, Urine Amphetamines Screen Negative, Urine Benzodiazepines Screen Negative, Urine Cocaine Screen Negative, Urine Marijuana (THC) Screen Negative 09/28/20 07:10: White Blood Count 4.0L, Red Blood Count 2.50L, Hemoglobin 7.3L, Hematocrit 22.1L , Mean Corpuscular Volume 88, Mean Corpuscular Hemoglobin 29.0, Mean Corpuscular Hemoglobin Concent 32.8, Red Cell Distribution Width 16.9H, Platelet Count 102L, Mean Platelet Volume 6.7, Neutrophils (%) (Auto) , Lymphocytes (%) (Auto) , Monocytes (%) (Auto) , Eosinophils (%) (Auto) , Basophils (%) (Auto) , Differential Total Cells Counted 100, Neutrophils % (Manual) 81H, Lymphocytes % (Manual) 8L, Monocytes % (Manual) 10, Eosinophils % (Manual) 1, Basophils % (Manual) 0, Band Neutrophils 0, Platelet Estimate DecreasedL, Platelet Morphology Normal, Hypochromasia 1+, Anisocytosis 1+, Sodium Level 123L, Potassium Level 4.4, Chloride Level 94L, Carbon Dioxide Level 20L, Anion Gap 9, Blood Urea Nitrogen 15, Creatinine 0.9, Estimat Glomerular Filtration Rate > 60, Glucose Level 69L, Calcium Level 7.1L, Total Bilirubin 2.9H, Direct Bilirubin 1.6H, Aspartate Amino Transf (AST/SGOT) 132H, Alanine Aminotransferase (ALT/SGPT) 51, Alkaline Phosphatase 153H, Total Protein 6.6, Albumin 2.0L, Globulin 4.6, Albumin/Globulin Ratio 0.4L Height (Feet): 5 Height (Inches): 3.00 Weight (Pounds): 178 General Appearance: alert EENT: normal ENT inspection Neck: supple Cardiovascular: normal rate Respiratory/Chest: decreased breath sounds Abdomen: normal bowel sounds, non tender, soft Extremities: non-tender Assessment/Plan Assessment/Plan: cirrhosis ascites folic acid def hypo natremia thrombocytopenia portal hypertension elevated ammonia paracentesis folic acid lactulose and xifaxan may need EGD repeat labs Montana Cohen MD Sep 28, 2020 10:43
[2020-09-28 12:00] VITALS: BP 112/71
[2020-09-28] MEDS: Lactulose 20gm/30ml UDC ORAL SCH ×2 (13:35→17:49)
--- NOTE | 2020-09-28 16:00 | Consultation ---
Consult Note Consult Note I am asked to evaluate the patient at the request of Dr. England for abnormal electrolytes. Patient very well-known to me from his previous admission. Patient presents with abdominal pain and vomiting. He says he has just been vomiting up food stuff. He does drink alcohol and last drink was yesterday. Denies seizures or withdrawal but he says he gets shaky when he stops drinking. He says his stools have been normal. He denies diarrhea, melena or constipation. The pain is with fullness throughout his abdomen and diffuse without radiation. He rates the pain 8/10. Has not taken anything to treat the pain. Patient denies fevers or chills. He denies productive cough and sore throat. Patient is uncertain whether he has been exposed to Covid positive contacts. The patient was last admitted here September 13-. Ended up leaving AGAINST MEDICAL ADVICE. 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: No Past Medical History: see triage record, old chart reviewed Social History: Reports: alcohol use Social History Narrative from [facility], lives in a van by himself Reviewed Nursing Documentation: PMH: Agreed; PSxH: Agreed Past Medical History: No History, Except For Hx Gastrointestinal Problems: Yes Vital Signs Date Time Temp Pulse Resp B/P (MAP) Pulse Ox O2 Delivery O2 Flow Rate FiO2 09/27/20 13:12 98.2 84 16 158/76 (103) 99 Room Air Physical Exam : Gen: NAD, weak HEENT: NCAT Pulm: BL chest rise on RA, decreased breath sound bases Abd: Very distended, +fluid wave, umbilical hernia, minimally TTP Ext: No c/c/e Skin: No visible rashes Neuro: Awake, alert, interactive . Assessment/Plan Impression: Patient presents with liver failure. History of alcoholic cirrhosis with ascites Renal parameters are stable. Low sodium is as a result of hypoalbuminemia and third spacing. Patient is severely anemic. Suggestion isotonic fluid administration with slow diuresis Muro catheter if allows Monitor intake and output Anemia work-up GI support Monitor renal parameters and electrolytes Avoid nephrotoxic's Lactulose and Xifaxan P.o. fluid restriction Per orders True Smith MD Sep 28, 2020 16:00
--- NOTE | 2020-09-28 16:52 | Pre-Procedure Note/Attestation ---
Pre-Procedure Note/Attestation Complete Prior to Procedure Planned Procedure: not applicable Procedure Narrative: paracentesis Indications for Procedure Pre-Operative Diagnosis: ascites Attestation I attest that I discussed the nature of the procedure; its benefits; risks and complications; and alternatives (and the risks and benefits of such alternatives), prior to the procedure, with the patient (or the patient's legal sales representative trainee). I attest that, if there was a reasonable possibility of needing a blood almanzar sfusion, the patient (or the patient's legal sales representative trainee) was given the [facility] standardized written summary, pursuant to the Ruben Maritza Blood Safety Act ([place] Health and Safety Code # 1645, as amended). I attest that I re-evaluated the patient just prior to the surgery and that there has been no change in the patient's H&P, except as documented below: Dominguez Guadarrama MD Sep 28, 2020 16:52
--- NOTE | 2020-09-28 16:53 | Brief Operative Note ---
Immediate Post Operative Note Operative Note Pre-op Diagnosis: ascites Procedure: paracentesis Post-op Diagnosis: same as pre-op Surgeon: Janusz Kamara Specimen: yes - 50 ml fluid saved Complications: none Fluids: none Implant(s) used?: No Dominguez Kamara MD Sep 28, 2020 16:53
[2020-09-28 16:57] VITALS: BP 118/74
--- NOTE | 2020-09-28 16:59 | Diagnostic Imaging Report ---
Indications: Right lower quadrant Technique: Ultrasound used to localize optimal puncture site. Sterile prepping and draping right lower quadrant. Local anesthesia with 1% lidocaine. Under real-time ultrasound guidance, puncture peritoneal space using paracentesis needle. Stylet removed. Catheter placed to vacuum bottle suction. Total 5700 liters of fluid aspirated. Patient tolerated procedure well, without immediate complication. Findings: Followup sonography demonstrates resolution of most of the peritoneal fluid. Impression: Successful ultrasound-guided paracentesis, yielding liters of fluid
[2020-09-28] MEDS ORDERED: NaCl 3% 500ml 500 ML IV ONE (17:00)
[2020-09-28 20:00] VITALS: BP 122/68
--- NOTE | 2020-09-28 20:00 | Consultation ---
DATE OF CONSULTATION: 09/28/2020 CONSULTING PHYSICIAN: Allison Naik MD HISTORY OF PRESENT ILLNESS: This is a 45-year-old male with a history of alcohol dependence who has been admitted to the hospital for alcohol withdrawal. Patient presents with anxiety and shakes, low energy. Patient is not suicidal or homicidal ideation. PAST PSYCHIATRIC HISTORY: Depression, anxiety. PAST MEDICAL HISTORY: Pancytopenia, liver disease, GI bleed. ALLERGIES: No known drug allergies. SUBSTANCE ABUSE HISTORY: No known history of illicit drug use or alcohol. MENTAL STATUS EXAMINATION: Patient is alert, oriented times self. Mood is anxious. Affect is blunted, congruent with mood. Thought process is concrete. Thought content, no suicidal or homicidal ideation. Cognition is impaired. Insight and judgment is impaired. ASSESSMENT: [place] I Alcohol dependence. Alcohol withdrawal. [place] II Deferred. [place] III As above. [place] IV Homelessness. [place] V 20. PLAN: 1. We will start patient on Librium. 2. Ativan p.r.n. 3. Folate and thiamine. Allison Naik M.D. DR: TYRELL JOB#: [id number] CC:
--- NOTE | 2020-09-28 21:31 | General Progress Note ---
Subjective ROS Limited/Unobtainable: Yes Allergies: Coded Allergies: No Known Allergies (Unverified , 05/24/20) Objective Last 24 Hour Vital Signs Date Time Temp Pulse Resp B/P (MAP) Pulse Ox O2 Delivery O2 Flow Rate FiO2 09/28/20 16:57 100.2 115 19 118/74 (89) 100 09/28/20 12:00 97.5 110 19 112/71 (85) 100 09/28/20 09:00 Room Air 09/28/20 08:00 98.1 113 19 116/67 (83) 97 09/28/20 04:00 98.0 89 20 115/62 (79) 99 09/28/20 00:00 97.8 78 20 111/75 (87) 98 09/27/20 23:25 Room Air Laboratory Tests 09/28/20 07:10: White Blood Count 4.0L, Red Blood Count 2.50L, Hemoglobin 7.3L, Hematocrit 22.1L , Mean Corpuscular Volume 88, Mean Corpuscular Hemoglobin 29.0, Mean Corpuscular Hemoglobin Concent 32.8, Red Cell Distribution Width 16.9H, Platelet Count 102L, Mean Platelet Volume 6.7, Neutrophils (%) (Auto) , Lymphocytes (%) (Auto) , Monocytes (%) (Auto) , Eosinophils (%) (Auto) , Basophils (%) (Auto) , Differential Total Cells Counted 100, Neutrophils % (Manual) 81H, Lymphocytes % (Manual) 8L, Monocytes % (Manual) 10, Eosinophils % (Manual) 1, Basophils % (Manual) 0, Band Neutrophils 0, Platelet Estimate DecreasedL, Platelet Morphology Normal, Hypochromasia 1+, Anisocytosis 1+, Sodium Level 123L, Potassium Level 4.4, Chloride Level 94L, Carbon Dioxide Level 20L, Anion Gap 9, Blood Urea Nitrogen 15, Creatinine 0.9, Estimat Glomerular Filtration Rate > 60, Glucose Level 69L, Calcium Level 7.1L, Total Bilirubin 2.9H, Direct Bilirubin 1.6H, Aspartate Amino Transf (AST/SGOT) 132H, Alanine Aminotransferase (ALT/SGPT) 51, Alkaline Phosphatase 153H, Total Protein 6.6, Albumin 2.0L, Globulin 4.6, Albumin/Globulin Ratio 0.4L Height (Feet): 5 Height (Inches): 3.00 Weight (Pounds): 178 Assessment/Plan Problem List: (1) Cirrhosis of liver ICD Codes: K74.60 - Unspecified cirrhosis of liver SNOMED: 87390061 (2) Pancreatitis ICD Codes: K85.90 - Acute pancreatitis without necrosis or infection, unspecified SNOMED: 13702162 (3) Abdominal pain ICD Codes: R10.9 - Unspecified abdominal pain SNOMED: 53365443 Qualifiers: Qualified Codes: R10.84 - Generalized abdominal pain (4) Alcoholic cirrhosis of liver with ascites ICD Codes: K70.31 - Alcoholic cirrhosis of liver with ascites SNOMED: 233040374, 350480038 (5) Anemia ICD Codes: D64.9 - Anemia, unspecified SNOMED: 354216677 Qualifiers: Qualified Codes: D64.9 - Anemia, unspecified (6) Hepatic encephalopathy ICD Codes: K72.90 - Hepatic failure, unspecified without coma SNOMED: 05305520 (7) Hyponatremia ICD Codes: E87.1 - Hypo-osmolality and hyponatremia SNOMED: 17268405 Status: progressing Assessment/Plan: gi consult s/p paracentesis afebrile vitals stable distended abdomin Guille Story MD Sep 28, 2020 21:31
[2020-09-29] VITALS: BP 107/66
[2020-09-29] MEDS ORDERED: Acetaminophen 500mg (ES) tab ORAL PRN (00:45)
[2020-09-29 04:00] VITALS: BP 120/76
--- NOTE | 2020-09-29 19:32 | Psychiatric Progress Note ---
Psychiatry Progress Note Psychiatry Progress Note Neurological/Psychiatric: Reports: anxiety, depressed, emotional problems Allergies: Coded Allergies: No Known Allergies (Unverified , 05/24/20) Objective Data Height (Feet): 5 Height (Inches): 3.00 Weight (Pounds): 178 General Appearance: alert Additional Comments: MENTAL STATUS EXAMINATION: Patient is alert, oriented times self. Mood is anxious. Affect is blunted, congruent with mood. Thought process is concrete. Thought content, no suicidal or homicidal ideation. Cognition is impaired. Insight and judgment is impaired. Assessment/Plan Status: progressing Assessment/Plan: ASSESSMENT: [place] I Alcohol dependence. Alcohol withdrawal. [place] II Deferred. [place] III As above. [place] IV Homelessness. [place] V 20. PLAN: 1. We will start patient on Librium. 2. Ativan p.r.n. 3. Folate and thiamine. Allison Naik MD Sep 29, 2020 19:32
--- NOTE | 2020-10-03 10:22 | Discharge Summary ---
Discharge Summary Discharge Summary _ DATE OF ADMISSION: 09/27/2020 DATE OF DISCHARGE: 09/29/2020 Patient left AGAINST MEDICAL ADVICE REASON FOR ADMISSION: 45 years old male with past medical history of alcoholic liver cirrhosis, hepatic encephalopathy, presented with complaints of abdominal pain and nonbl oody vomiting . Upon evaluation vital signs were stable. Laboratory work-up revealed no leukocytosis, hemoglobin 8.1, hematocrit 25 , platelet count 121. INR 1.3. Sodium 121, BUN 16, creatinine 1.2. Glucose 127. Total bili 2.9 direct bili 1.6, AST 164, ALT 63. Ammonia 74. Troponin -0.018. EKG revealed sinus rhythm m no acute ischemic changes. Urine toxicology screen negative. Serum alcohol 173. Urinalysis revealed +2 protein , +2 ketones, borderline pyuria and few bacteria. Abdominal x-ray revealed no definite acute process. Chest x-ray revealed no evidence of acute cardiopulmonary pathology. On examination abdomen was distended, guarding, with diffuse tenderness and fluid wave. In ED patient started on IV hydration , Pepcid, Reglan and Benadryl. Patient subsequently admitted to Med-Surg floor for further management. CONSULTANTS: GI specialist Dr. Cohen lay ups assembler Dr. Smith senior counsel commercial/ oncologist Dr. Quintana psychiatrist [facility]SE: Patient admitted to medical surgical floor. Patient undergone ultrasound-guided paracentesis , yielding 5.7 L of ascitic fluid. Cytology of ascitic fluid revealed no malignant cells. Patient started on lactulose and Xifaxan for hepatic encephalopathy. GI specialist recommended possible EGD Hotel Assistant Manager followed. Renal parameters electrolytes were closely monitor. Electrolytes corrected as needed. Low-sodium was a result of hypoalbuminemia and third spacing. Hotel Assistant Manager recommended insert short insertion of Muro catheter with close monitoring of intake and output and avoid nephrotoxic as well as continue with oral fluid restriction, isotonic fluid administration and slow diuresis .. S Patient refused insertion of Muro catheter and some interventions. Sodium only slightly improved. LFT and bilirubin closely monitored. AST down to 132 bilirubin remained elevated. Hepatitis panel and HIV panel were ordered. Patient was noted to be pancytopenic. Counts were closely monitored. Hemoglobin and hematocrit were closely monitored with goal to keep hemoglobin above 7 . The next day hemoglobin 7.3, hematocrit 22.1. Pancytopenia was most likely related to cirrhosis. [place] Attacher reviewed prior CT and ultrasound of the abdomen available and prior anemia work- up. Patient was on folate and thiamine. DVT prophylaxis with SCD provided.. Librium and Ativan were on board as needed . On 09/29 patient decided to leave AGAINST MEDICAL ADVICE. The risks and consequences of signing AGAINST MEDICAL ADVICE were discussed with patient in detail. Patient verbalized understanding, nevertheless signed AMA form and left. FINAL DIAGNOSES: Alcoholic liver disease Cirrhosis Ascites, status post paracentesis Pancytopenia, likely due to liver cirrhosis Hyponatremia Thrombocytopenia Portal hypertension Hepatic encephalopathy Coagulopathy Folic acid deficiency Alcohol dependence Alcohol withdrawal Homelessness I have been assigned to dictate discharge summary for this account. I was not involved in the patient's management. Joyce Anderson NP Oct 03, 2020 10:22
== END 2020-09-29 05:20 | disposition left against medical advice (07) | DRG 280 ==
LOC: EDBD 13:15 → EMR 13:34 → 4E 14:57 → EDBEDREQ 19:00
PROC: 0W9G3ZZ Drainage of Peritoneal Cavity, Percutaneous Approach (ICD-10-PCS; principal; 2020-09-27)
DX: K70.31 Alcoholic cirrhosis of liver with ascites (principal); E87.1 Hypo-osmolality and hyponatremia; N17.9 Acute kidney failure, unspecified; D61.818 Other pancytopenia; K72.90 Hepatic failure, unspecified without coma; D68.9 Coagulation defect, unspecified; F10.239 Alcohol dependence with withdrawal, unspecified; K76.6 Portal hypertension; D69.6 Thrombocytopenia, unspecified; E53.8 Deficiency of other specified B group vitamins; Z59.0 Homelessness
CPT/HCPCS: 36415; 71045; 74018; 76942; 80053; 80307; 81003; 82140; 82248; 82550; 83690; 83735; 84484; 85007; 85025; 85610; 85730; 86850; 86900; 86901; 86920; 87081; 93005; 96361; 96374; 96375; 99285; G0480; J2765; J7030

== ENCOUNTER 2020-11-07 15:33 | Inpatient (IN) | payer MEDICAID ==
[~2020-11-07] VITALS: Ht 162.6 cm; Wt 72.1 kg
[~2020-11-07 15:33] MED LIST changes: -DiphenhydrAMINE 50mg/ml Inj IVP ONE; -Metoclopramide 10mg/2ml Inj IVP ONE
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
[2020-11-07] MEDS ORDERED: fentaNYL 100 mcg/2 mL IV ONE ×2 (15:45→15:52)
[2020-11-07] MEDS ORDERED: LORazepam Inj 2mg/ml 1ml IV ONE ×2 (15:45→17:30)
[2020-11-07 16:12] LABS: ANION GAP 11 mmol/L (5-15); BLOOD UREA NITROGEN 18 mg/dL (7-18); CALCIUM 8.4 MG/DL (8.5-10.1); CARBON DIOXIDE 20 MMOL/L (21-32); CHLORIDE 91 MMOL/L (98-107); CREATININE 1.1 MG/DL (0.55-1.30); POTASSIUM 4.5 MMOL/L (3.5-5.1); SODIUM 122 MMOL/L (136-145)
[2020-11-07 16:17] LABS: HEMATOCRIT 28.3 % (42.0-52.0); HEMOGLOBIN 9.3 G/DL (14.2-18.0); MEAN CORPUSCULAR VOLUME 90 FL (80-99); PLATELET COUNT 134 K/UL (150-450); RED BLOOD COUNT 3.15 M/UL (4.70-6.10); RED CELL DISTRIBUTION WIDTH 17.2 % (11.6-14.8); WHITE BLOOD COUNT 4.5 K/UL (4.8-10.8)
[2020-11-07 16:18] VITALS: BP 117/72
[2020-11-07 16:19] LABS: INR 1.1 (0.9-1.1)
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
[2020-11-07 16:25] LABS: ALANINE AMINOTRANSFERASE 46 U/L (12-78); ALBUMIN 2.7 G/DL (3.4-5.0); ALBUMIN/GLOBULIN RATIO 0.6 (1.0-2.7); ALKALINE PHOSPHATASE 246 U/L (46-116); ASPARTATE AMINO TRANSFERASE 106 U/L (15-37); BILIRUBIN,TOTAL 1.4 MG/DL (0.2-1.0)
[2020-11-07] MEDS ORDERED: Folic Acid 1 MG, Multivitamin - 12 Injection 10 ML, Thiamine HCl 100 MG in Sodium Chlor... IV ONE (16:30)
[2020-11-07 16:35] LABS: BILIRUBIN,DIRECT 1.1 MG/DL (0.0-0.3)
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
[2020-11-07 17:42] VITALS: BP 131/71
--- NOTE | 2020-11-07 18:03 | NUR ---
ED Nurse Note:called report to tele- given to pt. Marcia taken up stairs
[2020-11-07 18:37] LABS: APPEARANCE,URINE CLEAR; BILIRUBIN, URINE NEGATIVE (NEGATIVE); GLUCOSE, URINE (UA) NEGATIVE (NEGATIVE); KETONES,URINE NEGATIVE (NEGATIVE); LEUKOCYTE ESTERASE ,URINE 1+ (NEGATIVE); NITRITE,URINE NEGATIVE (NEGATIVE); PH,URINE 5 (4.5-8.0); PROTEIN,URINE 2+ (NEGATIVE); UROBILINOGEN,URINE 1 MG/DL (0.0-1.0)
[2020-11-07 18:42] VITALS: BP 108/70
--- NOTE | 2020-11-07 18:43 | NUR ---
NURSE NOTES: Patient admitted from ER via chuck, Jorge3, on room air, not in distress, pt slightly agitated and wanting to go "sleep in his car", no complaints of pain. PIV on left forearm patent and intact. Abdomen protuberant and distended, noted umbilical hernia. Muro cath secured and draining. Skin is intact. Belongings checked. Endorsed admission to NOC nurse. Bed low and locked, siderails up x 2, call light placed within reach and instructed to call nurse for assistance. Will continue to monitor.
[2020-11-07 18:59] LABS: COLOR,URINE YELLOW
[2020-11-07] MEDS ORDERED: LORazepam Inj 2mg/ml 1ml IV PRN (19:15)
--- NOTE | 2020-11-07 19:35 | NUR ---
NURSE NOTES: Received report from sugey van. newly admit at 1836. patient is on bed, awake. welsh speaking and speaks simple lithuanian. on room air. no sob. with muñoz catheter 14F for retention. per carlota, " he's complaining of pain on the urinary catheter site and wants to take out the muñoz catheter and wants to leave the hospital". patient is uncooperative and resistant to care. ambulates. classroom monitor in placed. am nurse paged dr. small for admission orders and dr. massey for his behavior. reiterated to call and ask for assistance to prevent fall or injury. bed locked and in lowest position. call light and light button within easy reach. bed alarm on. will continue plan of care.
--- NOTE | 2020-11-07 19:40 | NUR ---
NURSE HAND-OFF REPORT: Important Events on Shift: Pending admission orders, endorsed orders from Dr. Naik Patient Status: Guarded Diet: No orders yet Pending Orders: Admission orders Pending Results/Labs:N Pending MD notification:N Latest Vital Signs: Temperature 97.7 , Pulse 115 , B/P 108 /70 , Respiratory Rate 16 , O2 SAT 99 , Room Air, O2 Flow Rate . Vital Sign Comment: EKG Rhythm: Rhythm change?: MD Notified?: - MD Response: Latest Taylor Fall Score: 35 Fall Risk: Safety Measures: Call light , Bed Alarm , Side Rails , Bed position . Fall Precautions: Report given to Timi/Eileen RODRIGUEZ.
--- NOTE | 2020-11-07 19:45 | NUR ---
NURSE NOTES: received orders from dr. massey(endorsed by am nurse) to give ativan 2mg IM x1 and then q2 hours IM prn hold for BP < 110 / 60 or HR < 60; benadryl 50 mg x1. order noted and carried out.
[2020-11-07] MEDS ORDERED: traMADol 50mg tab ORAL PRN (20:00)
[2020-11-07] MEDS ORDERED: DiphenhydrAMINE 50mg/ml Inj IM SCH (20:00)
[2020-11-07] MEDS ORDERED: LORazepam Inj 2mg/ml 1ml IM PRN (20:00)
[2020-11-07] MEDS ORDERED: LORazepam Inj 2mg/ml 1ml IM SCH (20:00)
--- NOTE | 2020-11-07 20:45 | NUR ---
NURSE NOTES: unable to give ativan and benadryl. vitals of 90/68 mmhg, 115 bpm, 20 cpm, 100%, 98.4F. will re-check
[2020-11-07 21:00] VITALS: BP 100/60
--- NOTE | 2020-11-07 21:00 | NUR ---
NURSE NOTES: Received admission orders from dr. small. orders and noted out. charge nurse made aware.
--- NOTE | 2020-11-07 21:00 | NUR ---
NURSE NOTES: patient refused to participate to get abdominal girth.
--- NOTE | 2020-11-07 21:10 | NUR ---
Inverform Machine Operator: Addendum: 11/08/20 at 0247 by Clarice Sutherland RN wrong entry:
--- NOTE | 2020-11-07 21:10 | NUR ---
NURSE NOTES: patient wasn't swab for covid 19 in the ED due to known symptoms noted. Verified to and agreed to not swab the patient.
--- NOTE | 2020-11-07 21:30 | NUR ---
NURSE NOTES: patient wants to take out muñoz catheter. receives order from dr. small to d/c muñoz catheter. took out muñoz charge nurse made aware
--- NOTE | 2020-11-07 22:30 | NUR ---
NURSE NOTES: assisted patient to the bathroom. voided and had bowel movement.
[2020-11-08] VITALS: BP 102/61
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
--- NOTE | 2020-11-08 06:37 | NUR ---
NURSE NOTES: Patient wanted to leave the hospital and go to his car by [address] convinced patient that he needs to get check by the doctor first. charge nurse brianna is aware
[2020-11-08 07:03] LABS: ANION GAP 7 mmol/L (5-15); BLOOD UREA NITROGEN 14 mg/dL (7-18); CALCIUM 8.4 MG/DL (8.5-10.1); CARBON DIOXIDE 21 MMOL/L (21-32); CHLORIDE 93 MMOL/L (98-107); CREATININE 0.9 MG/DL (0.55-1.30); POTASSIUM 4.9 MMOL/L (3.5-5.1); SODIUM 121 MMOL/L (136-145)
--- NOTE | 2020-11-08 07:26 | NUR ---
NURSE HAND-OFF: Important Events on Shift: d/c muñoz catheter. episode of wanting to go AMA. Patient Status: stable Diet:regular Pending Orders: Pending Results/Labs: Pending MD notification: Latest Vital Signs: Temperature 97.7 , Pulse 113 , B/P 102 /61 , Respiratory Rate 18 , O2 SAT 100 , Room Air, O2 Flow Rate . Vital Sign Comment: Latest Taylor Fall Score: 20 Fall Risk: Low Risk Safety Measures: Call light Within Reach, Bed Alarm Zone 1, Side Rails Side Rails x2, Bed position Low and Locked. Fall Precautions: Yellow Socks Yellow Gown Door Sign Patient Fall Education Report given to sugey desir.
--- NOTE | 2020-11-08 07:53 | NUR ---
Probation Officer: Received report from JENNIFER Arellano. Patient observed to be awake, alert, and oriented x4. Seen lying in bed no s/sx of SOB/Distress, no c/o any pete or discomfort. Patient with IV site located on LFA gauge 20 running NS @ 75. IV site dry, intact, and no s/sx of infiltration. Patient verbalized desire to leave AMA, and took off cardiac monitoring leds and refused to have them placed on again. Notified Dr. Elizalde still waiting for any further orders. Will continue to monitor patient for any changes
[2020-11-08 08:00] VITALS: BP 97/63
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
--- NOTE | 2020-11-08 08:20 | NUR ---
NURSE NOTES: Patient alert, and oriented x4 continuously verbalizing desire to leave AMA. Patient seen by social sciences chair and still expressing desire to leave. Notified Dr. Elizalde. Explained to patient the multiple risks of leaving AMA, and yet still wants to go home. Patient verbalized understanding of the risks. Patient signed AMA form, all patient's belongings checked and accounted for. ID band removed of him leaving AMA.Patient left unit in stable condition.
[2020-11-08] MEDS ORDERED: Thiamine 100mg tab ORAL SCH (09:00)
[2020-11-08] MEDS ORDERED: Heparin 5000 units/ml inj SUBQ SCH (09:00)
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
--- NOTE | 2020-11-11 05:09 | Cardiology Report ---
APPROVED REPORT EKG Measurement Heart [id number] IA [id number] <Conclusion> Sinus tachycardia Otherwise normal ECG
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
--- NOTE | 2020-11-13 23:59 | Discharge Summary ---
DATE OF ADMISSION: 11/07/2020 DATE OF DISCHARGE: 11/08/2020 This is a 45-year-old male who came to the emergency room for having alcohol abuse intoxication and weakness. The patient is homeless. The patient this morning got up and he started going home. He signed AMA. PHYSICAL EXAMINATION: The patient is currently able to walk. His DTs is a little better. DISCHARGE DIAGNOSES: 1. Delirium tremens. 2. Alcohol abuse. 3. Dehydration. DIET: He is on regular diet. ACTIVITY: The patient has been walking. He is going to stay in the car. FOLLOWUP: The patient was [place] [facility] [place] PCP in one week. Mic Elizalde M.D. DR: KELLI JOB#: [id number] CC:
--- NOTE | 2020-11-14 01:29 | History and Physical Report ---
DATE OF ADMISSION: 11/07/2020 HISTORY OF PRESENT ILLNESS: This is a young 45-year-old male who came to the emergency room for having alcohol abuse, DTs, and generalized weakness. He came, also was found to have severe hyponatremia. His sodium level was 122. The patient with unsteady gait. He has no fever and no chills. The patient is currently homeless. He wants to go AMA, but he is so unsteady. Psychiatric consult was obtained for slight confusion. The patient denies any fever or chills. He is at high risk of fall. PAST MEDICAL HISTORY: None. ALLERGIES: None. MEDICATIONS: None. PHYSICAL EXAMINATION: GENERAL: This is a young, middle-aged male, who is currently awake, alert and oriented x2, generalized weakness and tremors. VITAL SIGNS: Blood pressure is 130/70, pulse 100, respirations 18, and temperature is no fever. SKIN: Dry. HEENT: NAD. CHEST: Bilateral few crackles. CARDIOVASCULAR: Regular rhythm. Tachycardia. ABDOMEN: Soft. Positive bowel sounds. Nontender EXTREMITIES: No edema. : Deferred. LABORATORY EXAMINATIONS: As earlier stated, sodium 122. ASSESSMENT: 1. Alcohol abuse. 2. DTs. 3. Hyponatremia. 4. Depression. PLAN: We will admit on tele bed. Start IV fluid, NS 75 mL/h, Librium 25 mg t.i.d., folic acid, thiamine, and increase p.o. fluids. PT and OT. Psychiatric consult. The patient is also complaining of pain in all body. We will also give him tramadol 50 mg p.o. q.6 h. p.r.n. for pain. Mic Elizalde M.D. DR: KELLI JOB#: [id number] CC:
== END 2020-11-08 08:20 | disposition left against medical advice (07) | DRG 930 ==
LOC: EDBD 15:33 → EMR 16:19 → EDBEDREQ 16:38 → 2E 16:50 → EDBEDREQ 17:31 → 2E 19:49
DX: S22.49XA Multiple fractures of ribs, unspecified side, initial encounter for closed fracture (principal); S32.431A Displaced fracture of anterior column [iliopubic] of right acetabulum, initial encounter for closed fracture; Y04.2XXA Assault by strike against or bumped into by another person, initial encounter; K72.90 Hepatic failure, unspecified without coma; E87.1 Hypo-osmolality and hyponatremia; K70.31 Alcoholic cirrhosis of liver with ascites; R26.81 Unsteadiness on feet; Z59.0 Homelessness; F10.131 Alcohol abuse with withdrawal delirium; E86.0 Dehydration; D64.9 Anemia, unspecified; Z91.19 Patient's noncompliance with other medical treatment and regimen; K76.6 Portal hypertension; I85.10 Secondary esophageal varices without bleeding; R16.1 Splenomegaly, not elsewhere classified; K40.20 Bilateral inguinal hernia, without obstruction or gangrene, not specified as recurrent; K42.9 Umbilical hernia without obstruction or gangrene; K80.20 Calculus of gallbladder without cholecystitis without obstruction; K57.90 Diverticulosis of intestine, part unspecified, without perforation or abscess without bleeding
CPT/HCPCS: 36415; 70450; 74176; 80048; 80053; 81003; 82140; 82248; 83690; 83735; 85007; 85025; 85610; 85730; 86850; 86900; 86901; 93005; 96374; 96375; 96376; 99285; J7030

== ENCOUNTER 2020-11-26 19:49 | Emergency (ER) | payer SELFPAY ==
[~2020-11-26] VITALS: Ht 157.5 cm; Wt 72.6 kg
[2020-11-26] MEDS ORDERED: HYDROcodone/Acetamin 5/325 tab ORAL ONE (20:15)
--- NOTE | 2020-11-26 20:33 | NUR ---
Medicated for pain as ordered.
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
[2020-11-26 22:56] VITALS: BP 117/74
--- NOTE | 2020-11-26 22:59 | NUR ---
patient slept well, woke up and wanted to be discharged. Refused placement,meals, just wanted to leave. Homeless checklist complete, all belongings with patient.
--- NOTE | 2020-11-26 23:00 | NUR ---
Patient stated no pain, feels much better, wanted to leave. Ambulated with steady gait.
== END 2020-11-26 23:00 | disposition other institution (70) ==
LOC: EDBD 19:49 → EDUNIT# 19:49 → EMR 20:10
DX: K43.9 Ventral hernia without obstruction or gangrene (principal)
CPT/HCPCS: 99283